=== PATIENT | female | born 1960 | race Two or more races ===

== ENCOUNTER 2018-03-12 10:23 | Inpatient (IN) | payer MEDICAID ==
[~2018-03-12] VITALS: Ht 154.9 cm; Wt 57.6 kg
[2018-03-12] VITALS (23 sets, daily range): BP systolic 80–172; BP diastolic 51–115
--- NOTE | 2018-03-12 10:34 | Emergency Room Report ---
History of Present Illness General Chief Complaint: CPR Source: EMS Present Illness HPI Patient is a 57-year-old male brought in by EMS after full arrest. 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 Recent decannulation. The patient was noted to have the low blood pressure the arrested about being transported by EMS. Patient prior history of seizure disorder. The patient been taking Vimpat as well as Keppra. The patient recently treated for urinary tract infection. The patient was noted to have arrest approximately 7 minutes prior to arrival and had ongoing CPR by EMS. Allergies: Coded Allergies: No Known Allergies (Unverified , 03/12/18) Patient History Past Medical History: see triage record Last Menstrual Period: na Reviewed Nursing Documentation: PMH: Agreed; PSxH: Agreed Review of Systems All Other Systems: limited - by acut Physical Exam Vital Signs Date Time Temp Pulse Resp B/P (MAP) Pulse Ox O2 Delivery O2 Flow Rate FiO2 03/12/18 10:10 0 0 0/0 0 Ambu-Bag Sp02 EP Interpretation: reviewed, normal General Appearance: severe distress, Chronically Ill Head: atraumatic Eyes: bilateral eye PERRL ENT: dry mucus membranes, other - stoma open Neck: limited range of motion, tracheotomy Respiratory: no retraction, respiratory distress, rales Cardiovascular #1: tachycardia, other - asystole Gastrointestinal: no guarding, no hernia, other - gtube present Genitourinary: no CVA tenderness Musculoskeletal: decreased range of motion Neurologic: motor weakness - unresponsive, other Skin: other - decubitus ulcer Procedures Critical Care Time Critical Care Time Patient had a critical medical condition which untreated could potentially result in life or limb threatening injury. Total critical care time excluding procedures approximately 45 minutes. Central Line Central Line : Consent: Emergent Central Line Lumen: triple Maximal Sterile Barrier Tech: yes cap, yes mask, yes sterile gown, yes sterile gloves, yes large sterile sheet, yes hand hygiene, yes chlorhexidine prep Central Line Postion: internal jugular (R) Anesthesia: Lidocaine Complications: none Central Line Post Position: sutured, good blood return, position confirmed w / CXR Attempts: One Patient Tolerated: Well Complications: None Intubation Intubation : Consent: Emergent Time of Intubation: 10:23 Tube Size (cm): 6.0 Breath Sounds after Intubation: equal Intubation Complications: no complications Post Intubation Xray: Yes Attempts: One Patient Tolerated: Well Complications: None Medical Decision Making Diagnostic Impression: Primary Impression: Cardiac arrest Additional Impressions: Respiratory failure Urinary tract infection Pneumonia ER Course patient presented after full arrest.Differential diagnoses included was not limited to cardiac arrhythmia, hypoxemia, pulmonary embolism among others. Because of complexity of patient's case laboratory testing and imaging studies were ordered.The patient was initially noted to have a full cardiac arrest. The patient was the intubated with a 6-0 ET tube. The patient was given epinephrine 1 as well as IV bicarbonate. The patient had subsequent return spontaneous circulation. The patient brief episode of V. tach this resolved spontaneously prior to cardioversion and was given amiodarone IV. Patient was discussed with Dr. Cortez for inpatient management. Labs Test 03/12/18 10:55 03/12/18 11:06 03/12/18 11:35 03/12/18 12:05 White Blood Count 25.6 K/UL (4.8-10.8) Red Blood Count 3.78 M/UL (4.20-5.40) Hemoglobin 11.1 G/DL (12.0-16.0) Hematocrit 36.0 % (37.0-47.0) Mean Corpuscular Volume 95 FL (80-99) Mean Corpuscular Hemoglobin 29.3 PG (27.0-31.0) Mean Corpuscular Hemoglobin Concent 30.7 G/DL (32.0-36.0) Red Cell Distribution Width 11.8 % (11.6-14.8) Platelet Count 254 K/UL (150-450) Mean Platelet Volume 7.2 FL (6.5-10.1) Neutrophils (%) (Auto) % (45.0-75.0) Lymphocytes (%) (Auto) % (20.0-45.0) Monocytes (%) (Auto) % (1.0-10.0) Eosinophils (%) (Auto) % (0.0-3.0) Basophils (%) (Auto) % (0.0-2.0) Differential Total Cells Counted 100 Neutrophils % (Manual) 76 % (45-75) Lymphocytes % (Manual) 12 % (20-45) Monocytes % (Manual) 10 % (1-10) Eosinophils % (Manual) 0 % (0-3) Basophils % (Manual) 0 % (0-2) Band Neutrophils 2 % (0-8) Platelet Estimate Adequate Platelet Morphology Normal Hypochromasia 1+ Prothrombin Time 12.3 SEC (9.30-11.50) Prothromb Time International Ratio 1.2 (0.9-1.1) Activated Partial Thromboplast Time 32 SEC (23-33) Sodium Level 145 MMOL/L (136-145) Potassium Level 3.4 MMOL/L (3.5-5.1) Chloride Level 107 MMOL/L (98-107) Carbon Dioxide Level 26 MMOL/L (21-32) Anion Gap 12 mmol/L (5-15) Blood Urea Nitrogen 18 mg/dL (7-18) Creatinine 0.8 MG/DL (0.55-1.30) Estimat Glomerular Filtration Rate > 60 mL/min (>60) Glucose Level 452 MG/DL (74-106) Calcium Level 8.6 MG/DL (8.5-10.1) Phosphorus Level 7.4 MG/DL (2.5-4.9) Total Bilirubin 0.2 MG/DL (0.2-1.0) Aspartate Amino Transf (AST/SGOT) 63 U/L (15-37) Alanine Aminotransferase (ALT/SGPT) 110 U/L (12-78) Alkaline Phosphatase 205 U/L (46-116) Total Creatine Kinase 62 U/L (26-308) Creatine Kinase MB < 0.5 NG/ML (0.0-3.6) Creatine Kinase MB Relative Index 0.8 Troponin I 0.006 ng/mL (0.000-0.056) Pro-B-Type Natriuretic Peptide 4798 pg/mL (0-125) Total Protein 5.9 G/DL (6.4-8.2) Albumin 2.0 G/DL (3.4-5.0) Globulin 3.9 g/dL Albumin/Globulin Ratio 0.5 (1.0-2.7) Arterial Blood pH 7.067 (7.350-7.450) Arterial Blood Partial Pressure CO2 90.3 mmHg (35.0-45.0) Arterial Blood Partial Pressure O2 50.9 mmHg (75.0-100.0) Arterial Blood HCO3 25.4 mmol/L (22.0-26.0) Arterial Blood Oxygen Saturation 79.7 % (92.0-98.0) Arterial Blood Base Excess -6.4 Akira Test Positive Urine Color Yellow Urine Appearance Slightly cloudy Urine pH 5 (4.5-8.0) Urine Specific [place] 1.025 (1.005-1.035) Urine Protein 4+ (NEGATIVE) Urine Glucose (UA) 4+ (NEGATIVE) Urine Ketones Negative (NEGATIVE) Urine Blood 4+ (NEGATIVE) Urine Nitrite Negative (NEGATIVE) Urine Bilirubin Negative (NEGATIVE) Urine Urobilinogen Normal MG/DL (0.0-1.0) Urine Leukocyte Esterase 3+ (NEGATIVE) Urine RBC 5-10 /HPF (0 - 2) Urine WBC 40-60 /HPF (0 - 2) Urine Squamous Epithelial Cells Few /LPF (NONE/OCC) Urine Bacteria Moderate /HPF (NONE) EKG Diagnostic Results Rate: normal Rhythm: NSR ST Segments: no acute changes Chest X-Ray Diagnostic Results Chest X-Ray Diagnostic Results : Chest X-Ray Ordered: Yes # of Views/Limited/Complete: 1 View Indication: Chest Pain EP Interpretation: No Interpretation: other - no pneumothorax, right lung infiltrate rib fracture Electronically Signed by: Electronically signed by Dr. Pablito Lamb M.D. Last Vital Signs Date Time Temp Pulse Resp B/P (MAP) Pulse Ox O2 Delivery O2 Flow Rate FiO2 03/12/18 10:10 0 0 0/0 0 Ambu-Bag Status: unchanged Disposition: ADMITTED INPATIENT Condition: Critical Pablito Lamb MD Mar 12, 2018 10:34
[2018-03-12] MEDS ORDERED: FAMOTIDINE10 MG ORAL (10:42)
[2018-03-12] MEDS ORDERED: FERROUS SU220 MG/53 PO (10:42)
[2018-03-12] MEDS ORDERED: PROCRIT2000 UNIT/ SUBQ (10:42)
[2018-03-12] MEDS ORDERED: MILK OF MA400 MG/51 GT (10:42)
[2018-03-12] MEDS ORDERED: LEVETIRACETAM500 MG GT (10:42)
[2018-03-12] MEDS ORDERED: FLEET ENEMA133 ML RECTAL (10:42)
[2018-03-12] MEDS ORDERED: BISACODYL5 MG GT (10:42)
[2018-03-12] MEDS ORDERED: VIMPAT200 MG GT (10:42)
[2018-03-12] MEDS ORDERED: DOCUSATE SODIU100 MG GT (10:42)
[2018-03-12] MEDS ORDERED: ATENOLOL25 MG GT (10:42)
[2018-03-12] MEDS ORDERED: ASPIR 8181 MG GT (10:42)
[2018-03-12] MEDS ORDERED: VITAMIN D1000 UNI1 GT (10:52)
[2018-03-12] MEDS ORDERED: SUPPORT118 ML GT (10:52)
[2018-03-12] MEDS ORDERED: ZOFRAN4 M3 GT (10:52)
[2018-03-12] MEDS ORDERED: TOPIRAMATE100 MG GT (10:52)
[2018-03-12] MEDS ORDERED: ACETAMINOPHEN LIQUID GT (10:52)
[2018-03-12] MEDS ORDERED: VITAMIN C LIQUID GT (10:52)
[2018-03-12] MEDS ORDERED: UTI-STAT L3875 MG/31 GT (10:52)
[2018-03-12] MEDS ORDERED: Cefepime HCl 1 GM in NS 55 ML IV SCH (11:15)
[2018-03-12] MEDS ORDERED: Vancomycin 1 GM in NS 275 ML IV ONE (11:15)
[2018-03-12 11:25] LABS: HEMOGLOBIN 11.1 G/DL (12.0-16.0); MEAN CORPUSCULAR VOLUME 95 FL (80-99); PLATELET COUNT 254 K/UL (150-450); RED BLOOD COUNT 3.78 M/UL (4.20-5.40); RED CELL DISTRIBUTION WIDTH 11.8 % (11.6-14.8); WHITE BLOOD COUNT 25.6 K/UL (4.8-10.8)
[2018-03-12 11:28] LABS: ANION GAP 12 mmol/L (5-15); BLOOD UREA NITROGEN 18 mg/dL (7-18); CALCIUM 8.6 MG/DL (8.5-10.1); CARBON DIOXIDE 26 MMOL/L (21-32); CHLORIDE 107 MMOL/L (98-107); CREATININE 0.8 MG/DL (0.55-1.30); POTASSIUM 3.4 MMOL/L (3.5-5.1); SODIUM 145 MMOL/L (136-145)
[2018-03-12 11:29] LABS: INR 1.2 (0.9-1.1)
[2018-03-12 11:43] LABS: ALANINE AMINOTRANSFERASE 110 U/L (12-78); ALBUMIN/GLOBULIN RATIO 0.5 (1.0-2.7); ALKALINE PHOSPHATASE 205 U/L (46-116); ASPARTATE AMINO TRANSFERASE 63 U/L (15-37); BILIRUBIN,TOTAL 0.2 MG/DL (0.2-1.0); CKMB < 0.5 NG/ML (0.0-3.6); CREATINE KINASE 62 U/L (26-308); PHOSPHORUS 7.4 MG/DL (2.5-4.9)
--- NOTE | 2018-03-12 11:46 | Diagnostic Imaging Report ---
INDICATION: Shortness of breath COMPARISON: None FINDINGS: Single frontal view demonstrates enlarged heart size. Endotracheal tube 6.4 cm above the charley. Right internal jugular catheter with tip in the distal superior vena cava. Patchy bilateral lung opacities, right greater than left. No pleural effusions. The visualized osseous structures are within normal limits. IMPRESSION: Enlarged heart size. Endotracheal tube 6.4 cm above the charley. Right internal jugular catheter with tip in the distal superior vena cava. Patchy bilateral lung opacities, right greater than left.
[2018-03-12 12:15] LABS: APPEARANCE,URINE SLIGHTLY CLOUDY; BILIRUBIN, URINE NEGATIVE (NEGATIVE); GLUCOSE, URINE (UA) 4+ (NEGATIVE); KETONES,URINE NEGATIVE (NEGATIVE); LEUKOCYTE ESTERASE ,URINE 3+ (NEGATIVE); NITRITE,URINE NEGATIVE (NEGATIVE); PH,URINE 5 (4.5-8.0); PROTEIN,URINE 4+ (NEGATIVE); UROBILINOGEN,URINE NORMAL MG/DL (0.0-1.0)
[2018-03-12 12:24] LABS: COLOR,URINE YELLOW
--- NOTE | 2018-03-12 17:42 | History and Physical ---
History of Present Illness General Reason for Hospitalization: CPR Present Illness Allergies: Coded Allergies: No Known Allergies (Unverified , 03/12/18) Medication History Scheduled Aspirin* (Aspir 81*), 81 MG GT DAILY, (Reported) Atenolol* (Tenormin*), 12.5 MG GT DAILY, (Reported) Cholecalciferol (Vitamin D3)* (Vitamin D*), 1,000 UNIT GT BID, (Reported) Cran/Vitc/Mannose/Inulin/Brom (Uti-Stat Liquid), 3,875 MG GT BID, (Reported) Docusate Sodium* (Docusate Sodium*), 100 MG GT DAILY, (Reported) Epoetin Liam (Procrit), 1,000 UNIT SUBQ 3XW, (Reported) Famotidine (Famotidine), 20 MG ORAL EVERY 12 HOURS, (Reported) Ferrous Sulfate (Ferrous Sulfate), 330 MG PO THREE TIMES A DAY, (Reported) Lacosamide (Vimpat), 200 MG GT THREE TIMES A DAY, (Reported) Levetiracetam* (Levetiracetam*), 1,500 MG GT TWICE A DAY, (Reported) Multivitamin with Minerals (Support), 15 ML GT DAILY, (Reported) Topiramate* (Topamax*), 100 MG GT THREE TIMES A DAY, (Reported) [Vitamin C Liquid], 5 ML GT BID, (Reported) Scheduled PRN Bisacodyl* (Dulcolax*), 10 MG GT ONCE PRN for Constipation, (Reported) Magnesium Hydroxide* (Milk Of Magnesia*), 30 ML GT DAILY PRN for Constipation, ( Reported) Na Phos,M-B/Na Phos,Di-Ba* (Fleet Enema*), 133 ML RECTAL DAILY PRN for Constipation, (Reported) Ondansetron* (Zofran*), 4 MG GT Q6H PRN for Nausea & Vomiting, (Reported) [Acetaminophen Liquid], 640 MG GT Q4HR PRN for Fever/Headache/Mild Pain, ( Reported) Patient History Healthcare decision maker N Resuscitation status Advanced Directive on File Physical Exam General Appearance: thin Lines, tubes and drains: central line HEENT: normocephalic, atraumatic, no JVD Neck: trach Respiratory/Chest: lungs clear Cardiovascular/Chest: normal peripheral pulses, tachycardia Abdomen: no organomegaly, feeding tube Extremities: no edema Neurologic: unresponsiveness Musculoskeletal: atrophy Last 24 Hour Vital Signs Date Time Temp Pulse Resp B/P (MAP) Pulse Ox O2 Delivery O2 Flow Rate FiO2 03/12/18 17:00 140 19 101/64 (76) 100 03/12/18 16:30 138 18 92/54 (67) 100 03/12/18 16:00 136 19 103/79 (87) 100 03/12/18 16:00 127 03/12/18 15:45 83/55 03/12/18 15:30 97.3 129 19 99/82 (88) 100 97.3 03/12/18 15:29 119 22 100 03/12/18 15:09 97.5 92 20 154/115 91 Mechanical Ventilator 15.0 100 97.5 03/12/18 14:14 97.5 92 20 154/115 91 Mechanical Ventilator 15.0 100 97.5 03/12/18 13:04 80 18 100 03/12/18 12:55 86 15 110/74 94 Mechanical Ventilator 15.0 100 03/12/18 12:15 97.5 76 18 103/51 95 Mechanical Ventilator 15.0 100 97.5 03/12/18 12:15 103/51 03/12/18 12:10 78/62 03/12/18 12:05 76/50 03/12/18 12:00 15.0 100 03/12/18 12:00 80/54 03/12/18 11:55 95/53 03/12/18 11:50 60/50 03/12/18 11:45 75 18 80/70 100 Mechanical Ventilator 15.0 100 03/12/18 11:45 80/70 03/12/18 11:30 97.0 88 20 117/68 100 Mechanical Ventilator 15.0 100 97.0 03/12/18 11:10 15.0 100 03/12/18 10:45 97.0 85 18 105/80 100 Mechanical Ventilator 15.0 100 97.0 03/12/18 10:43 87 15 100 03/12/18 10:30 125 18 Mechanical Ventilator 15.0 100 03/12/18 10:30 125 18 172/67 100 Mechanical Ventilator 15.0 100 03/12/18 10:10 0 0 0/0 0 Ambu-Bag Laboratory Tests Test 03/12/18 10:55 03/12/18 11:06 03/12/18 11:35 03/12/18 12:05 White Blood Count 25.6 K/UL (4.8-10.8) *H Red Blood Count 3.78 M/UL (4.20-5.40) L Hemoglobin 11.1 G/DL (12.0-16.0) L Hematocrit 36.0 % (37.0-47.0) L Mean Corpuscular Volume 95 FL (80-99) Mean Corpuscular Hemoglobin 29.3 PG (27.0-31.0) Mean Corpuscular Hemoglobin Concent 30.7 G/DL (32.0-36.0) L Red Cell Distribution Width 11.8 % (11.6-14.8) Platelet Count 254 K/UL (150-450) Mean Platelet Volume 7.2 FL (6.5-10.1) Neutrophils (%) (Auto) % (45.0-75.0) Lymphocytes (%) (Auto) % (20.0-45.0) Monocytes (%) (Auto) % (1.0-10.0) Eosinophils (%) (Auto) % (0.0-3.0) Basophils (%) (Auto) % (0.0-2.0) Differential Total Cells Counted 100 Neutrophils % (Manual) 76 % (45-75) H Lymphocytes % (Manual) 12 % (20-45) L Monocytes % (Manual) 10 % (1-10) Eosinophils % (Manual) 0 % (0-3) Basophils % (Manual) 0 % (0-2) Band Neutrophils 2 % (0-8) Platelet Estimate Adequate Platelet Morphology Normal Hypochromasia 1+ Prothrombin Time 12.3 SEC (9.30-11.50) H Prothromb Time International Ratio 1.2 (0.9-1.1) H Activated Partial Thromboplast Time 32 SEC (23-33) Sodium Level 145 MMOL/L (136-145) Potassium Level 3.4 MMOL/L (3.5-5.1) L Chloride Level 107 MMOL/L (98-107) Carbon Dioxide Level 26 MMOL/L (21-32) Anion Gap 12 mmol/L (5-15) Blood Urea Nitrogen 18 mg/dL (7-18) Creatinine 0.8 MG/DL (0.55-1.30) Estimat Glomerular Filtration Rate > 60 mL/min (>60) Glucose Level 452 MG/DL (74-106) H Lactic Acid Level 9.60 mmol/L (0.4-2.0) H 5.50 mmol/L (0.66-2.22) H Calcium Level 8.6 MG/DL (8.5-10.1) Phosphorus Level 7.4 MG/DL (2.5-4.9) H Magnesium Level 2.3 MG/DL (1.8-2.4) Total Bilirubin 0.2 MG/DL (0.2-1.0) Aspartate Amino Transf (AST/SGOT) 63 U/L (15-37) H Alanine Aminotransferase (ALT/SGPT) 110 U/L (12-78) H Alkaline Phosphatase 205 U/L (46-116) H Total Creatine Kinase 62 U/L (26-308) Creatine Kinase MB < 0.5 NG/ML (0.0-3.6) Creatine Kinase MB Relative Index 0.8 Troponin I 0.006 ng/mL (0.000-0.056) Pro-B-Type Natriuretic Peptide 4798 pg/mL (0-125) H Total Protein 5.9 G/DL (6.4-8.2) L Albumin 2.0 G/DL (3.4-5.0) L Globulin 3.9 g/dL Albumin/Globulin Ratio 0.5 (1.0-2.7) L Arterial Blood pH 7.067 (7.350-7.450) Arterial Blood Partial Pressure CO2 90.3 mmHg (35.0-45.0) *H Arterial Blood Partial Pressure O2 50.9 mmHg (75.0-100.0) L Arterial Blood HCO3 25.4 mmol/L (22.0-26.0) Arterial Blood Oxygen Saturation 79.7 % (92.0-98.0) L Arterial Blood Base Excess -6.4 Akira Test Positive Urine Color Yellow Urine Appearance Slightly cloudy Urine pH 5 (4.5-8.0) Urine Specific [place] 1.025 (1.005-1.035) Urine Protein 4+ (NEGATIVE) H Urine Glucose (UA) 4+ (NEGATIVE) H Urine Ketones Negative (NEGATIVE) Urine Blood 4+ (NEGATIVE) H Urine Nitrite Negative (NEGATIVE) Urine Bilirubin Negative (NEGATIVE) Urine Urobilinogen Normal MG/DL (0.0-1.0) Urine Leukocyte Esterase 3+ (NEGATIVE) H Urine RBC 5-10 /HPF (0 - 2) H Urine WBC 40-60 /HPF (0 - 2) H Urine Squamous Epithelial Cells Few /LPF (NONE/OCC) Urine Bacteria Moderate /HPF (NONE) H Height (Feet): 5 Height (Inches): 2.00 Weight (Pounds): 120 Medications Current Medications Medications (Trade) Dose Ordered Sig/Emily Route PRN Reason Start Time Stop Time Status Last Admin Dose Admin Cefepime HCl 1 gm/ Sodium Chloride 55 ml @ 110 mls/hr Q12H IV 03/12/18 11:15 03/13/18 11:14 03/12/18 12:26 Metronidazole 100 ml @ 100 mls/hr Q6H IV 03/12/18 11:15 03/13/18 11:14 03/12/18 11:48 Norepinephrine Bitartrate 4 mg/ Dextrose 250 ml @ 0 mls/hr Q24H IV 03/12/18 11:30 04/11/18 11:29 03/12/18 15:45 Objective Narrative General Appearance: Intubated, Chronically Ill Head: atraumatic Eyes: bilateral eye PERRL ENT: dry mucus membranes, other - stoma open Neck: limited range of motion, tracheotomy Respiratory: no retraction, respiratory distress, rales Cardiovascular #1: tachycardia, other - asystole Gastrointestinal: no guarding, no hernia, other - gtube present Genitourinary: no CVA tenderness Musculoskeletal: decreased range of motion Neurologic: motor weakness - unresponsive, other Skin: other - decubitus ulcer Assessment/Plan Status Narrative Review of Systems All Other Systems: not available Physical Exam Vital Signs Date Time Temp Pulse Resp B/P (MAP) Pulse Ox O2 Delivery O2 Flow Rate FiO2 03/12/18 10:10 0 0 0/0 0 Ambu-Bag Procedures Critical Care Time Critical Care Time Patient had a critical medical condition which untreated could potentially result in life or limb threatening injury. Total critical care time excluding procedures approximately 45 minutes. Diagnostic Impression: Primary Impression: Cardiac arrest Additional Impressions: Respiratory failure Urinary tract infection Pneumonia The patient was the intubated with a 6-0 ET tube in the ED The patient was given epinephrine 1 as well as IV bicarbonate. The patient had subsequent return spontaneous circulation. The patient brief episode of V. tach this resolved spontaneously prior to cardioversion and was given amiodarone IV. Patient was discussed with Dr. Cortez for inpatient management. Labs Test 03/12/18 10:55 03/12/18 11:06 03/12/18 11:35 03/12/18 12:05 White Blood Count 25.6 K/UL (4.8-10.8) Red Blood Count 3.78 M/UL (4.20-5.40) Hemoglobin 11.1 G/DL (12.0-16.0) Hematocrit 36.0 % (37.0-47.0) Mean Corpuscular Volume 95 FL (80-99) Mean Corpuscular Hemoglobin 29.3 PG (27.0-31.0) Mean Corpuscular Hemoglobin Concent 30.7 G/DL (32.0-36.0) Red Cell Distribution Width 11.8 % (11.6-14.8) Platelet Count 254 K/UL (150-450) Mean Platelet Volume 7.2 FL (6.5-10.1) Neutrophils (%) (Auto) % (45.0-75.0) Lymphocytes (%) (Auto) % (20.0-45.0) Monocytes (%) (Auto) % (1.0-10.0) Eosinophils (%) (Auto) % (0.0-3.0) Basophils (%) (Auto) % (0.0-2.0) Differential Total Cells Counted 100 Neutrophils % (Manual) 76 % (45-75) Lymphocytes % (Manual) 12 % (20-45) Monocytes % (Manual) 10 % (1-10) Eosinophils % (Manual) 0 % (0-3) Basophils % (Manual) 0 % (0-2) Band Neutrophils 2 % (0-8) Platelet Estimate Adequate Platelet Morphology Normal Hypochromasia 1+ Prothrombin Time 12.3 SEC (9.30-11.50) Prothromb Time International Ratio 1.2 (0.9-1.1) Activated Partial Thromboplast Time 32 SEC (23-33) Sodium Level 145 MMOL/L (136-145) Potassium Level 3.4 MMOL/L (3.5-5.1) Chloride Level 107 MMOL/L (98-107) Carbon Dioxide Level 26 MMOL/L (21-32) Anion Gap 12 mmol/L (5-15) Blood Urea Nitrogen 18 mg/dL (7-18) Creatinine 0.8 MG/DL (0.55-1.30) Estimat Glomerular Filtration Rate > 60 mL/min (>60) Glucose Level 452 MG/DL (74-106) Calcium Level 8.6 MG/DL (8.5-10.1) Phosphorus Level 7.4 MG/DL (2.5-4.9) Total Bilirubin 0.2 MG/DL (0.2-1.0) Aspartate Amino Transf (AST/SGOT) 63 U/L (15-37) Alanine Aminotransferase (ALT/SGPT) 110 U/L (12-78) Alkaline Phosphatase 205 U/L (46-116) Total Creatine Kinase 62 U/L (26-308) Creatine Kinase MB < 0.5 NG/ML (0.0-3.6) Creatine Kinase MB Relative Index 0.8 Troponin I 0.006 ng/mL (0.000-0.056) Pro-B-Type Natriuretic Peptide 4798 pg/mL (0-125) Total Protein 5.9 G/DL (6.4-8.2) Albumin 2.0 G/DL (3.4-5.0) Globulin 3.9 g/dL Albumin/Globulin Ratio 0.5 (1.0-2.7) Arterial Blood pH 7.067 (7.350-7.450) Arterial Blood Partial Pressure CO2 90.3 mmHg (35.0-45.0) Arterial Blood Partial Pressure O2 50.9 mmHg (75.0-100.0) Arterial Blood HCO3 25.4 mmol/L (22.0-26.0) Arterial Blood Oxygen Saturation 79.7 % (92.0-98.0) Arterial Blood Base Excess -6.4 Akira Test Positive Urine Color Yellow Urine Appearance Slightly cloudy Urine pH 5 (4.5-8.0) Urine Specific [place] 1.025 (1.005-1.035) Urine Protein 4+ (NEGATIVE) Urine Glucose (UA) 4+ (NEGATIVE) Urine Ketones Negative (NEGATIVE) Urine Blood 4+ (NEGATIVE) Urine Nitrite Negative (NEGATIVE) Urine Bilirubin Negative (NEGATIVE) Urine Urobilinogen Normal MG/DL (0.0-1.0) Urine Leukocyte Esterase 3+ (NEGATIVE) Urine RBC 5-10 /HPF (0 - 2) Urine WBC 40-60 /HPF (0 - 2) Urine Squamous Epithelial Cells Few /LPF (NONE/OCC) Urine Bacteria Moderate /HPF (NONE) EKG Diagnostic Results Rate: normal Rhythm: NSR ST Segments: no acute changes Chest X-Ray Diagnostic Results Chest X-Ray Diagnostic Results : Chest X-Ray Ordered: Yes # of Views/Limited/Complete: 1 View Indication: Chest Pain EP Interpretation: No Interpretation: other - no pneumothorax, right lung infiltrate rib fracture Electronically Signed by: Electronically signed by Dr. Pablito Lamb M.D. Assessment/Plan Patient is a 57-year-old female brought in by EMS after full arrest. 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 Recent decannulation. The patient was noted to have the low blood pressure the arrested about being transported by EMS. Patient prior history of seizure disorder. The patient been taking Vimpat as well as Keppra. The patient recently treated for urinary tract infection. The patient was noted to have arrest approximately 7 minutes prior to arrival and had ongoing CPR by EMS. Patient currently intubated CXR possible infiltrates RLL Assessment: Chronic respiratory failure, recently weaned of ventilator and decanulated S/p Cardiorespiratory arrest, ROSC in ED Elevated WCC and infiltrates on CXR Chronic muscular weakness H/o seizures Hyperphosphatemia Plan: Zosyn and Vancomycin per Pharmacy IV fluids: NS @75/hr ISS Wean Levophed - Map >65 Continue Ventilator settings AC Vt 18 500 P10 100%, recheck ABG PPX Trend labs Cultures Cardiology Consult - Dr Art - Echo pending Neurology Dr Andre, CT head pending, continue anriseizure medications ID Dr Rojas Renal Consult Dr Dior: Increased phosphate William Pimentel MD Mar 12, 2018 17:42
[2018-03-12] MEDS ORDERED: LORazepam Inj 2mg/ml 1ml IV PRN (18:00)
[2018-03-12] MEDS: Norepinephrine Bitartrate 8 MG in D5W 500ml 550 ML IV SCH (20:45)
[2018-03-12] MEDS: Heparin 5000 units/ml inj SUBQ SCH (21:00)
[2018-03-12 21:10] LABS: APPEARANCE,URINE CLOUDY; BILIRUBIN, URINE NEGATIVE (NEGATIVE); GLUCOSE, URINE (UA) 1+ (NEGATIVE); KETONES,URINE NEGATIVE (NEGATIVE); LEUKOCYTE ESTERASE ,URINE 2+ (NEGATIVE); NITRITE,URINE NEGATIVE (NEGATIVE); PH,URINE 5 (4.5-8.0); PROTEIN,URINE 3+ (NEGATIVE); UROBILINOGEN,URINE NORMAL MG/DL (0.0-1.0)
[2018-03-12 21:11] LABS: COLOR,URINE YELLOW
[2018-03-12] MEDS: NovoLOG Insulin Flexpen SUBQ SCH (21:33)
[2018-03-12] MEDS: Lacosamide 100 MG TABLET ORAL SCH (22:43)
[2018-03-12] MEDS: Piperacillin/Tazobactam 3.375 GM in NS 110 ML IVPB SCH (22:43)
[2018-03-13] VITALS (52 sets, daily range): BP systolic 64–148; BP diastolic 44–86
[2018-03-13] MEDS: Norepinephrine Bitartrate 8 MG in D5W 500ml 550 ML IV SCH ×4 (03:20→23:01)
[2018-03-13 05:09] LABS: HEMATOCRIT 32.7 % (37.0-47.0); HEMOGLOBIN 10.8 G/DL (12.0-16.0); MEAN CORPUSCULAR VOLUME 90 FL (80-99); PLATELET COUNT 182 K/UL (150-450); RED BLOOD COUNT 3.62 M/UL (4.20-5.40); RED CELL DISTRIBUTION WIDTH 11.8 % (11.6-14.8); WHITE BLOOD COUNT 21.5 K/UL (4.8-10.8)
[2018-03-13 05:35] LABS: ALANINE AMINOTRANSFERASE 84 U/L (12-78); ALBUMIN/GLOBULIN RATIO 0.5 (1.0-2.7); ALKALINE PHOSPHATASE 160 U/L (46-116); ANION GAP 7 mmol/L (5-15); ASPARTATE AMINO TRANSFERASE 36 U/L (15-37); BILIRUBIN,TOTAL 0.7 MG/DL (0.2-1.0); BLOOD UREA NITROGEN 19 mg/dL (7-18); CALCIUM 9.3 MG/DL (8.5-10.1); CARBON DIOXIDE 28 MMOL/L (21-32); CHLORIDE 107 MMOL/L (98-107); CREATININE 0.5 MG/DL (0.55-1.30); PHOSPHORUS 1.6 MG/DL (2.5-4.9); POTASSIUM 3.5 MMOL/L (3.5-5.1); SODIUM 141 MMOL/L (136-145)
[2018-03-13] MEDS: Piperacillin/Tazobactam 3.375 GM in NS 110 ML IVPB SCH ×3 (05:44→21:57)
[2018-03-13] MEDS: Lacosamide 100 MG TABLET ORAL SCH ×3 (05:44→21:57)
[2018-03-13] MEDS: NovoLOG Insulin Flexpen SUBQ SCH ×4 (06:35→20:45)
[2018-03-13] MEDS: Heparin 5000 units/ml inj SUBQ SCH ×2 (09:40→20:44)
--- NOTE | 2018-03-13 10:28 | Diagnostic Imaging Report ---
Indication: Shortness of breath Technique: One view of the chest Comparison: 03/12/2018 Findings: Since right upper lobe and perihilar consolidation has improved but persists and is still considerable. Interstitial opacities in the left lung appear improved but persist. There is suggestion of increasing retrocardiac opacity. Endotracheal tube remains positioned thoracic inlet. There is probably some atelectasis at the right lateral lung base. The heart size. Impression: Overall improved but persistent and still extensive bilateral pulmonary parenchymal disease as described above Suggestion of increasing retrocardiac consolidation, over one day Other findings as noted
[2018-03-13] MEDS ORDERED: Potassium Phosphate 20 MM in NS 275 ML IV SCH (13:30)
[2018-03-13] MEDS: Vancomycin 1gm/D5W 275ml IVPB SCH ×2 (15:00)
[2018-03-13] MEDS ORDERED: NS 275ml ONE ×2 (16:33)
[2018-03-13] MEDS ORDERED: Tubing IV Secondary IV ONE (16:33)
--- NOTE | 2018-03-13 17:00 | Consultation ---
DATE OF CONSULTATION: 03/13/2018 INFECTIOUS DISEASE CONSULTATION This consult is for coverage of Dr. Rojas. CONSULTING PHYSICIAN: Del Wakefield M.D. PRIMARY ATTENDING PHYSICIAN: Esvin Cortez M.D. REASON FOR CONSULT: Sepsis, pneumonia, and UTI. HISTORY OF PRESENT ILLNESS: This 57-year-old patient was admitted yesterday from nursing facility after a cardiac arrest. The patient had asystole and had CPR on the way to the hospital. She has history of respiratory failure, recently was decannulated on March 10, and had low blood pressure. After arrest, she had seizure. Arrest happened 7 minutes prior to arrival. The patient is currently in ICU, on vasopressor, a central line was put, unconscious. PAST MEDICAL HISTORY: Significant for diabetes mellitus, history of chronic respiratory failure, history of tracheostomy, history of G-tube placement, and atrial fibrillation. SOCIAL HISTORY: snf resident. No other history obtainable by the patient. ALLERGIES: No known drug allergy. MEDICATIONS: Zosyn, lacosamide, heparin, famotidine, insulin, norepinephrine, Keppra, lorazepam, sodium chloride, a dosr Vancomycin and cefepime in the ER. PHYSICAL EXAMINATION: VITAL SIGNS: Temperature 98.7, was afebrile since admission, pulse 125, and blood pressure 112/74 on Levophed. GENERAL APPEARANCE: Unconscious. HEAD AND NECK: Ferney conjunctivae. Orally intubated. HEART: Tachycardic. She has right IJ line. LUNGS: On mechanical ventilator, she has bilateral rhonchi. ABDOMEN: Soft. G-tube in place. EXTREMITIES: She has no significant edema. She has bilateral footdrop. LABORATORY AND DIAGNOSTIC DATA: WBC 21.5, hemoglobin 10.8, hematocrit 32.7, and platelet is 182,000. Sodium 141, potassium 3.5, chloride 107, bicarbonate 28, BUN 19, creatinine 0.5, glucose is 160. Lactic acid is 3. Troponin was within normal limit. Urine culture is growing gram-negative bacilli. UA showed wbc of 40-60, leukocyte esterase 2+, and 4+ blood. Chest x-ray showed bilateral patchy infiltrates, right more than left. The second chest x-ray shows improvement. IMPRESSION: 1. Cardiac arrest, likely secondary to noncardiac event. 2. Aspiration pneumonia. 3. UTI. 4. Respiratory failure. 5. Septic shock. 6. Diabetes mellitus. 7. Seizure disorder. 8. Septic shock RECOMMENDATION: We will continue with vancomycin and Zosyn. We will follow up blood culture, sputum culture, and urine culture. We will follow up the clinical course. At the end of my exam, I thank primary attending, Dr. Esvin Cortez, for involving me in the care of this patient. Del Wakefield M.D. DR: MAY JOB#: [id number] CC: [email or web address]
--- NOTE | 2018-03-13 17:58 | Consultation ---
Consult Note Consult Note NEUROLOGY CONSULTATION: Full note dictated #[id number] 57 y/o, CF of ?H with a PH of respiratory failure, seizure disorder, and anoxic/ischemic brain injury who lives in a NH and is fed with a PEG. She was found unresponsive in her NH. When the paramedics got to her she was in full arrest. By the time she could be resuscitated ~20 minutes had passed. She had been comatose. ON EXAM: EM on OCM Pupils R2.5/L3.5 RL No other signs of cortical or brainstem function. Areflexic. IMPRESSION: Patient with prior H/O respiratory failure and seizures who came in following full arrest. Prognosis for recovery of brain function poor. REC: Continue present Rx. EEG Observe. Hayde Andre M.D., M.S.P.HAYDE OLIVERA Mar 13, 2018 17:58
[2018-03-13] MEDS: Dyna-Hex 2% Top Sol 2oz TOPIC SCH (20:07)
--- NOTE | 2018-03-13 21:32 | Pulmonolgy Critical Care Note ---
Critical Care - Asmt/Plan Assessment/Plan: Pulmonary and Critical Care Follow Up Note Reason for Hospitalization: CPR Assessment: Chronic respiratory failure, recently weaned of ventilator and decanulated S/p Cardiorespiratory arrest, ROSC in ED Elevated WCC and infiltrates on CXR Chronic muscular weakness H/o seizures Hyperphosphatemia now resolved Plan: Zosyn and Vancomycin per Pharmacy IV fluids: NS @75/hr ISS Wean Levophed - Map >65 Continue Ventilator settings AC Vt 16 470 P10 100%, recheck ABG PPX Trend labs Cultures Cardiology Consult - Dr Art - Echo pending Neurology Dr Andre, CT head pending, continue antiseizure medications ID Dr Rojas Renal Consult Dr Dior: Increased phosphate Present Illness Allergies: Coded Allergies: No Known Allergies (Unverified , 03/12/18) Medication History Scheduled Aspirin* (Aspir 81*), 81 MG GT DAILY, (Reported) Atenolol* (Tenormin*), 12.5 MG GT DAILY, (Reported) Cholecalciferol (Vitamin D3)* (Vitamin D*), 1,000 UNIT GT BID, (Reported) Cran/Vitc/Mannose/Inulin/Brom (Uti-Stat Liquid), 3,875 MG GT BID, (Reported) Docusate Sodium* (Docusate Sodium*), 100 MG GT DAILY, (Reported) Epoetin Liam (Procrit), 1,000 UNIT SUBQ 3XW, (Reported) Famotidine (Famotidine), 20 MG ORAL EVERY 12 HOURS, (Reported) Ferrous Sulfate (Ferrous Sulfate), 330 MG PO THREE TIMES A DAY, (Reported) Lacosamide (Vimpat), 200 MG GT THREE TIMES A DAY, (Reported) Levetiracetam* (Levetiracetam*), 1,500 MG GT TWICE A DAY, (Reported) Multivitamin with Minerals (Support), 15 ML GT DAILY, (Reported) Topiramate* (Topamax*), 100 MG GT THREE TIMES A DAY, (Reported) [Vitamin C Liquid], 5 ML GT BID, (Reported) Scheduled PRN Bisacodyl* (Dulcolax*), 10 MG GT ONCE PRN for Constipation, (Reported) Magnesium Hydroxide* (Milk Of Magnesia*), 30 ML GT DAILY PRN for Constipation, ( Reported) Na Phos,M-B/Na Phos,Di-Ba* (Fleet Enema*), 133 ML RECTAL DAILY PRN for Constipation, (Reported) Ondansetron* (Zofran*), 4 MG GT Q6H PRN for Nausea & Vomiting, (Reported) [Acetaminophen Liquid], 640 MG GT Q4HR PRN for Fever/Headache/Mild Pain, ( Reported) Patient History Healthcare decision maker N Resuscitation status Advanced Directive on File Physical Exam General Appearance: thin Lines, tubes and drains: central line HEENT: normocephalic, atraumatic, no JVD Neck: trach Respiratory/Chest: lungs clear Cardiovascular/Chest: normal peripheral pulses, tachycardia Abdomen: no organomegaly, feeding tube Extremities: no edema Neurologic: unresponsiveness Musculoskeletal: atrophy Objective Narrative General Appearance: Intubated, Chronically Ill Head: atraumatic Eyes: bilateral eye PERRL ENT: dry mucus membranes, other - stoma open Neck: limited range of motion, tracheotomy Respiratory: no retraction, respiratory distress, rales Cardiovascular #1: tachycardia, other - asystole Gastrointestinal: no guarding, no hernia, other - gtube present Genitourinary: no CVA tenderness Musculoskeletal: decreased range of motion Neurologic: motor weakness - unresponsive, other Skin: other - decubitus ulcer Assessment/Plan Status Narrative Review of Systems All Other Systems: not available Total critical care time excluding procedures approximately 45 minutes. Diagnostic Impression: Primary Impression: Cardiac arrest Additional Impressions: Respiratory failure Urinary tract infection Pneumonia The patient was the intubated with a 6-0 ET tube in the ED The patient was given epinephrine 1 as well as IV bicarbonate. The patient had subsequent return spontaneous circulation. The patient brief episode of V. tach this resolved spontaneously prior to cardioversion and was given amiodarone IV. Patient was discussed with Dr. Cortez for inpatient management. Labs Test 03/12/18 10:55 03/12/18 11:06 03/12/18 11:35 03/12/18 12:05 White Blood Count 25.6 K/UL (4.8-10.8) Red Blood Count 3.78 M/UL (4.20-5.40) Hemoglobin 11.1 G/DL (12.0-16.0) Hematocrit 36.0 % (37.0-47.0) Mean Corpuscular Volume 95 FL (80-99) Mean Corpuscular Hemoglobin 29.3 PG (27.0-31.0) Mean Corpuscular Hemoglobin Concent 30.7 G/DL (32.0-36.0) Red Cell Distribution Width 11.8 % (11.6-14.8) Platelet Count 254 K/UL (150-450) Mean Platelet Volume 7.2 FL (6.5-10.1) Neutrophils (%) (Auto) % (45.0-75.0) Lymphocytes (%) (Auto) % (20.0-45.0) Monocytes (%) (Auto) % (1.0-10.0) Eosinophils (%) (Auto) % (0.0-3.0) Basophils (%) (Auto) % (0.0-2.0) Differential Total Cells Counted 100 Neutrophils % (Manual) 76 % (45-75) Lymphocytes % (Manual) 12 % (20-45) Monocytes % (Manual) 10 % (1-10) Eosinophils % (Manual) 0 % (0-3) Basophils % (Manual) 0 % (0-2) Band Neutrophils 2 % (0-8) Platelet Estimate Adequate Platelet Morphology Normal Hypochromasia 1+ Prothrombin Time 12.3 SEC (9.30-11.50) Prothromb Time International Ratio 1.2 (0.9-1.1) Activated Partial Thromboplast Time 32 SEC (23-33) Sodium Level 145 MMOL/L (136-145) Potassium Level 3.4 MMOL/L (3.5-5.1) Chloride Level 107 MMOL/L (98-107) Carbon Dioxide Level 26 MMOL/L (21-32) Anion Gap 12 mmol/L (5-15) Blood Urea Nitrogen 18 mg/dL (7-18) Creatinine 0.8 MG/DL (0.55-1.30) Estimat Glomerular Filtration Rate > 60 mL/min (>60) Glucose Level 452 MG/DL (74-106) Calcium Level 8.6 MG/DL (8.5-10.1) Phosphorus Level 7.4 MG/DL (2.5-4.9) Total Bilirubin 0.2 MG/DL (0.2-1.0) Aspartate Amino Transf (AST/SGOT) 63 U/L (15-37) Alanine Aminotransferase (ALT/SGPT) 110 U/L (12-78) Alkaline Phosphatase 205 U/L (46-116) Total Creatine Kinase 62 U/L (26-308) Creatine Kinase MB < 0.5 NG/ML (0.0-3.6) Creatine Kinase MB Relative Index 0.8 Troponin I 0.006 ng/mL (0.000-0.056) Pro-B-Type Natriuretic Peptide 4798 pg/mL (0-125) Total Protein 5.9 G/DL (6.4-8.2) Albumin 2.0 G/DL (3.4-5.0) Globulin 3.9 g/dL Albumin/Globulin Ratio 0.5 (1.0-2.7) Arterial Blood pH 7.067 (7.350-7.450) Arterial Blood Partial Pressure CO2 90.3 mmHg (35.0-45.0) Arterial Blood Partial Pressure O2 50.9 mmHg (75.0-100.0) Arterial Blood HCO3 25.4 mmol/L (22.0-26.0) Arterial Blood Oxygen Saturation 79.7 % (92.0-98.0) Arterial Blood Base Excess -6.4 Akira Test Positive Urine Color Yellow Urine Appearance Slightly cloudy Urine pH 5 (4.5-8.0) Urine Specific [place] 1.025 (1.005-1.035) Urine Protein 4+ (NEGATIVE) Urine Glucose (UA) 4+ (NEGATIVE) Urine Ketones Negative (NEGATIVE) Urine Blood 4+ (NEGATIVE) Urine Nitrite Negative (NEGATIVE) Urine Bilirubin Negative (NEGATIVE) Urine Urobilinogen Normal MG/DL (0.0-1.0) Urine Leukocyte Esterase 3+ (NEGATIVE) Urine RBC 5-10 /HPF (0 - 2) Urine WBC 40-60 /HPF (0 - 2) Urine Squamous Epithelial Cells Few /LPF (NONE/OCC) Urine Bacteria Moderate /HPF (NONE) EKG Diagnostic Results Rate: normal Rhythm: NSR ST Segments: no acute changes Chest X-Ray Diagnostic Results Chest X-Ray Diagnostic Results : Chest X-Ray Ordered: Yes # of Views/Limited/Complete: 1 View Indication: Chest Pain EP Interpretation: No Interpretation: other - no pneumothorax, right lung infiltrate rib fracture Electronically Signed by: Electronically signed by Dr. Pablito Lamb M.D. Assessment/Plan Patient is a 57-year-old female brought in by EMS after full arrest. 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 Recent decannulation. The patient was noted to have the low blood pressure the arrested about being transported by EMS. Patient prior history of seizure disorder. The patient been taking Vimpat as well as Keppra. The patient recently treated for urinary tract infection. The patient was noted to have arrest approximately 7 minutes prior to arrival and had ongoing CPR by EMS. Patient currently intubated CXR possible infiltrates RLL, ETT appropriate Critical Care - Objective Last 24 Hour Vital Signs Date Time Temp Pulse Resp B/P (MAP) Pulse Ox O2 Delivery O2 Flow Rate FiO2 03/13/18 21:05 123 16 80 03/13/18 20:00 Mechanical Ventilator 03/13/18 19:00 139 16 119/66 (83) 97 03/13/18 19:00 127 17 80 03/13/18 18:30 110 16 97/51 (66) 97 03/13/18 18:00 102/52 03/13/18 18:00 116 16 100/52 (68) 97 03/13/18 17:30 112 16 108/59 (75) 98 03/13/18 17:11 117 17 80 03/13/18 17:00 15.0 80 03/13/18 17:00 99.3 108 16 107/52 (70) 100 99.3 03/13/18 17:00 116/63 03/13/18 16:30 127 16 90/60 (70) 100 03/13/18 16:26 15.0 100 03/13/18 16:00 107 03/13/18 16:00 92/55 03/13/18 16:00 Mechanical Ventilator 03/13/18 16:00 104 16 98/48 (65) 100 03/13/18 15:30 113 17 94/58 (70) 100 03/13/18 15:30 83/63 03/13/18 15:00 80/68 03/13/18 15:00 113 28 94/54 (67) 100 03/13/18 14:35 125 24 80 03/13/18 14:30 135 33 127/59 (81) 100 03/13/18 14:00 132 33 99/65 (76) 100 03/13/18 14:00 99/65 03/13/18 13:30 130 21 138/64 (88) 100 03/13/18 13:22 77/54 03/13/18 13:00 126 23 148/55 (86) 100 03/13/18 13:00 146/55 03/13/18 12:30 103 20 80 03/13/18 12:30 104 16 83/49 (60) 100 03/13/18 12:30 15.0 80 03/13/18 12:00 102 03/13/18 12:00 Mechanical Ventilator 03/13/18 12:00 15.0 80 03/13/18 12:00 99.1 103 20 77/44 (55) 100 99.1 03/13/18 12:00 67/32 03/13/18 11:31 108 20 64/45 (51) 100 03/13/18 11:00 75/48 03/13/18 11:00 114 20 75/48 (57) 100 03/13/18 10:42 117 20 80 03/13/18 10:30 124 20 133/67 (89) 100 03/13/18 10:00 111 20 132/86 (101) 100 03/13/18 10:00 132/86 03/13/18 09:30 107 20 112/78 (89) 100 03/13/18 09:00 106 20 109/67 (81) 100 03/13/18 09:00 109/67 03/13/18 08:55 125 20 80 03/13/18 08:30 110 20 97/75 (82) 100 03/13/18 08:30 102/69 03/13/18 08:00 Mechanical Ventilator 03/13/18 08:00 115 03/13/18 08:00 98.5 115 20 102/69 (80) 100 98.5 03/13/18 08:00 15.0 80 03/13/18 07:30 125 20 110/68 (82) 100 03/13/18 07:00 130 20 80 03/13/18 07:00 89/71 03/13/18 07:00 122 20 112/74 (87) 100 03/13/18 06:30 98.7 129 20 105/63 (77) 100 98.7 03/13/18 06:00 112/74 03/13/18 06:00 122 20 112/74 (87) 100 03/13/18 05:30 125 20 86/61 (69) 100 03/13/18 05:00 86/56 03/13/18 05:00 118 20 86/56 (66) 100 03/13/18 04:54 119 20 80 03/13/18 04:30 99/77 03/13/18 04:30 110 20 99/77 (84) 100 03/13/18 04:00 102 03/13/18 04:00 98.0 110 15 102/69 (80) 100 98.0 03/13/18 04:00 102/69 03/13/18 04:00 Mechanical Ventilator 03/13/18 04:00 15.0 100 03/13/18 03:30 124 20 100/63 (75) 100 03/13/18 03:26 77/49 03/13/18 03:20 75/57 03/13/18 03:04 115 20 100 03/13/18 03:00 87/60 03/13/18 03:00 113 20 75/57 (63) 100 03/13/18 02:30 114 15 96/69 (78) 100 03/13/18 02:00 116 19 90/56 (67) 100 03/13/18 02:00 88/61 03/13/18 01:30 110 15 90/56 (67) 100 03/13/18 01:30 122 20 100 03/13/18 01:00 112 18 80/56 (64) 100 03/13/18 01:00 91/49 03/13/18 00:30 125 16 95/68 (77) 100 03/13/18 00:00 121 03/13/18 00:00 15.0 100 03/13/18 00:00 95/67 03/13/18 00:00 98.0 124 16 95/68 (77) 100 98.0 03/13/18 00:00 Mechanical Ventilator 03/12/18 23:20 119 20 100 03/12/18 23:00 116 16 100/83 (89) 100 03/12/18 23:00 77/61 03/12/18 22:30 116 20 122/80 (94) 100 03/12/18 22:00 102/75 03/12/18 22:00 115 16 124/82 (96) 100 03/12/18 21:30 115 20 119/76 (90) 100 Micro: Microbiology Date/Time Source Procedure Growth Status 03/12/18 11:35 Urine,Clean Catch Urine Culture - Preliminary Gram Negative Bacillus 1 Resulted 03/12/18 11:00 Rectum VRE Culture Pending Resulted 03/12/18 11:00 Rectum - Preliminary Resulted Accucheck: 121 Critical Care - Subjective ROS Limited/Unobtainable: Yes Condition: critical IV Access: central EKG Rhythm: Sinus Rhythm FI02: 80 Vent Support Breath Rate: 16 Vent Support Mode: AC Vent Tidal Volume: 470 Sputum Amount: Small PEEP: 10.0 PIP: 29 I&O: Intake and Output 03/12/18 03/13/18 19:00 07:00 Intake Total 1470 ml 2064.305 ml Output Total 375 ml 630 ml Balance 1095 ml 1434.305 ml Intake IV Total 1470 ml 2064.305 ml Output Urine Total 375 ml 630 ml # Voids 1 # Bowel Movements 1 ET-Tube: 6.0 ET Position: 22 William Pimentel MD Mar 13, 2018 21:32
--- NOTE | 2018-03-13 22:00 | Consultation ---
DATE OF CONSULTATION: 03/13/2018 NEUROLOGY CONSULTATION CONSULTING PHYSICIAN: Sereg Andre M.D. REQUESTING PHYSICIAN: Esvin Cortez M.D. HISTORY: Ms. Christy Reeves is a 57-year-old, lady, of unknown handedness, who does have past history of respiratory failure, a seizure disorder, and anoxic ischemic brain injury, who lives in a custodial and is fed with a PEG. She was found unresponsive in her custodial and when the paramedics got to her, she was in full arrest. By the time, she could be resuscitated, approximately 20 minutes has passed. The patient has been comatose ever since. This consultation was requested to evaluate the patient from a neurological point of view and to help with prognostication. At this point in time, the patient cannot be aroused and thus, no further history could be obtained. PAST MEDICAL HISTORY: Significant for respiratory failure, seizure disorder, anoxic ischemic brain injury. FAMILY HISTORY: Unavailable. PERSONAL HISTORY: Home: She lives in a custodial. Work: She is unemployed. Habits: Unknown. MEDICATIONS: Potassium phosphate, vancomycin, Zosyn, Vimpat 200 mg q.8 hours, heparin for DVT prophylaxis, famotidine, insulin, norepinephrine, Keppra 1.5 G bid, lorazepam p.r.n., norepinephrine, metronidazole. PHYSICAL EXAMINATION: GENERAL: She is a well-developed, but chronically ill-looking lady, lying in an ICU bed exhibiting bilateral ankle cord contractures. VITAL SIGNS: Pulse 117/minute, blood pressure 107/52 mmHg, respirations 16/minute, temperature 99.3 degrees Fahrenheit. HEAD: Normocephalic and atraumatic. EENT: Examination benign. NECK: No neck rigidity was observed. NEUROLOGICAL EXAMINATION: MENTAL STATUS EXAMINATION: She was comatose and did not respond even to deep pain. Further mental status testing was impossible. SPEECH: Could not be tested. LANGUAGE: Could not be tested. CRANIAL NERVE EXAMINATION: II: She did not blink to threat. III, IV, : External ocular movements were present, but restricted on oculocephalic maneuvers. The right pupil was 2.5 mm and left pupil 3.5 mm, and reactive to light in a sluggish manner. V & VII: The corneal reflexes were absent. VIII: She did not respond to sounds and had no nystagmus. IX & X: The gag reflex was absent on manipulating the endotracheal tube. XI: The sternocleidomastoids and trapezii did not function. XII: Could not be tested adequately. MOTOR SYSTEM: The tone was diminished in all four extremities. Examination of muscle mass revealed generalized muscle wasting and she had bilateral ankle cord contractures. Examination of power was impossible to perform because even on applying deep painful stimuli, no movements were seen. SENSORY EXAMINATION: She did not respond even to deep painful stimuli. REFLEXES: 0 at the biceps, triceps, brachioradialis, knees, and ankles. The plantar responses were mute bilaterally. COORDINATION, STANCE & GAIT: Could not be tested. DIAGNOSTIC IMPRESSION: 1. Ms. Christy Reeves is a 57-year-old, lady, of unknown handedness, who does have past history of respiratory failure and a seizure disorder associated with significant anoxic ischemic brain injury, who lives in a custodial and is fed through a percutaneous gastrostomy. She was found unresponsive in her custodial. When the paramedics got to her, she was in full arrest. By the time she could be resuscitated by the paramedics and then in the hospital, it took approximately 20 minutes to obtain pulse and blood pressure. She has been comatose ever since. 2. On neurological examination, at this time, she is comatose and does not respond even to deep painful stimuli. She does have eye movements on oculocephalic maneuvers and her pupils react sluggishly to light. She does have an anisocoria with the right pupil being 2.5 mm and the left pupil 3.5 mm. She does not demonstrate any other signs of cortical or brainstem function. She is areflexic. 3. Laboratory data obtained thus far revealed that her WBC count was elevated to 25,600. She was anemic with hemoglobin of 11.1 G. Her arterial blood gas when she came to the hospital revealed pH of 7.06, pCO2 of 90, pO2 of 51. Her chemistry panel on admission revealed glucose of 452, AST elevated at 63, ALT elevated at 110, alkaline phosphatase elevated at 205, and a low albumin of 2.0. Her BNP was elevated to 4798. Her urinalysis revealed 3+ leukocyte esterase, 5-10 red blood cells, and 40-60 white blood cells per high-power field. 4. The patient's history, neurological examination, and laboratory data are most compatible with a prior cerebral injury related to respiratory failure and seizures, and then a cardiopulmonary arrest on the day of admission associated with an ongoing infectious process. 5. The prognosis for recovery of brain function is poor because of the underlying pre-existing structural brain disease and superimposed recent anoxic ischemic cerebral insult. RECOMMENDATIONS: 1. Agree with management thus far. 2. Would continue present treatment of the patient's seizures with the present therapeutic regimen. 3. An EEG will be ordered to evaluate the patient for the degree and type of cerebral dysfunction. 4. The patient will be observed closely and depending on how she fares over the next day or so, further recommendations will be given. Thank you for entrusting me with the care of Ms. Reeves. I shall follow her with you. Serge Andre M.D., M.S.P.H. DR: Sulma JOB#: [id number] ALEJANDRA
[2018-03-14] VITALS (69 sets, daily range): BP systolic 85–136; BP diastolic 49–91
[2018-03-14] MEDS: Vancomycin 1gm/D5W 275ml IVPB SCH ×4 (00:19→11:48)
[2018-03-14] MEDS: Lacosamide 100 MG TABLET ORAL SCH ×3 (06:02→22:12)
[2018-03-14] MEDS: Piperacillin/Tazobactam 3.375 GM in NS 110 ML IVPB SCH ×3 (06:02→22:11)
[2018-03-14] MEDS: NovoLOG Insulin Flexpen SUBQ SCH ×4 (06:19→21:04)
[2018-03-14 08:36] LABS: HEMATOCRIT 26.9 % (37.0-47.0); HEMOGLOBIN 8.8 G/DL (12.0-16.0); MEAN CORPUSCULAR VOLUME 90 FL (80-99); PLATELET COUNT 162 K/UL (150-450); RED CELL DISTRIBUTION WIDTH 11.7 % (11.6-14.8); WHITE BLOOD COUNT 17.6 K/UL (4.8-10.8)
[2018-03-14] MEDS: Heparin 5000 units/ml inj SUBQ SCH ×2 (08:49→20:58)
[2018-03-14 09:11] LABS: ALANINE AMINOTRANSFERASE 57 U/L (12-78); ALBUMIN 1.7 G/DL (3.4-5.0); ALBUMIN/GLOBULIN RATIO 0.4 (1.0-2.7); ALKALINE PHOSPHATASE 114 U/L (46-116); ANION GAP 8 mmol/L (5-15); ASPARTATE AMINO TRANSFERASE 42 U/L (15-37); BILIRUBIN,TOTAL 0.3 MG/DL (0.2-1.0); BLOOD UREA NITROGEN 10 mg/dL (7-18); CALCIUM 8.6 MG/DL (8.5-10.1); CARBON DIOXIDE 28 MMOL/L (21-32); CHLORIDE 107 MMOL/L (98-107); CREATININE 0.5 MG/DL (0.55-1.30); POTASSIUM 2.9 MMOL/L (3.5-5.1); SODIUM 142 MMOL/L (136-145)
--- NOTE | 2018-03-14 09:42 | Diagnostic Imaging Report ---
APPROVED REPORT CPT Code: 12034 Present Symptoms Shortness of breath BILATERAL: Imaging reveals a patent deep venous system bilaterally. There is no evidence of thrombus within the femoral, popliteal or tibial segments. The greater saphenous veins are also within normal limits. Doppler indicates normal spontaneous flow within these segments.
--- NOTE | 2018-03-14 11:03 | Infectious Diseases Prog Note ---
Assessment/Plan Assessment/Plan antibiotics : vancomycin iv, zosyn A 1. e.coli UTI 2. pneumonia 3. respiratory failure 4. diabetes mellitus 5. seizures P 1. continue vancomycin iv, zosyn 2. sputum cultures 3. will follow up cultures Subjective ROS Limited/Unobtainable: Yes Allergies: Coded Allergies: No Known Allergies (Unverified , 03/12/18) Objective Vital Signs Last 24 Hour Vital Signs Date Time Temp Pulse Resp B/P (MAP) Pulse Ox O2 Delivery O2 Flow Rate FiO2 03/14/18 10:00 117/64 03/14/18 09:15 106/62 03/14/18 09:00 124/66 03/14/18 09:00 119 18 124/66 (85) 97 03/14/18 08:45 99.1 120 18 127/66 (86) 96 99.1 03/14/18 08:30 118 17 75 03/14/18 08:30 123 19 120/71 (87) 93 03/14/18 08:00 121 29 93/65 (74) 95 03/14/18 08:00 120 03/14/18 08:00 15.0 75 03/14/18 08:00 110/61 03/14/18 08:00 Mechanical Ventilator 03/14/18 07:45 121 22 110/61 (77) 97 03/14/18 07:30 99.9 126 24 110/62 (78) 97 99.9 03/14/18 07:00 111/61 03/14/18 07:00 98.9 113 20 111/61 (78) 97 98.9 03/14/18 06:58 129 19 75 03/14/18 06:30 115 16 104/60 (75) 100 03/14/18 06:00 110 16 110/61 (77) 100 03/14/18 06:00 110/61 03/14/18 05:30 114 16 118/61 (80) 100 03/14/18 05:00 98.8 114 16 111/63 (79) 100 98.8 03/14/18 05:00 111/63 03/14/18 05:00 118 16 75 03/14/18 04:30 107 16 105/60 (75) 100 03/14/18 04:00 Mechanical Ventilator 03/14/18 04:00 101 03/14/18 04:00 136/69 03/14/18 04:00 15.0 75 03/14/18 04:00 116 16 136/69 (91) 100 03/14/18 03:30 115 16 113/64 (80) 100 03/14/18 03:00 105/69 03/14/18 03:00 111 16 105/69 (81) 100 03/14/18 02:50 124 16 75 03/14/18 02:30 104 16 122/67 (85) 100 03/14/18 02:30 122/67 03/14/18 02:00 100 16 116/65 (82) 100 03/14/18 02:00 116/65 03/14/18 01:30 107 16 117/59 (78) 100 03/14/18 01:00 112 16 114/62 (79) 99 03/14/18 01:00 114/62 03/14/18 00:47 125 16 80 03/14/18 00:30 119 17 121/69 (86) 99 03/14/18 00:22 98.9 03/14/18 00:00 Mechanical Ventilator 03/14/18 00:00 126 17 110/57 (74) 98 03/14/18 00:00 15.0 80 03/14/18 00:00 110/57 03/13/18 23:30 117 17 105/55 (72) 98 03/13/18 23:01 108/53 03/13/18 23:00 100.5 03/13/18 23:00 108/60 03/13/18 23:00 118 17 108/60 (76) 98 03/13/18 22:56 136 17 80 03/13/18 22:30 98.8 129 17 108/53 (71) 98 98.8 03/13/18 22:00 115/68 03/13/18 22:00 100.5 118 16 108/59 (75) 98 100.5 03/13/18 21:30 124 16 119/66 (83) 97 03/13/18 21:05 123 16 80 03/13/18 21:00 124 16 121/62 (81) 97 03/13/18 21:00 122/59 03/13/18 20:45 125 16 121/70 (87) 97 03/13/18 20:30 124 16 127/74 (91) 97 03/13/18 20:15 115 16 111/56 (74) 97 03/13/18 20:00 117 9/04/20 20:00 117 16 113/56 (75) 97 18 20:00 Mechanical Ventilator 03/13/18 20:00 113/56 03/13/18 19:45 124 16 118/60 (79) 97 03/13/18 19:30 98.9 129 16 137/56 (83) 97 98.9 03/13/18 19:30 137/56 03/13/18 19:15 100/57 03/13/18 19:15 113 16 100/57 (71) 97 03/13/18 19:00 139 16 119/66 (83) 97 03/13/18 19:00 105/55 03/13/18 19:00 127 17 80 03/13/18 18:30 110 16 97/51 (66) 97 18 18:00 102/52 03/13/18 18:00 116 16 100/52 (68) 97 03/13/18 17:30 112 16 108/59 (75) 98 03/13/18 17:11 117 17 80 03/13/18 17:00 15.0 80 03/13/18 17:00 99.3 108 16 107/52 (70) 100 99.3 03/13/18 17:00 116/63 03/13/18 16:30 127 16 90/60 (70) 100 03/13/18 16:26 15.0 100 03/13/18 16:00 107 03/13/18 16:00 92/55 03/13/18 16:00 Mechanical Ventilator 03/13/18 16:00 104 16 98/48 (65) 100 03/13/18 15:30 113 17 94/58 (70) 100 03/13/18 15:30 83/63 03/13/18 15:00 80/68 03/13/18 15:00 113 28 94/54 (67) 100 03/13/18 14:35 125 24 80 03/13/18 14:30 135 33 127/59 (81) 100 03/13/18 14:00 132 33 99/65 (76) 100 03/13/18 14:00 99/65 03/13/18 13:30 130 21 138/64 (88) 100 03/13/18 13:22 77/54 03/13/18 13:00 126 23 148/55 (86) 100 03/13/18 13:00 146/55 03/13/18 12:30 103 20 80 03/13/18 12:30 104 16 83/49 (60) 100 03/13/18 12:30 15.0 80 03/13/18 12:00 102 03/13/18 12:00 Mechanical Ventilator 03/13/18 12:00 15.0 80 03/13/18 12:00 99.1 103 20 77/44 (55) 100 99.1 03/13/18 12:00 67/32 03/13/18 11:31 108 20 64/45 (51) 100 Height (Feet): 5 Height (Inches): 1.00 Weight (Pounds): 119 HEENT: other - intubated Respiratory/Chest: lungs clear Cardiovascular: normal rate, regular rhythm, no gallop/murmur Abdomen: soft, non tender, other - GT Extremities: other - + edema, right IJ catheter Microbiology Date/Time Source Procedure Growth Status 03/12/18 18:55 Blood Blood Culture - Preliminary NO GROWTH AFTER 24 HOURS Resulted 03/12/18 11:05 Blood Blood Culture - Preliminary NO GROWTH AFTER 24 HOURS Resulted 03/12/18 10:55 Blood Blood Culture - Preliminary NO GROWTH AFTER 24 HOURS Resulted 03/12/18 02:40 Blood Blood Culture - Preliminary NO GROWTH AFTER 24 HOURS Resulted 03/12/18 11:00 Nasal Nares MRSA Culture - Final Staphylococcus Aureus - Mrsa Complete 03/12/18 11:35 Urine,Clean Catch Urine Culture - Final Escherichia Coli - Esbl Complete 03/12/18 11:00 Rectum VRE Culture - Final Enterococcus Faecalis - Vre Complete 03/12/18 11:00 Rectum - Final NO CARBAPENEM-RESISTANT ENTEROBACTERI... Complete Laboratory Tests Test 03/13/18 14:30 03/13/18 16:15 03/14/18 08:00 Arterial Blood pH 7.301 (7.350-7.450) Arterial Blood Partial Pressure CO2 51.5 mmHg (35.0-45.0) H Arterial Blood Partial Pressure O2 68.8 mmHg (75.0-100.0) L Arterial Blood HCO3 24.8 mmol/L (22.0-26.0) Arterial Blood Oxygen Saturation 91.9 % (92.0-98.0) L Arterial Blood Base Excess -2.1 Akira Test Positive Lactic Acid Level 1.40 mmol/L (0.4-2.0) White Blood Count 17.6 K/UL (4.8-10.8) H Red Blood Count 3.00 M/UL (4.20-5.40) L Hemoglobin 8.8 G/DL (12.0-16.0) L Hematocrit 26.9 % (37.0-47.0) L Mean Corpuscular Volume 90 FL (80-99) Mean Corpuscular Hemoglobin 29.5 PG (27.0-31.0) Mean Corpuscular Hemoglobin Concent 32.9 G/DL (32.0-36.0) Red Cell Distribution Width 11.7 % (11.6-14.8) Platelet Count 162 K/UL (150-450) Mean Platelet Volume 7.2 FL (6.5-10.1) Neutrophils (%) (Auto) % (45.0-75.0) Lymphocytes (%) (Auto) % (20.0-45.0) Monocytes (%) (Auto) % (1.0-10.0) Eosinophils (%) (Auto) % (0.0-3.0) Basophils (%) (Auto) % (0.0-2.0) Neutrophils % (Manual) Pending Lymphocytes % (Manual) Pending Platelet Estimate Pending Platelet Morphology Pending Sodium Level 142 MMOL/L (136-145) Potassium Level 2.9 MMOL/L (3.5-5.1) L Chloride Level 107 MMOL/L (98-107) Carbon Dioxide Level 28 MMOL/L (21-32) Anion Gap 8 mmol/L (5-15) Blood Urea Nitrogen 10 mg/dL (7-18) Creatinine 0.5 MG/DL (0.55-1.30) L Estimat Glomerular Filtration Rate > 60 mL/min (>60) Glucose Level 92 MG/DL (74-106) Calcium Level 8.6 MG/DL (8.5-10.1) Total Bilirubin 0.3 MG/DL (0.2-1.0) Aspartate Amino Transf (AST/SGOT) 42 U/L (15-37) H Alanine Aminotransferase (ALT/SGPT) 57 U/L (12-78) Alkaline Phosphatase 114 U/L (46-116) Total Protein 5.8 G/DL (6.4-8.2) L Albumin 1.7 G/DL (3.4-5.0) L Globulin 4.1 g/dL Albumin/Globulin Ratio 0.4 (1.0-2.7) L Current Medications Medications (Trade) Dose Ordered Sig/Emily Route PRN Reason Start Time Stop Time Status Last Admin Dose Admin Acetaminophen (Tylenol) 650 mg Q6H PRN ORAL Mild Pain/Temp > 100.5 03/13/18 22:45 04/12/18 22:44 03/13/18 23:00 Chlorhexidine Gluconate (Radha-Hex 2%) 1 applic DAILY@1999 TOPIC 03/13/18 20:00 04/12/18 19:59 03/13/18 20:07 Dextrose (Dextrose 50%) 25 ml STAT PRN IV Hypoglycemia 03/12/18 20:00 04/11/18 19:59 Dextrose (Dextrose 50%) 50 ml STAT PRN IV Hypoglycemia 03/12/18 20:00 04/11/18 19:59 Famotidine (Pepcid I.v.) 20 mg Q12HR IVP 03/12/18 21:00 04/11/18 20:59 03/14/18 08:35 Heparin Sodium (Porcine) (Heparin 5000 units/ml) 5,000 units EVERY 12 HOURS SUBQ 03/12/18 21:00 04/11/18 20:59 03/14/18 08:49 Insulin Aspart (NovoLOG) BEFORE MEALS AND HS SUBQ 03/12/18 21:00 04/11/18 20:59 03/14/18 06:19 Lacosamide (Vimpat) 200 mg Q8HR ORAL 03/12/18 22:00 04/11/18 21:59 03/14/18 06:02 Levetiracetam (Keppra) 1,500 mg BID GT 03/12/18 20:00 04/11/18 19:59 03/14/18 08:38 Lorazepam (Ativan 2mg/ml 1ml) 2 mg Q2H PRN IV For Seizures 03/12/18 18:00 03/19/18 17:59 Norepinephrine Bitartrate 8 mg/ Dextrose 558 ml @ 0 mls/hr Q24H IV 03/12/18 20:45 04/11/18 20:44 03/13/18 23:01 Piperacillin Sod/ Tazobactam Sod 3.375 gm/Sodium Chloride 110 ml @ 27.5 mls/hr Q8HR IVPB 03/12/18 22:00 03/19/18 21:59 03/14/18 06:02 Sodium Chloride 1,000 ml @ 50 mls/hr Q20H IV 03/14/18 18:00 04/11/18 17:59 03/14/18 05:00 Vancomycin HCl (Vanco rx to dose) 1 ea DAILY PRN MISC Per rx protocol 03/13/18 11:30 04/12/18 11:29 Vancomycin HCl 1 gm/Dextrose 275 ml @ 183.708 mls/hr Q12HR@0000,1200 IVPB 03/13/18 12:30 03/18/18 12:29 03/14/18 00:19 CARLITA FRANKLIN Mar 14, 2018 11:03
--- NOTE | 2018-03-14 11:33 | Critical Care Progress Note ---
Assessment/Plan Assessment/Plan Chronic respiratory failure, now with acute respiratory failure S/p Cardiorespiratory arrest, possible sepsis UTI Chronic muscular weakness H/o seizures severe protein calorie malnutrition PLAN ID noted feeds vent antibiotics monitor cultures support ICU management as is Critical Care - Subjective Interval Events: care noted and reviewed remains in in ICU ROS Limited/Unobtainable: Yes Condition: critical EKG Rhythm: Sinus Rhythm I&O: Intake and Output 03/13/18 03/14/18 19:00 07:00 Intake Total 2661.002 ml 1958.5655 ml Output Total 850 ml 715 ml Balance 1811.002 ml 1243.5655 ml IV Total 2511.002 ml 1898.5655 ml Other 150 ml 60 ml Output Urine Total 850 ml 715 ml Critical Care - Objective ET-Tube: 6.0 ET Position: 22 Last 24 Hour Vital Signs Date Time Temp Pulse Resp B/P (MAP) Pulse Ox O2 Delivery O2 Flow Rate FiO2 03/14/18 11:00 116 16 75 03/14/18 10:00 117/64 03/14/18 09:15 106/62 03/14/18 09:00 124/66 03/14/18 09:00 119 18 124/66 (85) 97 03/14/18 08:45 99.1 120 18 127/66 (86) 96 99.1 03/14/18 08:30 118 17 75 03/14/18 08:30 123 19 120/71 (87) 93 03/14/18 08:00 121 29 93/65 (74) 95 03/14/18 08:00 120 03/14/18 08:00 15.0 75 03/14/18 08:00 110/61 03/14/18 08:00 Mechanical Ventilator 03/14/18 07:45 121 22 110/61 (77) 97 03/14/18 07:30 99.9 126 24 110/62 (78) 97 99.9 03/14/18 07:00 111/61 03/14/18 07:00 98.9 113 20 111/61 (78) 97 98.9 03/14/18 06:58 129 19 75 03/14/18 06:30 115 16 104/60 (75) 100 03/14/18 06:00 110 16 110/61 (77) 100 03/14/18 06:00 110/61 03/14/18 05:30 114 16 118/61 (80) 100 03/14/18 05:00 98.8 114 16 111/63 (79) 100 98.8 03/14/18 05:00 111/63 03/14/18 05:00 118 16 75 03/14/18 04:30 107 16 105/60 (75) 100 03/14/18 04:00 Mechanical Ventilator 03/14/18 04:00 101 03/14/18 04:00 136/69 03/14/18 04:00 15.0 75 03/14/18 04:00 116 16 136/69 (91) 100 03/14/18 03:30 115 16 113/64 (80) 100 03/14/18 03:00 105/69 03/14/18 03:00 111 16 105/69 (81) 100 03/14/18 02:50 124 16 75 03/14/18 02:30 104 16 122/67 (85) 100 03/14/18 02:30 122/67 03/14/18 02:00 100 16 116/65 (82) 100 03/14/18 02:00 116/65 03/14/18 01:30 107 16 117/59 (78) 100 03/14/18 01:00 112 16 114/62 (79) 99 03/14/18 01:00 114/62 03/14/18 00:47 125 16 80 03/14/18 00:30 119 17 121/69 (86) 99 03/14/18 00:22 98.9 03/14/18 00:00 Mechanical Ventilator 03/14/18 00:00 126 17 110/57 (74) 98 03/14/18 00:00 15.0 80 03/14/18 00:00 110/57 03/13/18 23:30 117 17 105/55 (72) 98 03/13/18 23:01 108/53 03/13/18 23:00 100.5 03/13/18 23:00 108/60 03/13/18 23:00 118 17 108/60 (76) 98 03/13/18 22:56 136 17 80 03/13/18 22:30 98.8 129 17 108/53 (71) 98 98.8 03/13/18 22:00 115/68 03/13/18 22:00 100.5 118 16 108/59 (75) 98 100.5 03/13/18 21:30 124 16 119/66 (83) 97 03/13/18 21:05 123 16 80 03/13/18 21:00 124 16 121/62 (81) 97 18 21:00 122/59 03/13/18 20:45 125 16 121/70 (87) 97 03/13/18 20:30 124 16 127/74 (91) 97 03/13/18 20:15 115 16 111/56 (74) 97 03/13/18 20:00 117 03/13/18 20:00 117 16 113/56 (75) 97 03/13/18 20:00 Mechanical Ventilator 03/13/18 20:00 113/56 03/13/18 19:45 124 16 118/60 (79) 97 03/13/18 19:30 98.9 129 16 137/56 (83) 97 98.9 03/13/18 19:30 137/56 03/13/18 19:15 100/57 03/13/18 19:15 113 16 100/57 (71) 97 03/13/18 19:00 139 16 119/66 (83) 97 03/13/18 19:00 105/55 03/13/18 19:00 127 17 80 03/13/18 18:30 110 16 97/51 (66) 97 03/13/18 18:00 102/52 03/13/18 18:00 116 16 100/52 (68) 97 03/13/18 17:30 112 16 108/59 (75) 98 03/13/18 17:11 117 17 80 03/13/18 17:00 15.0 80 03/13/18 17:00 99.3 108 16 107/52 (70) 100 99.3 03/13/18 17:00 116/63 03/13/18 16:30 127 16 90/60 (70) 100 03/13/18 16:26 15.0 100 03/13/18 16:00 107 03/13/18 16:00 92/55 03/13/18 16:00 Mechanical Ventilator 03/13/18 16:00 104 16 98/48 (65) 100 03/13/18 15:30 113 17 94/58 (70) 100 03/13/18 15:30 83/63 03/13/18 15:00 80/68 03/13/18 15:00 113 28 94/54 (67) 100 03/13/18 14:35 125 24 80 03/13/18 14:30 135 33 127/59 (81) 100 03/13/18 14:00 132 33 99/65 (76) 100 03/13/18 14:00 99/65 03/13/18 13:30 130 21 138/64 (88) 100 03/13/18 13:22 77/54 03/13/18 13:00 126 23 148/55 (86) 100 03/13/18 13:00 146/55 03/13/18 12:30 103 20 80 03/13/18 12:30 104 16 83/49 (60) 100 03/13/18 12:30 15.0 80 03/13/18 12:00 102 03/13/18 12:00 Mechanical Ventilator 03/13/18 12:00 15.0 80 03/13/18 12:00 99.1 103 20 77/44 (55) 100 99.1 03/13/18 12:00 67/32 03/13/18 11:31 108 20 64/45 (51) 100 Objective: WDWN intubated coars breath sounds bilaterally without rhonchi or wheeze [id number] without MRG NABS nontender no HSM; GT no CCE nonfocal and withdrawn Micro: Microbiology Date/Time Source Procedure Growth Status 03/12/18 18:55 Blood Blood Culture - Preliminary NO GROWTH AFTER 24 HOURS Resulted 03/12/18 11:05 Blood Blood Culture - Preliminary NO GROWTH AFTER 24 HOURS Resulted 03/12/18 10:55 Blood Blood Culture - Preliminary NO GROWTH AFTER 24 HOURS Resulted 03/12/18 02:40 Blood Blood Culture - Preliminary NO GROWTH AFTER 24 HOURS Resulted 03/12/18 11:00 Nasal Nares MRSA Culture - Final Staphylococcus Aureus - Mrsa Complete 03/12/18 11:35 Urine,Clean Catch Urine Culture - Final Escherichia Coli - Esbl Complete 03/12/18 11:00 Rectum VRE Culture - Final Enterococcus Faecalis - Vre Complete 03/12/18 11:00 Rectum - Final NO CARBAPENEM-RESISTANT ENTEROBACTERI... Complete Accucheck: 175 Esvin Cortez MD Mar 14, 2018 11:33
[2018-03-14] MEDS: Norepinephrine Bitartrate 8 MG in D5W 500ml 550 ML IV SCH (13:21)
--- NOTE | 2018-03-14 20:17 | Neurology Progress Note ---
Interim History Interim History Interim History Ms. Reeves continues to be comatose. She has exhibited no improvement in her neurologic function. She is hemodynamically stable. She has exhibited no seizures or seizure-like phenomena. She is still intubated and artificially ventilated. Review of Systems Neuro Review of Systems Unable to obtain. Objective Physical Exam Last Vital Signs Date Time Temp Pulse Resp B/P (MAP) Pulse Ox O2 Delivery O2 Flow Rate FiO2 03/14/18 18:30 102 16 118/66 (83) 100 03/14/18 17:00 99.8 99.8 03/14/18 17:00 70 03/14/18 16:00 15.0 03/14/18 16:00 Mechanical Ventilator Laboratory Tests Test 03/14/18 08:00 White Blood Count 17.6 K/UL (4.8-10.8) H Red Blood Count 3.00 M/UL (4.20-5.40) L Hemoglobin 8.8 G/DL (12.0-16.0) L Hematocrit 26.9 % (37.0-47.0) L Mean Corpuscular Volume 90 FL (80-99) Mean Corpuscular Hemoglobin 29.5 PG (27.0-31.0) Mean Corpuscular Hemoglobin Concent 32.9 G/DL (32.0-36.0) Red Cell Distribution Width 11.7 % (11.6-14.8) Platelet Count 162 K/UL (150-450) Mean Platelet Volume 7.2 FL (6.5-10.1) Neutrophils (%) (Auto) % (45.0-75.0) Lymphocytes (%) (Auto) % (20.0-45.0) Monocytes (%) (Auto) % (1.0-10.0) Eosinophils (%) (Auto) % (0.0-3.0) Basophils (%) (Auto) % (0.0-2.0) Differential Total Cells Counted 100 Neutrophils % (Manual) 91 % (45-75) H Lymphocytes % (Manual) 5 % (20-45) L Monocytes % (Manual) 1 % (1-10) Eosinophils % (Manual) 0 % (0-3) Basophils % (Manual) 0 % (0-2) Band Neutrophils 3 % (0-8) Platelet Estimate Adequate Platelet Morphology Normal Red Blood Cell Morphology Normal Sodium Level 142 MMOL/L (136-145) Potassium Level 2.9 MMOL/L (3.5-5.1) L Chloride Level 107 MMOL/L (98-107) Carbon Dioxide Level 28 MMOL/L (21-32) Anion Gap 8 mmol/L (5-15) Blood Urea Nitrogen 10 mg/dL (7-18) Creatinine 0.5 MG/DL (0.55-1.30) L Estimat Glomerular Filtration Rate > 60 mL/min (>60) Glucose Level 92 MG/DL (74-106) Calcium Level 8.6 MG/DL (8.5-10.1) Total Bilirubin 0.3 MG/DL (0.2-1.0) Aspartate Amino Transf (AST/SGOT) 42 U/L (15-37) H Alanine Aminotransferase (ALT/SGPT) 57 U/L (12-78) Alkaline Phosphatase 114 U/L (46-116) Total Protein 5.8 G/DL (6.4-8.2) L Albumin 1.7 G/DL (3.4-5.0) L Globulin 4.1 g/dL Albumin/Globulin Ratio 0.4 (1.0-2.7) L Neurologic Exam Objective PHYSICAL EXAMINATION: GENERAL: She is a well-developed, but chronically ill-looking lady, lying in an ICU bed exhibiting bilateral ankle cord contractures. HEAD: Normocephalic and atraumatic. EENT: Examination benign. NECK: No neck rigidity was observed. NEUROLOGICAL EXAMINATION: MENTAL STATUS EXAMINATION: She was comatose and did not respond even to deep pain. Further mental status testing was impossible. SPEECH: Could not be tested. LANGUAGE: Could not be tested. CRANIAL NERVE EXAMINATION: II: She did not blink to threat. III, IV, : External ocular movements were present, but restricted on oculocephalic maneuvers. The right pupil was 2.5 mm and left pupil 3.5 mm, and reactive to light in a sluggish manner. V & VII: The corneal reflexes were absent. VIII: She did not respond to sounds and had no nystagmus. IX & X: The gag reflex was absent on manipulating the endotracheal tube. XI: The sternocleidomastoids and trapezii did not function. XII: Could not be tested adequately. MOTOR SYSTEM: The tone was diminished in all four extremities. Examination of muscle mass revealed generalized muscle wasting and she had bilateral ankle cord contractures. Examination of power was impossible to perform because even on applying deep painful stimuli, no movements were seen. SENSORY EXAMINATION: She did not respond even to deep painful stimuli. REFLEXES: 0 at the biceps, triceps, brachioradialis, knees, and ankles. The plantar responses were mute bilaterally. COORDINATION, STANCE & GAIT: Could not be tested. Impression/Recommendations Diagnostic Impression 1. Ms. 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 She was found unresponsive in her care home. When the paramedics got to her, she was in full arrest. By the time she could be resuscitated by the paramedics and then in the hospital, it took approximately 20 minutes to obtain pulse and blood pressure. She has been comatose ever since. 2. She continues to be comatose. She has exhibited no improvement in her neurologic function. She is hemodynamically stable. She has exhibited no seizures or seizure-like phenomena. She is still intubated and artificially ventilated. 3. On neurological examination, at this time, she is comatose and does not respond even to deep painful stimuli. She does have eye movements on oculocephalic maneuvers and her pupils react sluggishly to light. She does have an anisocoria with the right pupil being 2.5 mm and the left pupil 3.5 mm. She does not demonstrate any other signs of cortical or brainstem function. She is areflexic. 4. Laboratory data on my initial evaluation revealed that her WBC count was elevated to 25,600. She was anemic with hemoglobin of 11.1 G. Her arterial blood gas when she came to the hospital revealed pH of 7.06, pCO2 of 90, pO2 of 51. Her chemistry panel on admission revealed glucose of 452, AST elevated at 63, ALT elevated at 110, alkaline phosphatase elevated at 205, and a low albumin of 2.0. Her BNP was elevated to 4798. Her urinalysis revealed 3+ leukocyte esterase, 5-10 red blood cells, and 40-60 white blood cells per high-power field. 5. The EEG done on 03/13/18 revealed a burst suppression pattern which is indicative of severe anoxic/ischemic brain damage. 6. The patient's history, neurological examination, EEG, and laboratory data are most compatible with a prior cerebral injury related to respiratory failure and seizures, and then a cardiopulmonary arrest on the day of admission associated with an ongoing infectious process. 7. The prognosis for recovery of brain function is poor because of the underlying pre-existing structural brain disease and superimposed recent anoxic ischemic cerebral insult. Recommendations 1. Continue present management. 2. Continue treatment of the patient's seizures with the present therapeutic regimen. 3. When possible image brain. 4. Observed closely in ICU. Hayde Andre M.D., M.S.P.H. HAYDE ANDRE Mar 14, 2018 20:17
[2018-03-14] MEDS: Dyna-Hex 2% Top Sol 2oz TOPIC SCH (20:53)
--- NOTE | 2018-03-14 21:00 | Electroencephalogram ---
DATE OF PROCEDURE: 03/13/2018 REQUESTING PHYSICIAN: Esvin Cortez M.D. READING PHYSICIAN: Serge Andre M.D. HISTORY: This EEG was performed on a 57-year-old lady with a history of prior respiratory failure and a seizure disorder who was hospitalized after she was found in full arrest and had to have cardiopulmonary resuscitation for more than 20 minutes. The patient has been comatose since then. The purpose of this EEG was to evaluate the patient for the degree and type of cerebral dysfunction to help with prognostication. TECHNICAL NOTE: This EEG was performed on [employer] [facility] with electrodes placed on the scalp according to the International 10-20 system. [id number] and [id number] montages were used. The EEG was technically satisfactory and was performed while the patient was in an unresponsive state. OBSERVATIONS: In the unresponsive state, the background activity consisted of a burst suppression pattern. Bursts of electrical activity in the theta and delta range lasting for 1 to 5 seconds followed by periods of suppression lasting 1 to 5 seconds were seen throughout the tracing. When external stimulation was applied to the patient, no significant change in the EEG background was noted. IMPRESSION: This is an abnormal EEG characterized by a burst suppression pattern, with bursts of electrical activity lasting 1 to 5 seconds, followed by periods of suppression lasting 1 to 5 seconds. In addition no reactivity to external stimulation was seen. COMMENT: The study is consistent with a severe encephalopathy, most probably of an anoxic ischemic nature in this case. Serge Andre M.D., M.S.P.H. DR: LYNDSEY JOB#: [id number] MTDD
--- NOTE | 2018-03-14 21:30 | Cardiology Report ---
APPROVED REPORT EKG Measurement Heart [id number] Normal sinus rhythm Possible Left atrial enlargement Borderline ECG
[2018-03-15] VITALS (44 sets, daily range): BP systolic 87–133; BP diastolic 48–79
[2018-03-15] MEDS: Vancomycin 1250mg/D5W 250ml 250 ML IVPB SCH ×2 (00:30→12:44)
[2018-03-15] MEDS: Piperacillin/Tazobactam 3.375 GM in NS 110 ML IVPB SCH ×3 (06:10→21:59)
[2018-03-15] MEDS: NovoLOG Insulin Flexpen SUBQ SCH ×4 (06:14→20:36)
[2018-03-15] MEDS: Lacosamide 100 MG TABLET ORAL SCH ×3 (06:20→21:59)
[2018-03-15 06:34] LABS: HEMATOCRIT 27.8 % (37.0-47.0); HEMOGLOBIN 9.1 G/DL (12.0-16.0); MEAN CORPUSCULAR VOLUME 92 FL (80-99); PLATELET COUNT 190 K/UL (150-450); RED BLOOD COUNT 3.04 M/UL (4.20-5.40); RED CELL DISTRIBUTION WIDTH 11.7 % (11.6-14.8); WHITE BLOOD COUNT 18.9 K/UL (4.8-10.8)
[2018-03-15 06:44] LABS: ANION GAP 8 mmol/L (5-15); BLOOD UREA NITROGEN 10 mg/dL (7-18); CALCIUM 8.8 MG/DL (8.5-10.1); CARBON DIOXIDE 27 MMOL/L (21-32); CHLORIDE 108 MMOL/L (98-107); CREATININE 0.5 MG/DL (0.55-1.30); POTASSIUM 2.8 MMOL/L (3.5-5.1); SODIUM 143 MMOL/L (136-145)
--- NOTE | 2018-03-15 08:51 | Critical Care Progress Note ---
Assessment/Plan Assessment/Plan Chronic respiratory failure, now with acute respiratory failure S/p Cardiorespiratory arrest, possible sepsis UTI Chronic muscular weakness H/o seizures severe protein calorie malnutrition PLAN replace K ID noted feeds vent antibiotics monitor cultures support update family ICU management as is Critical Care - Subjective ROS Limited/Unobtainable: Yes Condition: critical EKG Rhythm: Sinus Rhythm Residuals: minimal Tube Feeding Tolerated: yes I&O: Intake and Output 03/14/18 03/15/18 19:00 07:00 Intake Total 1727.746 ml 1484.36 ml Output Total 650 ml 730 ml Balance 1077.746 ml 754.36 ml Intake Free Water 90 ml 100 ml IV Total 1467.746 ml 894.36 ml Tube Feeding 170 ml 490 ml Output Urine Total 650 ml 730 ml Critical Care - Objective ET-Tube: 6.0 ET Position: 22 Last 24 Hour Vital Signs Date Time Temp Pulse Resp B/P (MAP) Pulse Ox O2 Delivery O2 Flow Rate FiO2 03/15/18 08:00 Mechanical Ventilator 03/15/18 08:00 15.0 55 03/15/18 07:11 116 17 55 03/15/18 06:30 114 16 113/58 (76) 100 03/15/18 06:00 113/57 03/15/18 06:00 112 16 112/58 (76) 100 03/15/18 05:30 111 16 123/56 (78) 100 03/15/18 05:15 105 16 55 03/15/18 05:00 119/63 03/15/18 05:00 110 16 110/56 (74) 100 03/15/18 04:30 105 16 104/52 (69) 100 03/15/18 04:00 Mechanical Ventilator 03/15/18 04:00 98.6 108 16 110/57 (74) 100 98.6 03/15/18 04:00 110/57 03/15/18 04:00 103 03/15/18 03:30 110 16 108/56 (73) 100 03/15/18 03:18 107 16 55 03/15/18 03:00 115 16 117/61 (79) 100 03/15/18 03:00 117/61 03/15/18 02:30 118 16 118/61 (80) 100 03/15/18 02:07 15.0 55 03/15/18 02:00 115 16 133/65 (87) 100 03/15/18 02:00 132/67 03/15/18 01:30 107 16 126/66 (86) 100 03/15/18 01:00 110 16 55 03/15/18 01:00 111 16 121/55 (77) 100 03/15/18 01:00 124/63 03/15/18 00:30 112 16 124/57 (79) 100 03/15/18 00:00 15.0 65 03/15/18 00:00 121 03/15/18 00:00 99.5 121 16 131/71 (91) 100 99.5 03/15/18 00:00 Mechanical Ventilator 03/15/18 00:00 131/71 03/14/18 23:30 122 16 124/71 (88) 100 03/14/18 23:05 120 16 60 03/14/18 23:00 126 16 120/91 (101) 100 03/14/18 23:00 91/33 03/14/18 23:00 15.0 60 03/14/18 22:30 104 16 108/57 (74) 100 03/14/18 22:00 109 16 118/63 (81) 100 03/14/18 22:00 118/63 03/14/18 21:30 116 17 120/57 (78) 100 03/14/18 21:00 119 16 65 03/14/18 21:00 122/61 03/14/18 21:00 122 16 120/55 (76) 100 03/14/18 20:30 118 16 128/61 (83) 100 03/14/18 20:00 120 03/14/18 20:00 112/63 03/14/18 20:00 Mechanical Ventilator 03/14/18 20:00 15.0 65 03/14/18 20:00 99.5 120 16 112/63 (79) 100 99.5 03/14/18 19:30 119 16 133/64 (87) 100 03/14/18 19:00 118 17 132/71 (91) 100 03/14/18 19:00 132/71 03/14/18 18:45 115 16 70 03/14/18 18:30 102 16 118/66 (83) 100 03/14/18 18:21 118/66 03/14/18 18:15 107 16 118/66 (83) 98 03/14/18 18:00 115 18 124/63 (83) 97 03/14/18 17:45 125 19 117/71 (86) 98 03/14/18 17:30 113 23 117/57 (77) 97 03/14/18 17:21 117/57 03/14/18 17:15 115 17 123/63 (83) 97 03/14/18 17:00 99.8 116 25 123/64 (83) 97 99.8 03/14/18 17:00 121 16 70 03/14/18 16:45 114 18 125/63 (83) 97 03/14/18 16:30 116 18 120/62 (81) 98 03/14/18 16:21 120/62 03/14/18 16:15 105 16 109/52 (71) 98 03/14/18 16:00 15.0 70 03/14/18 16:00 118 03/14/18 16:00 107 16 110/58 (75) 98 03/14/18 16:00 Mechanical Ventilator 03/14/18 15:45 117 17 119/57 (77) 96 03/14/18 15:30 110 16 100/49 (66) 97 03/14/18 15:21 109/57 03/14/18 15:20 111 16 70 03/14/18 15:15 99.8 112 16 100/51 (67) 96 99.8 03/14/18 15:00 118 17 109/56 (73) 95 03/14/18 14:45 120 17 114/59 (77) 95 03/14/18 14:30 105 16 85/49 (61) 97 03/14/18 14:21 85/49 03/14/18 14:15 109 16 100/50 (67) 97 03/14/18 14:00 115 16 116/56 (76) 96 03/14/18 13:50 100.2 03/14/18 13:45 100.2 114 16 113/57 (75) 97 100.2 03/14/18 13:30 115 16 109/57 (74) 98 03/14/18 13:21 112/59 03/14/18 13:20 115 16 70 03/14/18 13:20 100.8 03/14/18 13:15 118 17 113/59 (77) 98 03/14/18 13:00 109 16 99/50 (66) 100 03/14/18 12:45 100.8 109 16 104/50 (68) 100 100.8 03/14/18 12:30 109 16 104/52 (69) 100 03/14/18 12:15 113 16 107/52 (70) 100 03/14/18 12:00 118 16 105/51 (69) 98 03/14/18 12:00 Mechanical Ventilator 03/14/18 12:00 112 03/14/18 12:00 105/53 03/14/18 12:00 15.0 75 03/14/18 11:45 110 16 102/55 (71) 100 03/14/18 11:30 113 16 102/55 (71) 99 03/14/18 11:15 100.1 120 16 105/63 (77) 99 100.1 03/14/18 11:00 116 16 75 03/14/18 11:00 96/54 03/14/18 11:00 113 17 96/54 (68) 99 03/14/18 10:45 116 16 96/57 (70) 98 03/14/18 10:30 115 16 103/55 (71) 98 03/14/18 10:15 100.2 120 16 105/63 (77) 99 100.2 03/14/18 10:00 117/64 03/14/18 10:00 120 16 117/64 (81) 99 03/14/18 09:45 120 18 119/73 (88) 98 03/14/18 09:30 117 18 116/64 (81) 99 03/14/18 09:15 118 17 111/59 (76) 98 03/14/18 09:15 106/62 03/14/18 09:00 124/66 03/14/18 09:00 119 18 124/66 (85) 97 Labs: Laboratory Tests Test 03/14/18 23:24 03/15/18 05:30 Vancomycin Level Trough 11.6 ug/mL (5.0-12.0) White Blood Count 18.9 K/UL (4.8-10.8) H Red Blood Count 3.04 M/UL (4.20-5.40) L Hemoglobin 9.1 G/DL (12.0-16.0) L Hematocrit 27.8 % (37.0-47.0) L Mean Corpuscular Volume 92 FL (80-99) Mean Corpuscular Hemoglobin 30.1 PG (27.0-31.0) Mean Corpuscular Hemoglobin Concent 32.8 G/DL (32.0-36.0) Red Cell Distribution Width 11.7 % (11.6-14.8) Platelet Count 190 K/UL (150-450) Mean Platelet Volume 7.6 FL (6.5-10.1) Neutrophils (%) (Auto) % (45.0-75.0) Lymphocytes (%) (Auto) % (20.0-45.0) Monocytes (%) (Auto) % (1.0-10.0) Eosinophils (%) (Auto) % (0.0-3.0) Basophils (%) (Auto) % (0.0-2.0) Neutrophils % (Manual) Pending Lymphocytes % (Manual) Pending Platelet Estimate Pending Platelet Morphology Pending Sodium Level 143 MMOL/L (136-145) Potassium Level 2.8 MMOL/L (3.5-5.1) L Chloride Level 108 MMOL/L (98-107) H Carbon Dioxide Level 27 MMOL/L (21-32) Anion Gap 8 mmol/L (5-15) Blood Urea Nitrogen 10 mg/dL (7-18) Creatinine 0.5 MG/DL (0.55-1.30) L Estimat Glomerular Filtration Rate > 60 mL/min (>60) Glucose Level 93 MG/DL (74-106) Calcium Level 8.8 MG/DL (8.5-10.1) Objective: WDWN intubated coars breath sounds bilaterally without rhonchi or wheeze [id number] without MRG NABS nontender no HSM; GT no CCE nonfocal and withdrawn Micro: Microbiology Date/Time Source Procedure Growth Status 03/12/18 18:55 Blood Blood Culture - Preliminary NO GROWTH AFTER 48 HOURS Resulted 03/12/18 11:05 Blood Blood Culture - Preliminary NO GROWTH AFTER 48 HOURS Resulted 03/12/18 10:55 Blood Blood Culture - Preliminary NO GROWTH AFTER 48 HOURS Resulted 03/12/18 11:00 Nasal Nares MRSA Culture - Final Staphylococcus Aureus - Mrsa Complete 03/12/18 11:35 Urine,Clean Catch Urine Culture - Final Escherichia Coli - Esbl Complete 03/12/18 11:00 Rectum VRE Culture - Final Enterococcus Faecalis - Vre Complete 03/12/18 11:00 Rectum - Final NO CARBAPENEM-RESISTANT ENTEROBACTERI... Complete Accucheck: 180 Esvin Cortez MD Mar 15, 2018 08:51
[2018-03-15] MEDS: Heparin 5000 units/ml inj SUBQ SCH ×2 (09:07→20:35)
[2018-03-15] MEDS: Norepinephrine Bitartrate 8 MG in D5W 500ml 550 ML IV SCH (09:41)
--- NOTE | 2018-03-15 09:43 | Diagnostic Imaging Report ---
Indication: Shortness of breath Technique: One view of the chest Comparison: 03/13/2018 Findings: Stable satisfactory position of endotracheal tube. Infiltrates in the right upper lobe appears slightly less dense, but there is slightly increased hazy opacity in right mid and lower lung. Retrocardiac consolidation persists. Right jugular central venous catheter is again demonstrated Impression: Shifting right lung infiltrates, less severe in the upper lobe but increasing in the lower lobe. Other stable findings as described
--- NOTE | 2018-03-15 19:43 | Neurology Progress Note ---
Interim History Interim History Interim History Ms. Reeves continues to be comatose. She has exhibited no improvement in her neurologic function. She is hemodynamically stable. She has exhibited no seizures or seizure-like phenomena. She is still intubated and artificially ventilated. She has not regained consciousness > 72 hours post her anoxic/ischemic event. Review of Systems Neuro Review of Systems Unable to obtain. Objective Physical Exam Last Vital Signs Date Time Temp Pulse Resp B/P (MAP) Pulse Ox O2 Delivery O2 Flow Rate FiO2 03/15/18 19:27 104 17 60 03/15/18 18:00 113/65 (81) 100 03/15/18 16:00 99.3 99.3 03/15/18 16:00 Mechanical Ventilator 03/15/18 08:00 15.0 Laboratory Tests Test 03/14/18 23:24 03/15/18 05:30 03/15/18 08:55 Vancomycin Level Trough 11.6 ug/mL (5.0-12.0) White Blood Count 18.9 K/UL (4.8-10.8) H Red Blood Count 3.04 M/UL (4.20-5.40) L Hemoglobin 9.1 G/DL (12.0-16.0) L Hematocrit 27.8 % (37.0-47.0) L Mean Corpuscular Volume 92 FL (80-99) Mean Corpuscular Hemoglobin 30.1 PG (27.0-31.0) Mean Corpuscular Hemoglobin Concent 32.8 G/DL (32.0-36.0) Red Cell Distribution Width 11.7 % (11.6-14.8) Platelet Count 190 K/UL (150-450) Mean Platelet Volume 7.6 FL (6.5-10.1) Neutrophils (%) (Auto) % (45.0-75.0) Lymphocytes (%) (Auto) % (20.0-45.0) Monocytes (%) (Auto) % (1.0-10.0) Eosinophils (%) (Auto) % (0.0-3.0) Basophils (%) (Auto) % (0.0-2.0) Differential Total Cells Counted 100 Neutrophils % (Manual) 96 % (45-75) H Lymphocytes % (Manual) 3 % (20-45) L Monocytes % (Manual) 1 % (1-10) Eosinophils % (Manual) 0 % (0-3) Basophils % (Manual) 0 % (0-2) Band Neutrophils 0 % (0-8) Platelet Estimate Adequate Platelet Morphology Normal Hypochromasia 2+ Anisocytosis 1+ Spherocytes 1+ Sodium Level 143 MMOL/L (136-145) Potassium Level 2.8 MMOL/L (3.5-5.1) L Chloride Level 108 MMOL/L (98-107) H Carbon Dioxide Level 27 MMOL/L (21-32) Anion Gap 8 mmol/L (5-15) Blood Urea Nitrogen 10 mg/dL (7-18) Creatinine 0.5 MG/DL (0.55-1.30) L Estimat Glomerular Filtration Rate > 60 mL/min (>60) Glucose Level 93 MG/DL (74-106) Calcium Level 8.8 MG/DL (8.5-10.1) Arterial Blood pH 7.338 (7.350-7.450) Arterial Blood Partial Pressure CO2 46.3 mmHg (35.0-45.0) H Arterial Blood Partial Pressure O2 73.2 mmHg (75.0-100.0) L Arterial Blood HCO3 24.3 mmol/L (22.0-26.0) Arterial Blood Oxygen Saturation 93.6 % (92.0-98.0) Arterial Blood Base Excess -1.7 Akira Test Positive Neurologic Exam Objective PHYSICAL EXAMINATION: GENERAL: She is a well-developed, but chronically ill-looking lady, lying in an ICU bed exhibiting bilateral ankle cord contractures. HEAD: Normocephalic and atraumatic. EENT: Examination benign. NECK: No neck rigidity was observed. NEUROLOGICAL EXAMINATION: MENTAL STATUS EXAMINATION: She was comatose and only responded to deep pain with decerebration in the upper extremities and no response in the lower extremities. Further mental status testing was impossible. SPEECH: Could not be tested. LANGUAGE: Could not be tested. CRANIAL NERVE EXAMINATION: II: She did not blink to threat. III, IV, : External ocular movements were present, but restricted on oculocephalic maneuvers. The right pupil was 2.5 mm and left pupil 3.5 mm, and reactive to light in a sluggish manner. V & VII: The corneal reflexes were absent. VIII: She did not respond to sounds and had no nystagmus. IX & X: The gag reflex was absent on manipulating the endotracheal tube. XI: The sternocleidomastoids and trapezii did not function. XII: Could not be tested adequately. MOTOR SYSTEM: The tone was diminished in all four extremities. Examination of muscle mass revealed generalized muscle wasting and she had bilateral ankle cord contractures. Examination of power was impossible to perform because even on applying deep painful stimuli, no purposeful movements were seen. SENSORY EXAMINATION: She did not respond even to deep painful stimuli other than decerebration in the upper extremities. REFLEXES: 0 at the biceps, triceps, brachioradialis, knees, and ankles. The plantar responses were mute bilaterally. COORDINATION, STANCE & GAIT: Could not be tested. Impression/Recommendations Diagnostic Impression 1. Ms. 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 She was found unresponsive in her penitentiary. When the paramedics got to her, she was in full arrest. By the time she could be resuscitated by the paramedics and then in the hospital, it took approximately 20 minutes to obtain pulse and blood pressure. She has been comatose ever since. 2. She continues to be comatose. She has exhibited no improvement in her neurologic function. She is hemodynamically stable. She has exhibited no seizures or seizure-like phenomena. She is still intubated and artificially ventilated. 3. On neurological examination, at this time, she is comatose and does not respond even to deep painful stimuli other than decerebration in the upper extremities. She does have eye movements on oculocephalic maneuvers and her pupils react sluggishly to light. She does have an anisocoria with the right pupil being 2.5 mm and the left pupil 3.5 mm. She does not demonstrate any other signs of cortical or brainstem function. She is areflexic. 4. Laboratory data on my initial evaluation revealed that her WBC count was elevated to 25,600. She was anemic with hemoglobin of 11.1 G. Her arterial blood gas when she came to the hospital revealed pH of 7.06, pCO2 of 90, pO2 of 51. Her chemistry panel on admission revealed glucose of 452, AST elevated at 63, ALT elevated at 110, alkaline phosphatase elevated at 205, and a low albumin of 2.0. Her B[place] 4798. Her urinalysis revealed 3+ leukocyte esterase, 5-10 red blood cells, and 40-60 white blood cells per high-power field. 5. The EEG done on 03/13/18 revealed a burst suppression pattern which is indicative of severe anoxic/ischemic brain damage. 6. The patient's history, neurological examination, EEG, and laboratory data are most compatible with a prior cerebral injury related to respiratory failure and seizures, and then a cardiopulmonary arrest on the day of admission associated with an ongoing infectious process. 7. The prognosis for recovery of brain function is dismal because of the underlying pre-existing structural brain disease, the superimposed recent anoxic ischemic cerebral insult, and her not regaining consciousness > 72 hours following the anoxic/ischemic event. Recommendations 1. Continue present management. 2. Continue treatment of the patient's seizures with the present therapeutic regimen. 3. When possible image brain. 4. In light of her poor prognosis re-consider how intensive her care should be. Hayde Andre M.D., M.S.P.[place]. HAYDE ANDRE Mar 15, 2018 19:43
[2018-03-15] MEDS: Dyna-Hex 2% Top Sol 2oz TOPIC SCH (19:51)
[2018-03-16] VITALS (47 sets, daily range): BP systolic 89–131; BP diastolic 47–83
[2018-03-16] MEDS: Vancomycin 1250mg/D5W 250ml 250 ML IVPB SCH ×2 (00:15→12:57)
[2018-03-16] MEDS: Piperacillin/Tazobactam 3.375 GM in NS 110 ML IVPB SCH ×3 (06:30→21:52)
[2018-03-16] MEDS: Lacosamide 100 MG TABLET ORAL SCH ×3 (06:30→21:52)
[2018-03-16] MEDS: NovoLOG Insulin Flexpen SUBQ SCH ×4 (06:34→20:23)
[2018-03-16 06:56] LABS: ANION GAP 4 mmol/L (5-15); BLOOD UREA NITROGEN 11 mg/dL (7-18); CALCIUM 8.2 MG/DL (8.5-10.1); CARBON DIOXIDE 32 MMOL/L (21-32); CHLORIDE 107 MMOL/L (98-107); CREATININE 0.4 MG/DL (0.55-1.30); POTASSIUM 3.3 MMOL/L (3.5-5.1); SODIUM 143 MMOL/L (136-145)
[2018-03-16] MEDS: Heparin 5000 units/ml inj SUBQ SCH ×2 (08:19→20:23)
--- NOTE | 2018-03-16 08:53 | Critical Care Progress Note ---
Assessment/Plan Assessment/Plan Chronic respiratory failure, now with acute respiratory failure S/p Cardiorespiratory arrest, possible sepsis UTI Chronic muscular weakness H/o seizures severe protein calorie malnutrition PLAN replace K ID noted feeds vent antibiotics monitor cultures support update family - agree with trach; surgery called ICU management as is Critical Care - Subjective ROS Limited/Unobtainable: Yes Condition: critical EKG Rhythm: Sinus Rhythm Residuals: minimal Tube Feeding Tolerated: yes I&O: Intake and Output 03/15/18 03/16/18 19:00 07:00 Intake Total 1734.14 ml 1710.88 ml Output Total 790 ml 690 ml Balance 944.14 ml 1020.88 ml Intake Free Water 180 ml IV Total 1004.14 ml 1160.88 ml Tube Feeding 550 ml 550 ml Output Urine Total 790 ml 690 ml # Voids 60 # Bowel Movements 6 Critical Care - Objective ET-Tube: 6.0 ET Position: 22 Last 24 Hour Vital Signs Date Time Temp Pulse Resp B/P (MAP) Pulse Ox O2 Delivery O2 Flow Rate FiO2 03/16/18 08:23 100.4 03/16/18 08:00 50 03/16/18 08:00 109 03/16/18 08:00 Mechanical Ventilator 03/16/18 08:00 100.4 110 20 119/60 (79) 88 100.4 03/16/18 07:18 92 16 50 03/16/18 07:00 129/53 03/16/18 07:00 107 18 99/68 (78) 91 03/16/18 06:30 103 16 131/58 (82) 96 03/16/18 06:00 103 16 108/54 (72) 96 03/16/18 06:00 108/54 03/16/18 05:30 103 16 115/53 (73) 96 03/16/18 05:10 92 16 50 03/16/18 05:00 103 16 114/58 (76) 96 03/16/18 05:00 109/55 03/16/18 04:30 103 16 128/55 (79) 96 03/16/18 04:00 60 03/16/18 04:00 Mechanical Ventilator 03/16/18 04:00 111/61 03/16/18 04:00 99.4 103 16 114/61 (78) 96 99.4 03/16/18 04:00 90 03/16/18 03:30 104 16 122/61 (81) 96 03/16/18 03:00 99/54 03/16/18 03:00 103 16 114/58 (76) 96 03/16/18 02:51 114 16 55 03/16/18 02:30 100 16 99/54 (69) 96 03/16/18 02:00 100 18 96/52 (67) 96 03/16/18 02:00 96/51 03/16/18 01:30 95 16 108/55 (72) 96 03/16/18 01:00 100 18 113/60 (77) 96 03/16/18 01:00 113/60 03/16/18 00:41 96 16 55 03/16/18 00:30 100 16 114/59 (77) 96 03/16/18 00:00 94 03/16/18 00:00 98.8 95 17 95/50 (65) 96 98.8 03/16/18 00:00 60 03/16/18 00:00 95/52 03/16/18 00:00 Mechanical Ventilator 03/15/18 23:30 95 17 87/48 (61) 96 03/15/18 23:20 93 16 55 03/15/18 23:00 102 17 92/54 (67) 96 03/15/18 23:00 92/58 03/15/18 22:30 104 17 90/56 (67) 96 03/15/18 22:00 90/50 03/15/18 22:00 105 17 110/58 (75) 96 03/15/18 21:30 103 16 106/56 (73) 96 03/15/18 21:01 100 16 55 03/15/18 21:00 103 16 106/59 (75) 96 03/15/18 21:00 106/59 03/15/18 20:30 103 17 104/58 (73) 98 03/15/18 20:00 100 17 95/52 (66) 98 03/15/18 20:00 99 03/15/18 20:00 95/52 03/15/18 20:00 Mechanical Ventilator 03/15/18 20:00 60 03/15/18 19:30 99.0 103 16 105/57 (73) 100 99.0 03/15/18 19:27 104 17 60 03/15/18 19:00 107 17 105/62 (76) 100 03/15/18 18:00 100 17 113/65 (81) 100 03/15/18 18:00 121/66 03/15/18 17:16 96 16 55 03/15/18 17:00 104 18 111/65 (80) 98 03/15/18 17:00 107/57 03/15/18 16:00 60 03/15/18 16:00 99.3 102 19 104/79 (87) 98 99.3 03/15/18 16:00 Mechanical Ventilator 03/15/18 16:00 118/72 03/15/18 16:00 98 03/15/18 15:00 100 20 111/64 (80) 99 03/15/18 15:00 100 16 55 03/15/18 15:00 117/63 03/15/18 14:00 99 18 110/62 (78) 99 03/15/18 14:00 115/62 03/15/18 13:04 94 16 55 03/15/18 13:00 108/61 03/15/18 13:00 100 16 108/61 (77) 99 03/15/18 12:30 94 16 99/56 (70) 100 03/15/18 12:00 Mechanical Ventilator 03/15/18 12:00 94 03/15/18 12:00 97/53 03/15/18 12:00 96 20 107/58 (74) 100 03/15/18 11:47 100 17 55 03/15/18 11:40 98.9 98.9 03/15/18 11:34 98 03/15/18 11:30 99 16 104/57 (73) 100 03/15/18 11:00 116/65 03/15/18 11:00 106 20 116/65 (82) 91 03/15/18 10:30 95 16 95/53 (67) 100 03/15/18 10:00 108 16 90/52 (65) 99 03/15/18 10:00 90/52 03/15/18 09:45 98 16 91/52 (65) 99 03/15/18 09:41 93/54 03/15/18 09:38 99.4 03/15/18 09:30 101 16 93/54 (67) 99 03/15/18 09:15 104 16 90/51 (64) 99 03/15/18 09:10 60 03/15/18 09:08 99.8 03/15/18 09:00 106/54 03/15/18 09:00 99.8 108 17 106/54 (71) 99 99.8 Objective: WDWN intubated coars breath sounds bilaterally without rhonchi or wheeze [id number] without MRG NABS nontender no HSM; GT no CCE nonfocal and withdrawn Micro: Microbiology Date/Time Source Procedure Growth Status 03/14/18 13:30 Sputum Gram Stain - Final Resulted 03/14/18 13:30 Sputum Culture - Preliminary Gram Negative Bacillus 1 Resulted Accucheck: 154 Esvin Cortez MD Mar 16, 2018 08:53
--- NOTE | 2018-03-16 12:03 | Infectious Diseases Prog Note ---
Assessment/Plan Assessment/Plan A 1 E. .coli ESBL UTI 2. pneumonia 3. respiratory failure 4. diabetes mellitus 5. seizures 6. Anoxic encephalopathy 7. MRSA & VRE colonization P 1. continue vancomycin iv, Zosyn 2. sputum culture is pending 3. will follow up cultures Subjective ROS Limited/Unobtainable: Yes Constitutional: Reports: fever, other - Brrr=876.4 Allergies: Coded Allergies: No Known Allergies (Unverified , 03/12/18) Objective Vital Signs Last 24 Hour Vital Signs Date Time Temp Pulse Resp B/P (MAP) Pulse Ox O2 Delivery O2 Flow Rate FiO2 03/16/18 11:16 101 16 50 03/16/18 10:00 103 18 115/61 (79) 100 03/16/18 09:00 108 18 110/59 (76) 100 03/16/18 08:53 99.1 03/16/18 08:52 109 17 50 03/16/18 08:23 100.4 03/16/18 08:00 50 03/16/18 08:00 109 03/16/18 08:00 Mechanical Ventilator 03/16/18 08:00 100.4 110 20 119/60 (79) 88 100.4 03/16/18 07:18 92 16 50 03/16/18 07:00 129/53 03/16/18 07:00 107 18 99/68 (78) 91 03/16/18 06:30 103 16 131/58 (82) 96 03/16/18 06:00 103 16 108/54 (72) 96 03/16/18 06:00 108/54 03/16/18 05:30 103 16 115/53 (73) 96 03/16/18 05:10 92 16 50 03/16/18 05:00 103 16 114/58 (76) 96 03/16/18 05:00 109/55 03/16/18 04:30 103 16 128/55 (79) 96 03/16/18 04:00 60 03/16/18 04:00 Mechanical Ventilator 03/16/18 04:00 111/61 03/16/18 04:00 99.4 103 16 114/61 (78) 96 99.4 03/16/18 04:00 90 03/16/18 03:30 104 16 122/61 (81) 96 03/16/18 03:00 99/54 9/13/18 03:00 103 16 114/58 (76) 96 03/16/18 02:51 114 16 55 03/16/18 02:30 100 16 99/54 (69) 96 03/16/18 02:00 100 18 96/52 (67) 96 03/16/18 02:00 96/51 03/16/18 01:30 95 16 108/55 (72) 96 03/16/18 01:00 100 18 113/60 (77) 96 03/16/18 01:00 113/60 03/16/18 00:41 96 16 55 03/16/18 00:30 100 16 114/59 (77) 96 03/16/18 00:00 94 03/16/18 00:00 98.8 95 17 95/50 (65) 96 98.8 03/16/18 00:00 60 03/16/18 00:00 95/52 03/16/18 00:00 Mechanical Ventilator 03/15/18 23:30 95 17 87/48 (61) 96 03/15/18 23:20 93 16 55 03/15/18 23:00 102 17 92/54 (67) 96 03/15/18 23:00 92/58 03/15/18 22:30 104 17 90/56 (67) 96 03/15/18 22:00 90/50 03/15/18 22:00 105 17 110/58 (75) 96 03/15/18 21:30 103 16 106/56 (73) 96 03/15/18 21:01 100 16 55 03/15/18 21:00 103 16 106/59 (75) 96 03/15/18 21:00 106/59 03/15/18 20:30 103 17 104/58 (73) 98 03/15/18 20:00 100 17 95/52 (66) 98 03/15/18 20:00 99 03/15/18 20:00 95/52 03/15/18 20:00 Mechanical Ventilator 03/15/18 20:00 60 03/15/18 19:30 99.0 103 16 105/57 (73) 100 99.0 03/15/18 19:27 104 17 60 03/15/18 19:00 107 17 105/62 (76) 100 03/15/18 18:00 100 17 113/65 (81) 100 03/15/18 18:00 121/66 03/15/18 17:16 96 16 55 03/15/18 17:00 104 18 111/65 (80) 98 03/15/18 17:00 107/57 03/15/18 16:00 60 03/15/18 16:00 99.3 102 19 104/79 (87) 98 99.3 03/15/18 16:00 Mechanical Ventilator 03/15/18 16:00 118/72 03/15/18 16:00 98 03/15/18 15:00 100 20 111/64 (80) 99 03/15/18 15:00 100 16 55 03/15/18 15:00 117/63 03/15/18 14:00 99 18 110/62 (78) 99 03/15/18 14:00 115/62 03/15/18 13:04 94 16 55 03/15/18 13:00 108/61 03/15/18 13:00 100 16 108/61 (77) 99 03/15/18 12:30 94 16 99/56 (70) 100 03/15/18 12:00 Mechanical Ventilator 03/15/18 12:00 94 03/15/18 12:00 97/53 03/15/18 12:00 96 20 107/58 (74) 100 Height (Feet): 5 Height (Inches): 1.00 Weight (Pounds): 126 HEENT: other - dry red eyes Respiratory/Chest: lungs clear, other - on ventilator orally intubated Cardiovascular: tachycardia, other - RIJ central line Abdomen: soft, non tender Extremities: no edema, other - bilateral feet drop Neurologic/Psychiatric: other - comatose Microbiology Date/Time Source Procedure Growth Status 03/14/18 13:30 Sputum Gram Stain - Final Resulted 03/14/18 13:30 Sputum Culture - Preliminary Gram Negative Bacillus 1 Resulted Laboratory Tests Test 03/16/18 05:57 Sodium Level 143 MMOL/L (136-145) Potassium Level 3.3 MMOL/L (3.5-5.1) L Chloride Level 107 MMOL/L (98-107) Carbon Dioxide Level 32 MMOL/L (21-32) Anion Gap 4 mmol/L (5-15) L Blood Urea Nitrogen 11 mg/dL (7-18) Creatinine 0.4 MG/DL (0.55-1.30) L Estimat Glomerular Filtration Rate > 60 mL/min (>60) Glucose Level 154 MG/DL (74-106) H Calcium Level 8.2 MG/DL (8.5-10.1) L Current Medications Medications (Trade) Dose Ordered Sig/Emily Route PRN Reason Start Time Stop Time Status Last Admin Dose Admin Acetaminophen (Tylenol) 650 mg Q6H PRN ORAL Mild Pain/Temp > 100.5 03/13/18 22:45 04/12/18 22:44 03/16/18 08:23 Chlorhexidine Gluconate (Radha-Hex 2%) 1 applic DAILY@2000 TOPIC 03/13/18 20:00 04/12/18 19:59 03/15/18 19:51 Dextrose (Dextrose 50%) 25 ml STAT PRN IV Hypoglycemia 03/12/18 20:00 04/11/18 19:59 Dextrose (Dextrose 50%) 50 ml STAT PRN IV Hypoglycemia 03/12/18 20:00 04/11/18 19:59 Famotidine (Pepcid I.v.) 20 mg Q12HR IVP 03/12/18 21:00 04/11/18 20:59 03/16/18 08:18 Heparin Sodium (Porcine) (Heparin 5000 units/ml) 5,000 units EVERY 12 HOURS SUBQ 03/12/18 21:00 04/11/18 20:59 03/16/18 08:19 Insulin Aspart (NovoLOG) BEFORE MEALS AND HS SUBQ 03/12/18 21:00 04/11/18 20:59 03/16/18 11:29 Lacosamide (Vimpat) 200 mg Q8HR ORAL 03/12/18 22:00 04/11/18 21:59 03/16/18 06:30 Levetiracetam (Keppra) 1,500 mg BID GT 03/12/18 20:00 04/11/18 19:59 03/16/18 08:19 Lorazepam (Ativan 2mg/ml 1ml) 2 mg Q2H PRN IV For Seizures 03/12/18 18:00 03/19/18 17:59 Norepinephrine Bitartrate 8 mg/ Dextrose 558 ml @ 0 mls/hr Q24H IV 03/12/18 20:45 04/11/18 20:44 03/15/18 09:41 Piperacillin Sod/ Tazobactam Sod 3.375 gm/Sodium Chloride 110 ml @ 27.5 mls/hr Q8HR IVPB 03/12/18 22:00 03/19/18 21:59 03/16/18 06:30 Sodium Chloride 1,000 ml @ 50 mls/hr Q20H IV 03/14/18 18:00 04/11/18 17:59 03/16/18 11:02 Vancomycin HCl (Vanco rx to dose) 1 ea DAILY PRN MISC Per rx protocol 03/13/18 11:30 04/12/18 11:29 Vancomycin HCl/ Dextrose 250 ml @ 167 mls/hr Q12H IVPB 03/15/18 00:30 03/20/18 00:29 03/16/18 00:15 Del Wakefield MD Mar 16, 2018 12:03
--- NOTE | 2018-03-16 12:45 | Consultation ---
History of Present Illness General Date patient seen: Mar 16, 2018 Chief Complaint: CPR Reason for Consultation: Trach Eval Present Illness HPI 57 year old female with multiple medical comorbidities and history of respiratory failure with prior trach which has since been removed, seizure disorder, and anoxic/ischemic brain injury who lives in a NH and is fed with a PEG. Recent respirator compromise requiring intubation and ICU care. Given history and current medical condition surgery called to evaluate for trach. Allergies: Coded Allergies: No Known Allergies (Unverified , 03/12/18) Medication History Scheduled Aspirin* (Aspir 81*), 81 MG GT DAILY, (Reported) Atenolol* (Tenormin*), 12.5 MG GT DAILY, (Reported) Cholecalciferol (Vitamin D3)* (Vitamin D*), 1,000 UNIT GT BID, (Reported) Cran/Vitc/Mannose/Inulin/Brom (Uti-Stat Liquid), 3,875 MG GT BID, (Reported) Docusate Sodium* (Docusate Sodium*), 100 MG GT DAILY, (Reported) Epoetin Liam (Procrit), 1,000 UNIT SUBQ 3XW, (Reported) Famotidine (Famotidine), 20 MG ORAL EVERY 12 HOURS, (Reported) Ferrous Sulfate (Ferrous Sulfate), 330 MG PO THREE TIMES A DAY, (Reported) Lacosamide (Vimpat), 200 MG GT THREE TIMES A DAY, (Reported) Levetiracetam* (Levetiracetam*), 1,500 MG GT TWICE A DAY, (Reported) Multivitamin with Minerals (Support), 15 ML GT DAILY, (Reported) Topiramate* (Topamax*), 100 MG GT THREE TIMES A DAY, (Reported) [Vitamin C Liquid], 5 ML GT BID, (Reported) Scheduled PRN Bisacodyl* (Dulcolax*), 10 MG GT ONCE PRN for Constipation, (Reported) Magnesium Hydroxide* (Milk Of Magnesia*), 30 ML GT DAILY PRN for Constipation, ( Reported) Na Phos,M-B/Na Phos,Di-Ba* (Fleet Enema*), 133 ML RECTAL DAILY PRN for Constipation, (Reported) Ondansetron* (Zofran*), 4 MG GT Q6H PRN for Nausea & Vomiting, (Reported) [Acetaminophen Liquid], 640 MG GT Q4HR PRN for Fever/Headache/Mild Pain, ( Reported) Patient History History Provided By: Family Member, Medical Record, PMD Healthcare decision maker N Resuscitation status Full Code Advanced Directive on File No Past Medical/Surgical History Past Medical/Surgical History: (1) Respiratory distress (2) Sepsis (3) V tach (4) Urinary tract infection (5) Pneumonia (6) Cardiac arrest (7) Afib (8) Seizures (9) Respiratory failure Review of Systems ROS Narrative cannot obtain given medical condition Physical Exam General Appearance: no apparent distress Lines, tubes and drains: central line HEENT: atraumatic Neck: trach Respiratory/Chest: on vent Cardiovascular/Chest: tachycardia Abdomen: soft, no organomegaly, no mass, feeding tube Extremities: other Skin Exam: other Neurologic: unresponsiveness Last 24 Hour Vital Signs Date Time Temp Pulse Resp B/P (MAP) Pulse Ox O2 Delivery O2 Flow Rate FiO2 03/16/18 12:00 100 03/16/18 11:16 101 16 50 03/16/18 10:00 103 18 115/61 (79) 100 03/16/18 09:00 108 18 110/59 (76) 100 03/16/18 08:53 99.1 03/16/18 08:52 109 17 50 03/16/18 08:23 100.4 03/16/18 08:00 50 03/16/18 08:00 109 03/16/18 08:00 Mechanical Ventilator 03/16/18 08:00 100.4 110 20 119/60 (79) 88 100.4 03/16/18 07:18 92 16 50 03/16/18 07:00 129/53 03/16/18 07:00 107 18 99/68 (78) 91 03/16/18 06:30 103 16 131/58 (82) 96 03/16/18 06:00 103 16 108/54 (72) 96 03/16/18 06:00 108/54 03/16/18 05:30 103 16 115/53 (73) 96 03/16/18 05:10 92 16 50 03/16/18 05:00 103 16 114/58 (76) 96 03/16/18 05:00 109/55 03/16/18 04:30 103 16 128/55 (79) 96 03/16/18 04:00 60 03/16/18 04:00 Mechanical Ventilator 03/16/18 04:00 111/61 03/16/18 04:00 99.4 103 16 114/61 (78) 96 99.4 03/16/18 04:00 90 03/16/18 03:30 104 16 122/61 (81) 96 03/16/18 03:00 99/54 03/16/18 03:00 103 16 114/58 (76) 96 03/16/18 02:51 114 16 55 03/16/18 02:30 100 16 99/54 (69) 96 03/16/18 02:00 100 18 96/52 (67) 96 03/16/18 02:00 96/51 03/16/18 01:30 95 16 108/55 (72) 96 03/16/18 01:00 100 18 113/60 (77) 96 03/16/18 01:00 113/60 03/16/18 00:41 96 16 55 03/16/18 00:30 100 16 114/59 (77) 96 03/16/18 00:00 94 03/16/18 00:00 98.8 95 17 95/50 (65) 96 98.8 03/16/18 00:00 60 03/16/18 00:00 95/52 03/16/18 00:00 Mechanical Ventilator 03/15/18 23:30 95 17 87/48 (61) 96 03/15/18 23:20 93 16 55 03/15/18 23:00 102 17 92/54 (67) 96 03/15/18 23:00 92/58 03/15/18 22:30 104 17 90/56 (67) 96 03/15/18 22:00 90/50 03/15/18 22:00 105 17 110/58 (75) 96 03/15/18 21:30 103 16 106/56 (73) 96 03/15/18 21:01 100 16 55 03/15/18 21:00 103 16 106/59 (75) 96 03/15/18 21:00 106/59 03/15/18 20:30 103 17 104/58 (73) 98 03/15/18 20:00 100 17 95/52 (66) 98 03/15/18 20:00 99 03/15/18 20:00 95/52 03/15/18 20:00 Mechanical Ventilator 03/15/18 20:00 60 03/15/18 19:30 99.0 103 16 105/57 (73) 100 99.0 03/15/18 19:27 104 17 60 03/15/18 19:00 107 17 105/62 (76) 100 03/15/18 18:00 100 17 113/65 (81) 100 03/15/18 18:00 121/66 03/15/18 17:16 96 16 55 03/15/18 17:00 104 18 111/65 (80) 98 03/15/18 17:00 107/57 03/15/18 16:00 60 03/15/18 16:00 99.3 102 19 104/79 (87) 98 99.3 03/15/18 16:00 Mechanical Ventilator 03/15/18 16:00 118/72 03/15/18 16:00 98 03/15/18 15:00 100 20 111/64 (80) 99 03/15/18 15:00 100 16 55 03/15/18 15:00 117/63 03/15/18 14:00 99 18 110/62 (78) 99 03/15/18 14:00 115/62 03/15/18 13:04 94 16 55 03/15/18 13:00 108/61 03/15/18 13:00 100 16 108/61 (77) 99 Intake and Output 03/15/18 03/16/18 19:00 07:00 Intake Total 1734.14 ml 1760.88 ml Output Total 790 ml 740 ml Balance 944.14 ml 1020.88 ml Intake Free Water 180 ml IV Total 1004.14 ml 1160.88 ml Tube Feeding 550 ml 600 ml Output Urine Total 790 ml 740 ml # Voids 60 # Bowel Movements 6 Laboratory Tests Test 03/16/18 05:57 Sodium Level 143 MMOL/L (136-145) Potassium Level 3.3 MMOL/L (3.5-5.1) L Chloride Level 107 MMOL/L (98-107) Carbon Dioxide Level 32 MMOL/L (21-32) Anion Gap 4 mmol/L (5-15) L Blood Urea Nitrogen 11 mg/dL (7-18) Creatinine 0.4 MG/DL (0.55-1.30) L Estimat Glomerular Filtration Rate > 60 mL/min (>60) Glucose Level 154 MG/DL (74-106) H Calcium Level 8.2 MG/DL (8.5-10.1) L Height (Feet): 5 Height (Inches): 1.00 Weight (Pounds): 126 Medications Current Medications Medications (Trade) Dose Ordered Sig/Emily Route PRN Reason Start Time Stop Time Status Last Admin Dose Admin Acetaminophen (Tylenol) 650 mg Q6H PRN ORAL Mild Pain/Temp > 100.5 03/13/18 22:45 04/12/18 22:44 03/16/18 08:23 Chlorhexidine Gluconate (Radha-Hex 2%) 1 applic DAILY@2000 TOPIC 03/13/18 20:00 04/12/18 19:59 03/15/18 19:51 Dextrose (Dextrose 50%) 25 ml STAT PRN IV Hypoglycemia 03/12/18 20:00 04/11/18 19:59 Dextrose (Dextrose 50%) 50 ml STAT PRN IV Hypoglycemia 03/12/18 20:00 04/11/18 19:59 Famotidine (Pepcid I.v.) 20 mg Q12HR IVP 03/12/18 21:00 04/11/18 20:59 03/16/18 08:18 Heparin Sodium (Porcine) (Heparin 5000 units/ml) 5,000 units EVERY 12 HOURS SUBQ 03/12/18 21:00 04/11/18 20:59 03/16/18 08:19 Insulin Aspart (NovoLOG) BEFORE MEALS AND HS SUBQ 03/12/18 21:00 04/11/18 20:59 03/16/18 11:29 Lacosamide (Vimpat) 200 mg Q8HR ORAL 03/12/18 22:00 04/11/18 21:59 03/16/18 06:30 Levetiracetam (Keppra) 1,500 mg BID GT 03/12/18 20:00 04/11/18 19:59 03/16/18 08:19 Lorazepam (Ativan 2mg/ml 1ml) 2 mg Q2H PRN IV For Seizures 03/12/18 18:00 03/19/18 17:59 Norepinephrine Bitartrate 8 mg/ Dextrose 558 ml @ 0 mls/hr Q24H IV 03/12/18 20:45 04/11/18 20:44 03/15/18 09:41 Piperacillin Sod/ Tazobactam Sod 3.375 gm/Sodium Chloride 110 ml @ 27.5 mls/hr Q8HR IVPB 03/12/18 22:00 03/19/18 21:59 03/16/18 06:30 Sodium Chloride 1,000 ml @ 50 mls/hr Q20H IV 03/14/18 18:00 04/11/18 17:59 03/16/18 11:02 Vancomycin HCl (Vanco rx to dose) 1 ea DAILY PRN MISC Per rx protocol 03/13/18 11:30 04/12/18 11:29 Vancomycin HCl/ Dextrose 250 ml @ 167 mls/hr Q12H IVPB 03/15/18 00:30 03/20/18 00:29 03/16/18 00:15 Assessment/Plan Problem List: (1) Respiratory failure Assessment & Plan: respiratory failure requiring intubation and ventilatory support will likely require vent support for some time hx of similar event with prior trach spoke with family and they would prefer trach give her history and care goals. trach indicated and recommended will schedule for trach tomorrow npo p mn consent. thank you ICD Codes: J96.90 - Respiratory failure, unspecified, unspecified whether with hypoxia or hypercapnia SNOMED: [id number] Seun Yen Mar 16, 2018 12:45
--- NOTE | 2018-03-16 12:46 | Pre-Procedure Note/Attestation ---
Pre-Procedure Note/Attestation Complete Prior to Procedure Planned Procedure: not applicable Procedure Narrative: tracheostomy Indications for Procedure Pre-Operative Diagnosis: respiratory insufficiency requiring prolonged ventilatory support Attestation I attest that I discussed the nature of the procedure; its benefits; risks and complications; and alternatives (and the risks and benefits of such alternatives ), prior to the procedure, with the patient (or the patient's legal patient account representative). I attest that, if there was a reasonable possibility of needing a blood transfusion, the patient (or the patient's legal patient account representative) was given the [facility] standardized written summary, pursuant to the Hiro Brian Blood Safety Act ([place] Health and Safety Code # 1645, as amended). I attest that I re-evaluated the patient just prior to the surgery and that there has been no change in the patient's H&P, except as documented below: Seun Yen Mar 16, 2018 12:46
--- NOTE | 2018-03-16 13:39 | Anethesia Preoperative Eval ---
Anesthesia Pre-op PMH/ROS General Date of Evaluation: Mar 16, 2018 Time of Evaluation: 11:01 Anesthesiologist: Bhargavi ASA Score: ASA 4 Mallampati Score Class I : Soft palate, uvula, fauces, pillars visible Class II: Soft palate, uvula, fauces visible Class III: Soft palate, base of uvula visible Class IV: Only hard plate visible Mallampati Classification: Class III Surgeon: Farshad Diagnosis: Cardiopulmonary Arrest Surgical Procedure: Tracheostomy Family History: no anesthesia problems Allergies: Coded Allergies: No Known Allergies (Unverified , 03/12/18) Medications: see eMAR Past Medical History Cardiovascular: Reports: arrhythmia - Afib Pulmonary: Reports: asthma, COPD - Ventilatory Arrest, other - Infiltrates Neurologic/Psychiatric: Reports: CVA, other - Seizures Endocrine: Reports: DM Hematology/Immune: Reports: anemia, DVT, other - SLE PMH Narrative: Chronic respiratory failure, recently weaned of ventilator and decanulated S/p Cardiorespiratory arrest, ROSC in ED Elevated WCC and infiltrates on CXR Chronic muscular weakness H/o seizures Hyperphosphatemia PSxH Narrative: G Tube Anesthesia Pre-op Phys. Exam Physician Exam Last Vital Signs Date Time Temp Pulse Resp B/P (MAP) Pulse Ox O2 Delivery O2 Flow Rate FiO2 03/16/18 13:09 104 17 50 03/16/18 12:00 98.3 107/54 (71) 100 98.3 03/16/18 12:00 Mechanical Ventilator 03/15/18 08:00 15.0 Constitutional: NAD Neurologic: CN 2-12 intact Cardiovascular: RRR Respiratory: CTA Gastrointestinal: S/NT/ND Airway Exam Mallampati Score: Class III - Mechanical Ventilator MO: limited ROM: limited Teeth: missing, intact Anesthesia Pre-op A/P Labs Chemistry Test 03/16/18 05:57 Sodium Level 143 MMOL/L (136-145) Potassium Level 3.3 MMOL/L (3.5-5.1) L Chloride Level 107 MMOL/L (98-107) Carbon Dioxide Level 32 MMOL/L (21-32) Anion Gap 4 mmol/L (5-15) L Blood Urea Nitrogen 11 mg/dL (7-18) Creatinine 0.4 MG/DL (0.55-1.30) L Estimat Glomerular Filtration Rate > 60 mL/min (>60) Glucose Level 154 MG/DL (74-106) H Calcium Level 8.2 MG/DL (8.5-10.1) L Risk Assessment & Plan Assessment: ASA 4 Plan: GA Status Change Before Surgery: No Pre-Antibiotics Drug: Jeronimo London MD Mar 16, 2018 13:39
[2018-03-16] MEDS: Norepinephrine Bitartrate 8 MG in D5W 500ml 550 ML IV SCH (14:14)
--- NOTE | 2018-03-16 17:09 | Diagnostic Imaging Report ---
Indication: Altered level of consciousness Technique: Spiral acquisitions obtained through the abdomen and pelvis. No oral or IV contrast utilized, per urinary stone protocol. Multiplanar reconstructions were generated. Total dose length product 1326.44 mGycm. CTDIvol(s) 70.38 mGy. Dose reduction achieved using automated exposure control Comparison: none Findings: There is diffuse low-attenuation throughout the cerebrum and basal ganglia, with loss of black-white differentiation, attenuation of the sulci and perhaps some attenuation of the lateral ventricles. There is somewhat less striking low-attenuation in the cerebellum and somewhat less striking decrease cerebellar black-white differentiation. No acute intercranial hemorrhage. There is approximately [id number] midline shift, but no discrete mass lesion is demonstrated; this may just reflect some developmental asymmetry. The basilar cisterns remain open There is mucosal disease within the sphenoid and ethmoid sinuses as well as the right-sided frontal sinuses. The calvarium is intact Impression: Decreased attenuation of the cerebrum, and decreased black-white differentiation suggestive of diffuse cerebral edema. There may also be less severe cerebellar edema Negative for acute intracranial bleed Slight right to left midline shift; suspect developmental in nature but could indicate asymmetric degree of cerebral edema Findings discussed by phone with Dr. Andre at the time of interpretation The CT scanner at [facility] is accredited by the [place] and the scans are performed using protocols designed to limit radiation exposure to as low as reasonably achievable to attain images of sufficient resolution adequate for diagnostic evaluation. Brain trunk on
--- NOTE | 2018-03-16 18:22 | Neurology Progress Note ---
Interim History Interim History Interim History Ms. Reeves continues to be comatose. She has exhibited no improvement in her neurologic function. She is hemodynamically stable. She has exhibited no seizures or seizure-like phenomena. She is still intubated and artificially ventilated. She has not regained consciousness > 4 days post her anoxic/ischemic event. Review of Systems Neuro Review of Systems Unable to obtain. Objective Physical Exam Last Vital Signs Date Time Temp Pulse Resp B/P (MAP) Pulse Ox O2 Delivery O2 Flow Rate FiO2 03/16/18 18:00 107 17 119/56 (77) 96 03/16/18 16:57 50 03/16/18 16:00 Mechanical Ventilator 03/16/18 12:00 98.3 98.3 03/15/18 08:00 15.0 Laboratory Tests Test 03/16/18 05:57 Sodium Level 143 MMOL/L (136-145) Potassium Level 3.3 MMOL/L (3.5-5.1) L Chloride Level 107 MMOL/L (98-107) Carbon Dioxide Level 32 MMOL/L (21-32) Anion Gap 4 mmol/L (5-15) L Blood Urea Nitrogen 11 mg/dL (7-18) Creatinine 0.4 MG/DL (0.55-1.30) L Estimat Glomerular Filtration Rate > 60 mL/min (>60) Glucose Level 154 MG/DL (74-106) H Calcium Level 8.2 MG/DL (8.5-10.1) L Neurologic Exam Objective PHYSICAL EXAMINATION: GENERAL: She is a well-developed, but chronically ill-looking lady, lying in an ICU bed exhibiting bilateral ankle cord contractures. HEAD: Normocephalic and atraumatic. EENT: Examination benign. NECK: No neck rigidity was observed. NEUROLOGICAL EXAMINATION: MENTAL STATUS EXAMINATION: She was comatose and only responded to deep pain with decerebration in the upper extremities and no response in the lower extremities. Further mental status testing was impossible. SPEECH: Could not be tested. LANGUAGE: Could not be tested. CRANIAL NERVE EXAMINATION: II: She did not blink to threat. III, IV, : External ocular movements were present, but restricted on oculocephalic maneuvers. The right pupil was 2.5 mm and left pupil 3.5 mm, and reactive to light in a sluggish manner. V & VII: The corneal reflexes were absent. VIII: She did not respond to sounds and had no nystagmus. IX & X: The gag reflex was absent on manipulating the endotracheal tube. XI: The sternocleidomastoids and trapezii did not function. XII: Could not be tested adequately. MOTOR SYSTEM: The tone was diminished in all four extremities. Examination of muscle mass revealed generalized muscle wasting and she had bilateral ankle cord contractures. Examination of power was impossible to perform because even on applying deep painful stimuli, no purposeful movements were seen. SENSORY EXAMINATION: She did not respond even to deep painful stimuli other than decerebration in the upper extremities. REFLEXES: 0 at the biceps, triceps, brachioradialis, knees, and ankles. The plantar responses were mute bilaterally. COORDINATION, STANCE & GAIT: Could not be tested. Impression/Recommendations Diagnostic Impression 1. Ms. 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 She was found unresponsive in her penitentiary. When the paramedics got to her, she was in full arrest. By the time she could be resuscitated by the paramedics and then in the hospital, it took approximately 20 minutes to obtain pulse and blood pressure. She has been comatose ever since. 2. She continues to be comatose. She has exhibited no improvement in her neurologic function. She is hemodynamically stable. She has exhibited no seizures or seizure-like phenomena. She is still intubated and artificially ventilated. 3. On neurological examination, at this time, she is comatose and does not respond even to deep painful stimuli other than decerebration in the upper extremities. She does have eye movements on oculocephalic maneuvers and her pupils react sluggishly to light. She does have an anisocoria with the right pupil being 2.5 mm and the left pupil 3.5 mm. She does not demonstrate any other signs of cortical or brainstem function. She is areflexic. 4. Laboratory data on my initial evaluation revealed that her WBC count was elevated to 25,600. She was anemic with hemoglobin of 11.1 G. Her arterial blood gas when she came to the hospital revealed pH of 7.06, pCO2 of 90, pO2 of 51. Her chemistry panel on admission revealed glucose of 452, AST elevated at 63, ALT elevated at 110, alkaline phosphatase elevated at 205, and a low albumin of 2.0. Her B[place] 4798. Her urinalysis revealed 3+ leukocyte esterase, 5-10 red blood cells, and 40-60 white blood cells per high-power field. 5. The EEG done on 03/13/18 revealed a burst suppression pattern which is indicative of severe anoxic/ischemic brain damage. 6. The CT of the brain done on 03/16/18 revealed signs of severe anoxic ischemic brain injury. 7. The patient's history, neurological examination, EEG, CT of brain, and laboratory data are most compatible with a prior cerebral injury related to respiratory failure and seizures, and then a cardiopulmonary arrest on the day of admission associated with an ongoing infectious process with a severe brain injury of an anoxic/ischemic type. 8. The prognosis for recovery of brain function is dismal because of the underlying pre-existing structural brain disease, the superimposed recent anoxic ischemic cerebral insult with severe structural brain damage, and her not regaining consciousness > 4 days following the anoxic/ischemic event. Recommendations 1. Continue present management. 2. Continue treatment of the patient's seizures with the present therapeutic regimen. 3. In light of her poor prognosis re-consider how intensive her care should be. Hayde Andre M.D., M.S.P.HAYDE OLIVERA Mar 16, 2018 18:22
[2018-03-16] MEDS: Dyna-Hex 2% Top Sol 2oz TOPIC SCH (19:41)
[2018-03-17] VITALS (29 sets, daily range): BP systolic 74–143; BP diastolic 45–81
[2018-03-17] MEDS: Vancomycin 1250mg/D5W 250ml 250 ML IVPB SCH (01:02)
[2018-03-17] MEDS: Piperacillin/Tazobactam 3.375 GM in NS 110 ML IVPB SCH (05:32)
[2018-03-17] MEDS: Lacosamide 100 MG TABLET ORAL SCH ×3 (05:32→22:08)
[2018-03-17 05:50] LABS: HEMATOCRIT 27.1 % (37.0-47.0); HEMOGLOBIN 8.6 G/DL (12.0-16.0); MEAN CORPUSCULAR VOLUME 91 FL (80-99); PLATELET COUNT 187 K/UL (150-450); RED BLOOD COUNT 2.96 M/UL (4.20-5.40); RED CELL DISTRIBUTION WIDTH 11.9 % (11.6-14.8); WHITE BLOOD COUNT 15.9 K/UL (4.8-10.8)
[2018-03-17 06:01] LABS: ALANINE AMINOTRANSFERASE 29 U/L (12-78); ALBUMIN 1.4 G/DL (3.4-5.0); ALBUMIN/GLOBULIN RATIO 0.3 (1.0-2.7); ALKALINE PHOSPHATASE 106 U/L (46-116); ANION GAP 3 mmol/L (5-15); ASPARTATE AMINO TRANSFERASE 47 U/L (15-37); BILIRUBIN,TOTAL 0.4 MG/DL (0.2-1.0); BLOOD UREA NITROGEN 13 mg/dL (7-18); CALCIUM 8.4 MG/DL (8.5-10.1); CARBON DIOXIDE 34 MMOL/L (21-32); CHLORIDE 107 MMOL/L (98-107); CREATININE 0.4 MG/DL (0.55-1.30); POTASSIUM 3.6 MMOL/L (3.5-5.1); SODIUM 144 MMOL/L (136-145)
[2018-03-17] MEDS: NovoLOG Insulin Flexpen SUBQ SCH ×4 (06:30→21:02)
[2018-03-17] MEDS: Heparin 5000 units/ml inj SUBQ SCH ×2 (08:15→21:03)
--- NOTE | 2018-03-17 08:37 | Critical Care Progress Note ---
Assessment/Plan Assessment/Plan Chronic respiratory failure, now with acute respiratory failure S/p Cardiorespiratory arrest, possible sepsis UTI Chronic muscular weakness H/o seizures severe protein calorie malnutrition PLAN monitor lytes ID noted feeds vent antibiotics monitor cultures support trach today stabilize and dc to subacute when stable ICU management as is Critical Care - Subjective ROS Limited/Unobtainable: Yes Condition: unchanged EKG Rhythm: Sinus Rhythm Residuals: minimal Tube Feeding Tolerated: yes I&O: Intake and Output 03/16/18 03/17/18 19:00 07:00 Intake Total 2184.88 ml 1185.63 ml Output Total 690 ml 1060 ml Balance 1494.88 ml 125.63 ml Intake Free Water 280 ml IV Total 1304.88 ml 925.63 ml Tube Feeding 600 ml 150 ml Other 110 ml Output Urine Total 690 ml 1060 ml # Bowel Movements 2 Critical Care - Objective ET-Tube: 6.0 ET Position: 22 Last 24 Hour Vital Signs Date Time Temp Pulse Resp B/P (MAP) Pulse Ox O2 Delivery O2 Flow Rate FiO2 03/17/18 07:00 105 33 117/71 (86) 94 03/17/18 06:43 109 17 100 03/17/18 06:30 102 31 86/68 (74) 94 03/17/18 06:00 104 31 78/49 (59) 94 03/17/18 05:20 104 16 100 03/17/18 05:00 104 31 105/63 (77) 94 03/17/18 04:00 105 31 98/66 (77) 94 03/17/18 04:00 100 03/17/18 04:00 Mechanical Ventilator 03/17/18 04:00 101 03/17/18 03:30 106 30 107/71 (83) 92 03/17/18 03:29 109 20 80 03/17/18 03:00 99.3 96 17 74/46 (55) 94 99.3 03/17/18 02:30 96 16 81/45 (57) 98 03/17/18 02:00 112 22 127/69 (88) 86 03/17/18 01:00 107 17 109/50 (69) 93 03/17/18 00:42 96 16 80 03/17/18 00:30 99 16 103/52 (69) 99 03/17/18 00:00 99 16 108/56 (73) 100 03/17/18 00:00 105 03/17/18 00:00 Mechanical Ventilator 03/16/18 23:30 105 17 122/63 (82) 98 03/16/18 23:00 97.9 104 17 109/54 (72) 98 97.9 03/16/18 23:00 103 17 90 03/16/18 22:30 94 17 89/52 (64) 98 03/16/18 22:00 105 17 116/56 (76) 96 03/16/18 21:30 105 17 97/55 (69) 96 03/16/18 21:08 110 17 90 03/16/18 21:00 109 17 107/60 (76) 96 03/16/18 20:30 109 16 113/54 (73) 98 03/16/18 20:00 Mechanical Ventilator 03/16/18 20:00 100 03/16/18 20:00 114 17 109/57 (74) 97 03/16/18 20:00 113 03/16/18 19:30 113 17 112/64 (80) 97 03/16/18 19:20 118 17 100 03/16/18 19:00 97.3 111 17 118/66 (83) 98 97.3 03/16/18 18:30 114 18 122/58 (79) 91 03/16/18 18:00 107 17 119/56 (77) 96 03/16/18 17:30 109 17 119/56 (77) 98 03/16/18 17:00 106 17 113/63 (80) 96 03/16/18 16:57 104 18 50 03/16/18 16:30 99.5 94 17 107/55 (72) 100 99.5 03/16/18 16:00 116 03/16/18 16:00 Mechanical Ventilator 03/16/18 16:00 100 03/16/18 16:00 99 17 104/83 (90) 99 03/16/18 15:30 111 22 131/60 (83) 95 03/16/18 15:08 106 16 50 03/16/18 15:00 105 17 109/60 (76) 98 03/16/18 15:00 109/60 03/16/18 14:30 106 16 120/56 (77) 95 03/16/18 14:14 118/57 03/16/18 14:00 107 16 124/61 (82) 94 03/16/18 14:00 124/61 03/16/18 13:30 105 16 113/67 (82) 97 03/16/18 13:09 104 17 50 03/16/18 13:00 123/47 03/16/18 13:00 105 16 123/47 (72) 99 03/16/18 13:00 108 03/16/18 12:30 97 16 119/62 (81) 100 03/16/18 12:00 98.3 97 16 107/54 (71) 100 98.3 03/16/18 12:00 107/54 03/16/18 12:00 100 03/16/18 12:00 Mechanical Ventilator 03/16/18 11:30 96 16 118/55 (76) 100 03/16/18 11:16 101 16 50 03/16/18 11:00 97 16 105/57 (73) 99 03/16/18 11:00 105/57 03/16/18 10:30 100 17 112/57 (75) 100 03/16/18 10:00 103 18 115/61 (79) 100 03/16/18 10:00 115/61 03/16/18 09:30 106 20 118/60 (79) 100 03/16/18 09:00 110/59 03/16/18 09:00 108 18 110/59 (76) 100 03/16/18 08:53 99.1 03/16/18 08:52 109 17 50 Labs: Labs Test 03/14/18 23:24 03/15/18 05:30 03/15/18 08:55 03/16/18 05:57 Vancomycin Level Trough 11.6 ug/mL (5.0-12.0) White Blood Count 18.9 K/UL (4.8-10.8) Red Blood Count 3.04 M/UL (4.20-5.40) Hemoglobin 9.1 G/DL (12.0-16.0) Hematocrit 27.8 % (37.0-47.0) Mean Corpuscular Volume 92 FL (80-99) Mean Corpuscular Hemoglobin 30.1 PG (27.0-31.0) Mean Corpuscular Hemoglobin Concent 32.8 G/DL (32.0-36.0) Red Cell Distribution Width 11.7 % (11.6-14.8) Platelet Count 190 K/UL (150-450) Mean Platelet Volume 7.6 FL (6.5-10.1) Neutrophils (%) (Auto) % (45.0-75.0) Lymphocytes (%) (Auto) % (20.0-45.0) Monocytes (%) (Auto) % (1.0-10.0) Eosinophils (%) (Auto) % (0.0-3.0) Basophils (%) (Auto) % (0.0-2.0) Differential Total Cells Counted 100 Neutrophils % (Manual) 96 % (45-75) Lymphocytes % (Manual) 3 % (20-45) Monocytes % (Manual) 1 % (1-10) Eosinophils % (Manual) 0 % (0-3) Basophils % (Manual) 0 % (0-2) Band Neutrophils 0 % (0-8) Platelet Estimate Adequate Platelet Morphology Normal Hypochromasia 2+ Anisocytosis 1+ Spherocytes 1+ Sodium Level 143 MMOL/L (136-145) 143 MMOL/L (136-145) Potassium Level 2.8 MMOL/L (3.5-5.1) 3.3 MMOL/L (3.5-5.1) Chloride Level 108 MMOL/L (98-107) 107 MMOL/L (98-107) Carbon Dioxide Level 27 MMOL/L (21-32) 32 MMOL/L (21-32) Anion Gap 8 mmol/L (5-15) 4 mmol/L (5-15) Blood Urea Nitrogen 10 mg/dL (7-18) 11 mg/dL (7-18) Creatinine 0.5 MG/DL (0.55-1.30) 0.4 MG/DL (0.55-1.30) Estimat Glomerular Filtration Rate > 60 mL/min (>60) > 60 mL/min (>60) Glucose Level 93 MG/DL (74-106) 154 MG/DL (74-106) Calcium Level 8.8 MG/DL (8.5-10.1) 8.2 MG/DL (8.5-10.1) Arterial Blood pH 7.338 (7.350-7.450) Arterial Blood Partial Pressure CO2 46.3 mmHg (35.0-45.0) Arterial Blood Partial Pressure O2 73.2 mmHg (75.0-100.0) Arterial Blood HCO3 24.3 mmol/L (22.0-26.0) Arterial Blood Oxygen Saturation 93.6 % (92.0-98.0) Arterial Blood Base Excess -1.7 Akira Test Positive Test 03/17/18 04:00 White Blood Count 15.9 K/UL (4.8-10.8) Red Blood Count 2.96 M/UL (4.20-5.40) Hemoglobin 8.6 G/DL (12.0-16.0) Hematocrit 27.1 % (37.0-47.0) Mean Corpuscular Volume 91 FL (80-99) Mean Corpuscular Hemoglobin 28.9 PG (27.0-31.0) Mean Corpuscular Hemoglobin Concent 31.6 G/DL (32.0-36.0) Red Cell Distribution Width 11.9 % (11.6-14.8) Platelet Count 187 K/UL (150-450) Mean Platelet Volume 8.4 FL (6.5-10.1) Neutrophils (%) (Auto) % (45.0-75.0) Lymphocytes (%) (Auto) % (20.0-45.0) Monocytes (%) (Auto) % (1.0-10.0) Eosinophils (%) (Auto) % (0.0-3.0) Basophils (%) (Auto) % (0.0-2.0) Prothrombin Time 10.8 SEC (9.30-11.50) Prothromb Time International Ratio 1.0 (0.9-1.1) Activated Partial Thromboplast Time 27 SEC (23-33) Sodium Level 144 MMOL/L (136-145) Potassium Level 3.6 MMOL/L (3.5-5.1) Chloride Level 107 MMOL/L (98-107) Carbon Dioxide Level 34 MMOL/L (21-32) Anion Gap 3 mmol/L (5-15) Blood Urea Nitrogen 13 mg/dL (7-18) Creatinine 0.4 MG/DL (0.55-1.30) Estimat Glomerular Filtration Rate > 60 mL/min (>60) Glucose Level 137 MG/DL (74-106) Calcium Level 8.4 MG/DL (8.5-10.1) Total Bilirubin 0.4 MG/DL (0.2-1.0) Aspartate Amino Transf (AST/SGOT) 47 U/L (15-37) Alanine Aminotransferase (ALT/SGPT) 29 U/L (12-78) Alkaline Phosphatase 106 U/L (46-116) Total Protein 5.5 G/DL (6.4-8.2) Albumin 1.4 G/DL (3.4-5.0) Globulin 4.1 g/dL Albumin/Globulin Ratio 0.3 (1.0-2.7) Objective: WDWN intubated coars breath sounds bilaterally without rhonchi or wheeze [id number] without MRG NABS nontender no HSM; GT no CCE nonfocal and withdrawn Micro: Microbiology Date/Time Source Procedure Growth Status 03/14/18 13:30 Sputum Gram Stain - Final Resulted 03/14/18 13:30 Sputum Culture - Preliminary Providencia Stuartii Gram Negative Bacillus 2 Resulted Accucheck: 127 Esvin Cortez MD Mar 17, 2018 08:37
--- NOTE | 2018-03-17 10:59 | Infectious Diseases Prog Note ---
"Assessment/Plan Assessment/Plan antibiotics : vancomycin iv, zosyn A 1. e.coli UTI 2. providencia | gram negative pneumonia 3. respiratory failure 4. diabetes mellitus 5. seizures P 1. d/c vancomycin iv, zosyn 2. start meropenem 3. will follow up cultures Subjective ROS Limited/Unobtainable: Yes Allergies: Coded Allergies: No Known Allergies (Unverified , 03/12/18) Objective Vital Signs Last 24 Hour Vital Signs Date Time Temp Pulse Resp B/P (MAP) Pulse Ox O2 Delivery O2 Flow Rate FiO2 03/17/18 08:47 111 17 100 03/17/18 08:00 105 03/17/18 08:00 Mechanical Ventilator 03/17/18 08:00 100 03/17/18 08:00 98.8 101 16 132/65 (87) 94 98.8 03/17/18 07:00 105 33 117/71 (86) 94 03/17/18 06:43 109 17 100 03/17/18 06:30 102 31 86/68 (74) 94 03/17/18 06:00 104 31 78/49 (59) 94 03/17/18 05:20 104 16 100 03/17/18 05:00 104 31 105/63 (77) 94 03/17/18 04:00 105 31 98/66 (77) 94 03/17/18 04:00 100 03/17/18 04:00 Mechanical Ventilator 03/17/18 04:00 101 03/17/18 03:30 106 30 107/71 (83) 92 03/17/18 03:29 109 20 80 03/17/18 03:00 99.3 96 17 74/46 (55) 94 99.3 03/17/18 02:30 96 16 81/45 (57) 98 03/17/18 02:00 112 22 127/69 (88) 86 03/17/18 01:00 107 17 109/50 (69) 93 03/17/18 00:42 96 16 80 03/17/18 00:30 99 16 103/52 (69) 99 03/17/18 00:00 99 16 108/56 (73) 100 03/17/18 00:00 105 03/17/18 00:00 Mechanical Ventilator 03/16/18 23:30 105 17 122/63 (82) 98 03/16/18 23:00 97.9 104 17 109/54 (72) 98 97.9 03/16/18 23:00 103 17 90 03/16/18 22:30 94 17 89/52 (64) 98 03/16/18 22:00 105 17 116/56 (76) 96 03/16/18 21:30 105 17 97/55 (69) 96 03/16/18 21:08 110 17 90 03/16/18 21:00 109 17 107/60 (76) 96 03/16/18 20:30 109 16 113/54 (73) 98 03/16/18 20:00 Mechanical Ventilator 03/16/18 20:00 100 03/16/18 20:00 114 17 109/57 (74) 97 03/16/18 20:00 113 03/16/18 19:30 113 17 112/64 (80) 97 03/16/18 19:20 118 17 100 03/16/18 19:00 97.3 111 17 118/66 (83) 98 97.3 03/16/18 18:30 114 18 122/58 (79) 91 03/16/18 18:00 107 17 119/56 (77) 96 03/16/18 17:30 109 17 119/56 (77) 98 03/16/18 17:00 106 17 113/63 (80) 96 03/16/18 16:57 104 18 50 03/16/18 16:30 99.5 94 17 107/55 (72) 100 99.5 03/16/18 16:00 116 03/16/18 16:00 Mechanical Ventilator 03/16/18 16:00 100 03/16/18 16:00 99 17 104/83 (90) 99 03/16/18 15:30 111 22 131/60 (83) 95 03/16/18 15:08 106 16 50 03/16/18 15:00 105 17 109/60 (76) 98 03/16/18 15:00 109/60 03/16/18 14:30 106 16 120/56 (77) 95 03/16/18 14:14 118/57 03/16/18 14:00 107 16 124/61 (82) 94 03/16/18 14:00 124/61 03/16/18 13:30 105 16 113/67 (82) 97 03/16/18 13:09 104 17 50 03/16/18 13:00 123/47 03/16/18 13:00 105 16 123/47 (72) 99 03/16/18 13:00 108 03/16/18 12:30 97 16 119/62 (81) 100 03/16/18 12:00 98.3 97 16 107/54 (71) 100 98.3 03/16/18 12:00 107/54 03/16/18 12:00 100 03/16/18 12:00 Mechanical Ventilator 03/16/18 11:30 96 16 118/55 (76) 100 03/16/18 11:16 101 16 50 03/16/18 11:00 97 16 105/57 (73) 99 03/16/18 11:00 105/57 Height (Feet): 5 Height (Inches): 1.00 Weight (Pounds): 126 HEENT: other - intubated Respiratory/Chest: lungs clear Cardiovascular: normal rate, regular rhythm, no gallop/murmur Abdomen: soft, non tender Extremities: other - + edema, right IJ catheter Microbiology Date/Time Source Procedure Growth Status 03/14/18 13:30 Sputum Gram Stain - Final Resulted 03/14/18 13:30 Sputum Culture - Preliminary Providencia Stuartii Gram Negative Bacillus 2 Resulted Laboratory Tests Test 03/17/18 04:00 White Blood Count 15.9 K/UL (4.8-10.8) H Red Blood Count 2.96 M/UL (4.20-5.40) L Hemoglobin 8.6 G/DL (12.0-16.0) L Hematocrit 27.1 % (37.0-47.0) L Mean Corpuscular Volume 91 FL (80-99) Mean Corpuscular Hemoglobin 28.9 PG (27.0-31.0) Mean Corpuscular Hemoglobin Concent 31.6 G/DL (32.0-36.0) L Red Cell Distribution Width 11.9 % (11.6-14.8) Platelet Count 187 K/UL (150-450) Mean Platelet Volume 8.4 FL (6.5-10.1) Neutrophils (%) (Auto) % (45.0-75.0) Lymphocytes (%) (Auto) % (20.0-45.0) Monocytes (%) (Auto) % (1.0-10.0) Eosinophils (%) (Auto) % (0.0-3.0) Basophils (%) (Auto) % (0.0-2.0) Differential Total Cells Counted 100 Neutrophils % (Manual) 88 % (45-75) H Lymphocytes % (Manual) 6 % (20-45) L Monocytes % (Manual) 4 % (1-10) Eosinophils % (Manual) 1 % (0-3) Basophils % (Manual) 0 % (0-2) Band Neutrophils 1 % (0-8) Platelet Estimate Adequate Platelet Morphology Normal Hypochromasia 1+ Stomatocytes Occasional Prothrombin Time 10.8 SEC (9.30-11.50) Prothromb Time International Ratio 1.0 (0.9-1.1) Activated Partial Thromboplast Time 27 SEC (23-33) Sodium Level 144 MMOL/L (136-145) Potassium Level 3.6 MMOL/L (3.5-5.1) Chloride Level 107 MMOL/L (98-107) Carbon Dioxide Level 34 MMOL/L (21-32) H Anion Gap 3 mmol/L (5-15) L Blood Urea Nitrogen 13 mg/dL (7-18) Creatinine 0.4 MG/DL (0.55-1.30) L Estimat Glomerular Filtration Rate > 60 mL/min (>60) Glucose Level 137 MG/DL (74-106) H Calcium Level 8.4 MG/DL (8.5-10.1) L Total Bilirubin 0.4 MG/DL (0.2-1.0) Aspartate Amino Transf (AST/SGOT) 47 U/L (15-37) H Alanine Aminotransferase (ALT/SGPT) 29 U/L (12-78) Alkaline Phosphatase 106 U/L (46-116) Total Protein 5.5 G/DL (6.4-8.2) L Albumin 1.4 G/DL (3.4-5.0) L Globulin 4.1 g/dL Albumin/Globulin Ratio 0.3 (1.0-2.7) L Current Medications Medications (Trade) Dose Ordered Sig/Emily Route PRN Reason Start Time Stop Time Status Last Admin Dose Admin Acetaminophen (Tylenol) 650 mg Q6H PRN ORAL Mild Pain/Temp > 100.5 03/13/18 22:45 04/12/18 22:44 03/16/18 08:23 Chlorhexidine Gluconate (Radha-Hex 2%) 1 applic DAILY@2000 TOPIC 03/13/18 20:00 04/12/18 19:59 03/16/18 19:41 Dextrose (Dextrose 50%) 25 ml STAT PRN IV Hypoglycemia 03/12/18 20:00 04/11/18 19:59 Dextrose (Dextrose 50%) 50 ml STAT PRN IV Hypoglycemia 03/12/18 20:00 04/11/18 19:59 Famotidine (Pepcid I.v.) 20 mg Q12HR IVP 03/12/18 21:00 04/11/18 20:59 03/17/18 08:15 Heparin Sodium (Porcine) (Heparin 5000 units/ml) 5,000 units EVERY 12 HOURS SUBQ 03/12/18 21:00 04/11/18 20:59 03/16/18 20:23 Insulin Aspart (NovoLOG) BEFORE MEALS AND HS SUBQ 03/12/18 21:00 04/11/18 20:59 03/16/18 20:23 Lacosamide (Vimpat) 200 mg Q8HR ORAL 03/12/18 22:00 04/11/18 21:59 03/17/18 05:32 Levetiracetam (Keppra) 1,500 mg BID GT 03/12/18 20:00 04/11/18 19:59 03/16/18 17:45 Lorazepam (Ativan 2mg/ml 1ml) 2 mg Q2H PRN IV For Seizures 03/12/18 18:00 03/19/18 17:59 Norepinephrine Bitartrate 8 mg/ Dextrose 558 ml @ 0 mls/hr Q24H IV 03/12/18 20:45 04/11/18 20:44 03/16/18 14:14 Piperacillin Sod/ Tazobactam Sod 3.375 gm/Sodium Chloride 110 ml @ 27.5 mls/hr Q8HR IVPB 03/12/18 22:00 03/19/18 21:59 03/17/18 05:32 Sodium Chloride 1,000 ml @ 50 mls/hr Q20H IV 03/14/18 18:00 04/11/18 17:59 03/16/18 11:02 Vancomycin HCl (Vanco rx to dose) 1 ea DAILY PRN MISC Per rx protocol 03/13/18 11:30 04/12/18 11:29 Vancomycin HCl/ Dextrose 250 ml @ 167 mls/hr Q12H IVPB 03/15/18 00:30 03/20/18 00:29 03/17/18 01:02 CARLITA FRANKLIN Mar 17, 2018 10:59"
[2018-03-17] MEDS: Meropenem 1 GM in NS 55 ML IVPB SCH ×2 (13:35→22:08)
--- NOTE | 2018-03-17 14:37 | Neurology Progress Note ---
Interim History Interim History Interim History Ms. Reeves continues to be comatose. She has exhibited no improvement in her neurologic function. She is hemodynamically stable. She has exhibited no seizures or seizure-like phenomena. She is still intubated and artificially ventilated. She has not regained consciousness > 5 days post her anoxic/ischemic event. Plans are to place a tracheostomy. Review of Systems Neuro Review of Systems Unable to obtain. Objective Physical Exam Last Vital Signs Date Time Temp Pulse Resp B/P (MAP) Pulse Ox O2 Delivery O2 Flow Rate FiO2 03/17/18 12:46 102 16 100 03/17/18 12:00 Mechanical Ventilator 03/17/18 12:00 92/56 (68) 94 03/17/18 08:00 98.8 98.8 03/15/18 08:00 15.0 Laboratory Tests Test 03/17/18 04:00 White Blood Count 15.9 K/UL (4.8-10.8) H Red Blood Count 2.96 M/UL (4.20-5.40) L Hemoglobin 8.6 G/DL (12.0-16.0) L Hematocrit 27.1 % (37.0-47.0) L Mean Corpuscular Volume 91 FL (80-99) Mean Corpuscular Hemoglobin 28.9 PG (27.0-31.0) Mean Corpuscular Hemoglobin Concent 31.6 G/DL (32.0-36.0) L Red Cell Distribution Width 11.9 % (11.6-14.8) Platelet Count 187 K/UL (150-450) Mean Platelet Volume 8.4 FL (6.5-10.1) Neutrophils (%) (Auto) % (45.0-75.0) Lymphocytes (%) (Auto) % (20.0-45.0) Monocytes (%) (Auto) % (1.0-10.0) Eosinophils (%) (Auto) % (0.0-3.0) Basophils (%) (Auto) % (0.0-2.0) Differential Total Cells Counted 100 Neutrophils % (Manual) 88 % (45-75) H Lymphocytes % (Manual) 6 % (20-45) L Monocytes % (Manual) 4 % (1-10) Eosinophils % (Manual) 1 % (0-3) Basophils % (Manual) 0 % (0-2) Band Neutrophils 1 % (0-8) Platelet Estimate Adequate Platelet Morphology Normal Hypochromasia 1+ Stomatocytes Occasional Prothrombin Time 10.8 SEC (9.30-11.50) Prothromb Time International Ratio 1.0 (0.9-1.1) Activated Partial Thromboplast Time 27 SEC (23-33) Sodium Level 144 MMOL/L (136-145) Potassium Level 3.6 MMOL/L (3.5-5.1) Chloride Level 107 MMOL/L (98-107) Carbon Dioxide Level 34 MMOL/L (21-32) H Anion Gap 3 mmol/L (5-15) L Blood Urea Nitrogen 13 mg/dL (7-18) Creatinine 0.4 MG/DL (0.55-1.30) L Estimat Glomerular Filtration Rate > 60 mL/min (>60) Glucose Level 137 MG/DL (74-106) H Calcium Level 8.4 MG/DL (8.5-10.1) L Total Bilirubin 0.4 MG/DL (0.2-1.0) Aspartate Amino Transf (AST/SGOT) 47 U/L (15-37) H Alanine Aminotransferase (ALT/SGPT) 29 U/L (12-78) Alkaline Phosphatase 106 U/L (46-116) Total Protein 5.5 G/DL (6.4-8.2) L Albumin 1.4 G/DL (3.4-5.0) L Globulin 4.1 g/dL Albumin/Globulin Ratio 0.3 (1.0-2.7) L Neurologic Exam Objective PHYSICAL EXAMINATION: GENERAL: She is a well-developed, but chronically ill-looking lady, lying in an ICU bed exhibiting bilateral ankle cord contractures. HEAD: Normocephalic and atraumatic. EENT: Examination benign. NECK: No neck rigidity was observed. NEUROLOGICAL EXAMINATION: MENTAL STATUS EXAMINATION: She was comatose and only responded to deep pain with decerebration in the upper extremities and no response in the lower extremities. Further mental status testing was impossible. SPEECH: Could not be tested. LANGUAGE: Could not be tested. CRANIAL NERVE EXAMINATION: II: She did not blink to threat. III, IV, : External ocular movements were present, but restricted on oculocephalic maneuvers. The right pupil was 2.5 mm and left pupil 3.5 mm, and reactive to light in a sluggish manner. V & VII: The corneal reflexes were absent. VIII: She did not respond to sounds and had no nystagmus. IX & X: The gag reflex was absent on manipulating the endotracheal tube. XI: The sternocleidomastoids and trapezii did not function. XII: Could not be tested adequately. MOTOR SYSTEM: The tone was diminished in all four extremities. Examination of muscle mass revealed generalized muscle wasting and she had bilateral ankle cord contractures. Examination of power was impossible to perform because even on applying deep painful stimuli, no purposeful movements were seen. SENSORY EXAMINATION: She did not respond even to deep painful stimuli other than decerebration in the upper extremities. REFLEXES: 0 at the biceps, triceps, brachioradialis, knees, and ankles. The plantar responses were mute bilaterally. COORDINATION, STANCE & GAIT: Could not be tested. Impression/Recommendations Diagnostic Impression 1. Ms. Christy Reeves is a 57-year-old, lady, of unknown handedness, who does have past history of respiratory failure and a seizure disorder associated with significant anoxic ischemic brain injury, who lives in a long term and is fed through a percutaneous gastrostomy. She was found unresponsive in her long term. When the paramedics got to her, she was in full arrest. By the time she could be resuscitated by the paramedics and then in the hospital, it took approximately 20 minutes to obtain pulse and blood pressure. She has been comatose ever since. 2. She continues to be comatose. She has exhibited no improvement in her neurologic function. She is hemodynamically stable. She has exhibited no seizures or seizure-like phenomena. She is still intubated and artificially ventilated. She has not regained consciousness > 5 days post her anoxic/ ischemic event. Plans are to place a tracheostomy. 3. On neurological examination, at this time, she is comatose and does not respond even to deep painful stimuli other than decerebration in the upper extremities. She does have eye movements on oculocephalic maneuvers and her pupils react sluggishly to light. She does have an anisocoria with the right pupil being 2.5 mm and the left pupil 3.5 mm. She does not demonstrate any other signs of cortical or brainstem function. She is areflexic. 4. Laboratory data on my initial evaluation revealed that her WBC count was elevated to 25,600. She was anemic with hemoglobin of 11.1 G. Her arterial blood gas when she came to the hospital revealed pH of 7.06, pCO2 of 90, pO2 of 51. Her chemistry panel on admission revealed glucose of 452, AST elevated at 63, ALT elevated at 110, alkaline phosphatase elevated at 205, and a low albumin of 2.0. [place] 4798. Her urinalysis revealed 3+ leukocyte esterase, 5-10 red blood cells, and 40-60 white blood cells per high-power field. 5. The EEG done on 03/13/18 revealed a burst suppression pattern which is indicative of severe anoxic/ischemic brain damage. 6. The CT of the brain done on 03/16/18 revealed signs of severe anoxic ischemic brain injury. 7. The patient's history, neurological examination, EEG, CT of brain, and laboratory data are most compatible with a prior cerebral injury related to respiratory failure and seizures, and then a cardiopulmonary arrest on the day of admission associated with an ongoing infectious process with a severe brain injury of an anoxic/ischemic type. 8. The prognosis for recovery of brain function is dismal because of the underlying pre-existing structural brain disease, the superimposed recent anoxic ischemic cerebral insult with severe structural brain damage, and her not regaining consciousness > 5 days following the anoxic/ischemic event. Recommendations 1. Continue present management. 2. Continue treatment of the patient's seizures with the present therapeutic regimen. 3. In light of her poor prognosis re-consider how intensive her care should be. Hayde Andre M.D., M.S.P.HAYDE OLIVERA Mar 17, 2018 14:37
[2018-03-17] MEDS: Dyna-Hex 2% Top Sol 2oz TOPIC SCH (19:41)
[2018-03-17] MEDS: Norepinephrine Bitartrate 8 MG in D5W 500ml 550 ML IV SCH (20:59)
[2018-03-18] VITALS (36 sets, daily range): BP systolic 82–157; BP diastolic 50–100
[2018-03-18] MEDS: Lacosamide 100 MG TABLET ORAL SCH ×3 (06:04→21:39)
[2018-03-18] MEDS: Meropenem 1 GM in NS 55 ML IVPB SCH ×3 (06:04→21:39)
[2018-03-18] MEDS: NovoLOG Insulin Flexpen SUBQ SCH ×4 (06:06→20:50)
[2018-03-18] MEDS: Heparin 5000 units/ml inj SUBQ SCH ×2 (08:37→20:50)
--- NOTE | 2018-03-18 09:38 | General Progress Note ---
Progress Note Progress Note Surgery: had to reschedule trach for tuesday given operating room schedule and emergencies. plan for trach tuesday as scheduled. Seun Yen Mar 18, 2018 09:38
--- NOTE | 2018-03-18 10:29 | Critical Care Progress Note ---
Assessment/Plan Assessment/Plan Chronic respiratory failure, now with acute respiratory failure S/p Cardiorespiratory arrest, possible sepsis UTI Chronic muscular weakness H/o seizures severe protein calorie malnutrition PLAN monitor as is ID noted feeds vent antibiotics monitor cultures support trach delayed monitor wbc monitor pressors stabilize and dc to subacute when stable ICU management as is Critical Care - Subjective ROS Limited/Unobtainable: Yes Condition: critical EKG Rhythm: Sinus Rhythm Residuals: minimal Tube Feeding Tolerated: yes I&O: Intake and Output 03/17/18 03/18/18 19:00 07:00 Intake Total 515.44 ml 1169.18 ml Output Total 1045 ml 880 ml Balance -529.56 ml 289.18 ml IV Total 455.44 ml 609.18 ml Tube Feeding 60 ml 500 ml Other 60 ml Output Urine Total 1045 ml 880 ml Critical Care - Objective ET-Tube: 6.0 ET Position: 22 Last 24 Hour Vital Signs Date Time Temp Pulse Resp B/P (MAP) Pulse Ox O2 Delivery O2 Flow Rate FiO2 03/18/18 10:00 124 18 127/67 (87) 95 03/18/18 09:28 124 18 100 03/18/18 09:00 124 17 135/70 (91) 95 03/18/18 08:00 99.2 122 17 130/70 (90) 94 99.2 03/18/18 07:19 113 16 100 03/18/18 07:00 118 15 116/64 (81) 95 03/18/18 06:00 107 15 103/60 (74) 94 03/18/18 05:15 121 16 100 03/18/18 05:00 115 16 141/100 (114) 94 03/18/18 04:00 100 03/18/18 04:00 Mechanical Ventilator 03/18/18 04:00 110 03/18/18 04:00 99.1 117 16 140/75 (96) 94 99.1 03/18/18 03:05 116 17 100 03/18/18 03:00 111 16 84/52 (63) 94 03/18/18 02:00 109 16 120/63 (82) 95 03/18/18 01:11 103 16 100 03/18/18 01:00 103 16 90/51 (64) 96 03/18/18 00:00 111 16 108/84 (92) 96 03/18/18 00:00 Mechanical Ventilator 03/18/18 00:00 106 03/18/18 00:00 100 03/17/18 23:03 106 17 100 03/17/18 23:00 99.3 109 21 103/65 (78) 93 99.3 03/17/18 22:00 111 22 119/71 (87) 93 03/17/18 21:11 117 18 100 03/17/18 21:00 116 27 117/65 (82) 92 03/17/18 20:59 118/75 03/17/18 20:00 114 03/17/18 20:00 Mechanical Ventilator 03/17/18 20:00 100 03/17/18 20:00 114 17 135/67 (89) 96 03/17/18 19:30 99.4 114 17 120/67 (84) 96 99.4 03/17/18 19:01 107 17 100 03/17/18 19:00 111 18 123/68 (86) 95 03/17/18 18:00 128 17 126/61 (82) 99 03/17/18 17:00 105 17 128/79 (95) 99 03/17/18 16:44 101 16 100 03/17/18 16:00 Mechanical Ventilator 03/17/18 16:00 100 03/17/18 16:00 111 03/17/18 16:00 98.4 111 16 120/67 (84) 97 98.4 03/17/18 15:07 111 17 100 03/17/18 15:00 112 17 143/81 (101) 97 03/17/18 14:00 111 18 101/58 (72) 98 03/17/18 14:00 111 17 126/78 (94) 96 03/17/18 13:00 101 18 128/69 (88) 96 03/17/18 12:46 102 16 100 03/17/18 12:00 102 03/17/18 12:00 Mechanical Ventilator 03/17/18 12:00 100 03/17/18 12:00 102 18 92/56 (68) 94 03/17/18 11:00 108 17 114/64 (81) 94 03/17/18 10:57 125 20 100 Labs: Labs Test 03/16/18 05:57 03/17/18 04:00 Sodium Level 143 MMOL/L (136-145) 144 MMOL/L (136-145) Potassium Level 3.3 MMOL/L (3.5-5.1) 3.6 MMOL/L (3.5-5.1) Chloride Level 107 MMOL/L (98-107) 107 MMOL/L (98-107) Carbon Dioxide Level 32 MMOL/L (21-32) 34 MMOL/L (21-32) Anion Gap 4 mmol/L (5-15) 3 mmol/L (5-15) Blood Urea Nitrogen 11 mg/dL (7-18) 13 mg/dL (7-18) Creatinine 0.4 MG/DL (0.55-1.30) 0.4 MG/DL (0.55-1.30) Estimat Glomerular Filtration Rate > 60 mL/min (>60) > 60 mL/min (>60) Glucose Level 154 MG/DL (74-106) 137 MG/DL (74-106) Calcium Level 8.2 MG/DL (8.5-10.1) 8.4 MG/DL (8.5-10.1) White Blood Count 15.9 K/UL (4.8-10.8) Red Blood Count 2.96 M/UL (4.20-5.40) Hemoglobin 8.6 G/DL (12.0-16.0) Hematocrit 27.1 % (37.0-47.0) Mean Corpuscular Volume 91 FL (80-99) Mean Corpuscular Hemoglobin 28.9 PG (27.0-31.0) Mean Corpuscular Hemoglobin Concent 31.6 G/DL (32.0-36.0) Red Cell Distribution Width 11.9 % (11.6-14.8) Platelet Count 187 K/UL (150-450) Mean Platelet Volume 8.4 FL (6.5-10.1) Neutrophils (%) (Auto) % (45.0-75.0) Lymphocytes (%) (Auto) % (20.0-45.0) Monocytes (%) (Auto) % (1.0-10.0) Eosinophils (%) (Auto) % (0.0-3.0) Basophils (%) (Auto) % (0.0-2.0) Differential Total Cells Counted 100 Neutrophils % (Manual) 88 % (45-75) Lymphocytes % (Manual) 6 % (20-45) Monocytes % (Manual) 4 % (1-10) Eosinophils % (Manual) 1 % (0-3) Basophils % (Manual) 0 % (0-2) Band Neutrophils 1 % (0-8) Platelet Estimate Adequate Platelet Morphology Normal Hypochromasia 1+ Stomatocytes Occasional Prothrombin Time 10.8 SEC (9.30-11.50) Prothromb Time International Ratio 1.0 (0.9-1.1) Activated Partial Thromboplast Time 27 SEC (23-33) Total Bilirubin 0.4 MG/DL (0.2-1.0) Aspartate Amino Transf (AST/SGOT) 47 U/L (15-37) Alanine Aminotransferase (ALT/SGPT) 29 U/L (12-78) Alkaline Phosphatase 106 U/L (46-116) Total Protein 5.5 G/DL (6.4-8.2) Albumin 1.4 G/DL (3.4-5.0) Globulin 4.1 g/dL Albumin/Globulin Ratio 0.3 (1.0-2.7) Objective: WDWN intubated coars breath sounds bilaterally without rhonchi or wheeze [id number] without MRG NABS nontender no HSM; GT no CCE nonfocal and withdrawn Accucheck: 138 Esvin Cortez MD Mar 18, 2018 10:29
--- NOTE | 2018-03-18 14:08 | Neurology Progress Note ---
Interim History Interim History Interim History Ms. Reeves continues to be comatose. She has exhibited no improvement in her neurologic function. She is hemodynamically stable. She has exhibited no seizures or seizure-like phenomena. She is still intubated and artificially ventilated. She has not regained consciousness > 6 days post her anoxic/ischemic event. Plans are to place a tracheostomy. Review of Systems Neuro Review of Systems Unable to obtain. Objective Physical Exam Last Vital Signs Date Time Temp Pulse Resp B/P (MAP) Pulse Ox O2 Delivery O2 Flow Rate FiO2 03/18/18 13:00 122 18 119/63 (81) 90 03/18/18 12:44 100 03/18/18 12:00 99.8 99.8 03/18/18 12:00 Mechanical Ventilator 03/15/18 08:00 15.0 Neurologic Exam Objective PHYSICAL EXAMINATION: GENERAL: She is a well-developed, but chronically ill-looking lady, lying in an ICU bed exhibiting bilateral ankle cord contractures. HEAD: Normocephalic and atraumatic. EENT: Examination benign. NECK: No neck rigidity was observed. NEUROLOGICAL EXAMINATION: MENTAL STATUS EXAMINATION: She was comatose and did not respond even to deep pain. Further mental status testing was impossible. SPEECH: Could not be tested. LANGUAGE: Could not be tested. CRANIAL NERVE EXAMINATION: II: She did not blink to threat. III, IV, : External ocular movements were present, but restricted on oculocephalic maneuvers. The right pupil was 2.5 mm and left pupil 3.5 mm, and reactive to light in a sluggish manner. V & VII: The corneal reflexes were absent. VIII: She did not respond to sounds and had no nystagmus. IX & X: The gag reflex was absent on manipulating the endotracheal tube. XI: The sternocleidomastoids and trapezii did not function. XII: Could not be tested adequately. MOTOR SYSTEM: The tone was diminished in all four extremities. Examination of muscle mass revealed generalized muscle wasting and she had bilateral ankle cord contractures. Examination of power was impossible to perform because even on applying deep painful stimuli no movements were seen. SENSORY EXAMINATION: She did not respond even to deep painful stimuli. REFLEXES: 0 at the biceps, triceps, brachioradialis, knees, and ankles. The plantar responses were mute bilaterally. COORDINATION, STANCE & GAIT: Could not be tested. Impression/Recommendations Diagnostic Impression 1. Ms. Christy Reeves is a 57-year-old, lady, of unknown handedness, who does have past history of respiratory failure and a seizure disorder associated with significant anoxic ischemic brain injury, who lives in a long-term and is fed through a percutaneous gastrostomy. She was found unresponsive in her long-term. When the paramedics got to her, she was in full arrest. By the time she could be resuscitated by the paramedics and then in the hospital, it took approximately 20 minutes to obtain pulse and blood pressure. She has been comatose ever since. 2. She continues to be comatose. She has exhibited no improvement in her neurologic function. She is hemodynamically stable. She has exhibited no seizures or seizure-like phenomena. She is still intubated and artificially ventilated. She has not regained consciousness > 6 days post her anoxic/ ischemic event. Plans are to place a tracheostomy. 3. On neurological examination, at this time, she is comatose and does not respond even to deep painful stimuli. She does have eye movements on oculocephalic maneuvers and her pupils react sluggishly to light. She does have an anisocoria with the right pupil being 2.5 mm and the left pupil 3.5 mm. She does not demonstrate any other signs of cortical or brainstem function. She is areflexic. 4. Laboratory data on my initial evaluation revealed that her WBC count was elevated to 25,600. She was anemic with hemoglobin of 11.1 G. Her arterial blood gas when she came to the hospital revealed pH of 7.06, pCO2 of 90, pO2 of 51. Her chemistry panel on admission revealed glucose of 452, AST elevated at 63, ALT elevated at 110, alkaline phosphatase elevated at 205, and a low albumin of 2.0. Her B[place] 4798. Her urinalysis revealed 3+ leukocyte esterase, 5-10 red blood cells, and 40-60 white blood cells per high-power field. 5. The EEG done on 03/13/18 revealed a burst suppression pattern which is indicative of severe anoxic/ischemic brain damage. 6. The CT of the brain done on 03/16/18 revealed signs of severe anoxic ischemic brain injury. 7. The patient's history, neurological examination, EEG, CT of brain, and laboratory data are most compatible with a prior cerebral injury related to respiratory failure and seizures, and then a cardiopulmonary arrest on the day of admission associated with an ongoing infectious process with a severe brain injury of an anoxic/ischemic type. 8. The prognosis for recovery of brain function is dismal because of the underlying pre-existing structural brain disease, the superimposed recent anoxic ischemic cerebral insult with severe structural brain damage, and her not regaining consciousness > 6 days following the anoxic/ischemic event. Recommendations 1. Continue present management. 2. Continue treatment of the patient's seizures with the present therapeutic regimen. 3. In light of her poor prognosis re-consider how intensive her care should be. Hayde Andre M.D., M.S.P.H. HAYDE ANDRE Mar 18, 2018 14:08
[2018-03-18] MEDS ORDERED: Tubing IV Secondary IV ONE (16:23)
[2018-03-18] MEDS ORDERED: NS 275ml ONE (16:23)
[2018-03-18] MEDS: Dyna-Hex 2% Top Sol 2oz TOPIC SCH (20:09)
--- NOTE | 2018-03-18 20:46 | Diagnostic Imaging Report ---
EXAM: XR Chest, 1 View CLINICAL HISTORY: SOB TECHNIQUE: Frontal view of the chest. COMPARISON: 03/15/2018. FINDINGS/IMPRESSION: Mildly worsened [id number]-left pulmonary edema/infiltrates. Possible right pleural effusion. No other significant change.
[2018-03-18] MEDS: Norepinephrine Bitartrate 8 MG in D5W 500ml 550 ML IV SCH (22:08)
[2018-03-19] VITALS (30 sets, daily range): BP systolic 84–153; BP diastolic 44–102
[2018-03-19] MEDS: NovoLOG Insulin Flexpen SUBQ SCH ×2 (05:33→11:43)
[2018-03-19] MEDS: Meropenem 1 GM in NS 55 ML IVPB SCH (05:39)
[2018-03-19] MEDS: Lacosamide 100 MG TABLET ORAL SCH (05:39)
[2018-03-19 05:46] LABS: HEMATOCRIT 24.2 % (37.0-47.0); HEMOGLOBIN 7.6 G/DL (12.0-16.0); MEAN CORPUSCULAR VOLUME 93 FL (80-99); PLATELET COUNT 270 K/UL (150-450); RED CELL DISTRIBUTION WIDTH 12.4 % (11.6-14.8)
[2018-03-19 07:35] LABS: ALANINE AMINOTRANSFERASE 32 U/L (12-78); ALBUMIN 1.4 G/DL (3.4-5.0); ALBUMIN/GLOBULIN RATIO 0.3 (1.0-2.7); ALKALINE PHOSPHATASE 94 U/L (46-116); ANION GAP 3 mmol/L (5-15); ASPARTATE AMINO TRANSFERASE 40 U/L (15-37); BILIRUBIN,TOTAL 0.2 MG/DL (0.2-1.0); BLOOD UREA NITROGEN 16 mg/dL (7-18); CALCIUM 8.2 MG/DL (8.5-10.1); CARBON DIOXIDE 35 MMOL/L (21-32); CHLORIDE 110 MMOL/L (98-107); CREATININE 0.5 MG/DL (0.55-1.30); POTASSIUM 3.6 MMOL/L (3.5-5.1); SODIUM 148 MMOL/L (136-145)
[2018-03-19] MEDS: Heparin 5000 units/ml inj SUBQ SCH (08:23)
[2018-03-19] MEDS ORDERED: Minocycline HCl 50mg cap ORAL SCH (09:15)
--- NOTE | 2018-03-19 09:15 | Infectious Diseases Prog Note ---
Assessment/Plan Assessment/Plan A 1 E. .coli ESBL UTI 2. pneumonia with Acinetobacter & Providencia 3. respiratory failure 4. diabetes mellitus 5. seizures 6. Anoxic encephalopathy 7. MRSA & VRE colonization P 1. continue Meropenem & add Minocycline 2. Poor prognosis Subjective ROS Limited/Unobtainable: Yes Constitutional: Reports: fever, other - Dsbm=119.3 Respiratory: Reports: other - desaturatres in flat position Allergies: Coded Allergies: No Known Allergies (Unverified , 03/12/18) Objective Vital Signs Last 24 Hour Vital Signs Date Time Temp Pulse Resp B/P (MAP) Pulse Ox O2 Delivery O2 Flow Rate FiO2 03/19/18 08:19 100.3 03/19/18 07:29 115 16 100 03/19/18 07:00 109 19 122/61 (81) 100 03/19/18 06:30 100 16 93/53 (66) 100 03/19/18 06:00 102 16 108/59 (75) 100 03/19/18 05:20 101 16 100 03/19/18 05:00 102 16 100/56 (71) 99 03/19/18 04:30 104 16 105/58 (74) 99 03/19/18 04:00 Mechanical Ventilator 03/19/18 04:00 98.1 106 16 98/53 (68) 99 98.1 03/19/18 04:00 106 03/19/18 04:00 100 03/19/18 03:30 117 16 132/67 (88) 96 03/19/18 03:11 117 16 100 03/19/18 03:00 116 16 122/62 (82) 98 03/19/18 02:30 114 16 90/49 (63) 97 03/19/18 02:00 114 16 94/49 (64) 97 03/19/18 01:30 113 16 109/55 (73) 97 03/19/18 01:00 115 16 122/64 (83) 97 03/19/18 00:55 109 16 100 03/19/18 00:30 109 16 84/49 (61) 97 03/19/18 00:00 100 03/19/18 00:00 124 03/19/18 00:00 Mechanical Ventilator 03/19/18 00:00 109 17 89/49 (62) 97 9/15/18 23:30 113 17 115/78 (90) 97 18 23:15 111 17 90/58 (69) 97 03/18/18 23:15 112 16 100 03/18/18 23:00 99.1 109 17 94/60 (71) 97 99.1 18 22:45 109 17 98/55 (69) 97 03/18/18 22:30 105 17 90/57 (68) 97 03/18/18 22:15 111 17 82/50 (61) 97 03/18/18 22:08 116/73 03/18/18 22:00 115 17 99/59 (72) 97 03/18/18 21:45 119 17 116/73 (87) 97 03/18/18 21:30 120 17 118/63 (81) 97 03/18/18 21:15 123 17 115/65 (82) 96 03/18/18 21:05 123 18 100 03/18/18 21:00 123 17 111/64 (80) 93 03/18/18 20:45 121 18 120/64 (82) 95 03/18/18 20:30 122 23 131/77 (95) 94 03/18/18 20:15 127 30 126/75 (92) 98 03/18/18 20:00 125 30 157/66 (96) 98 03/18/18 20:00 Mechanical Ventilator 03/18/18 20:00 100 03/18/18 20:00 120 03/18/18 19:45 123 29 153/80 (104) 98 03/18/18 19:30 119 26 130/89 (103) 99 03/18/18 19:15 99.3 117 21 143/97 (112) 99 99.3 03/18/18 19:07 97 16 100 03/18/18 19:00 143/97 03/18/18 19:00 98 16 111/58 (75) 100 18 18:45 126/62 03/18/18 18:30 113/59 18 18:15 81/47 18 18:00 111 16 85/55 (65) 98 18 18:00 85/55 03/18/18 17:10 127 16 100 18 16:00 126 9/15/18 16:00 100 03/18/18 16:00 Mechanical Ventilator 03/18/18 15:41 126 17 100 03/18/18 15:00 99.8 03/18/18 15:00 124 18 123/65 (84) 90 03/18/18 14:47 99.8 03/18/18 14:00 124 18 139/63 (88) 90 03/18/18 13:00 122 18 119/63 (81) 90 03/18/18 12:44 123 17 100 03/18/18 12:00 99.8 123 17 97/60 (72) 94 99.8 03/18/18 12:00 116 03/18/18 12:00 Mechanical Ventilator 03/18/18 12:00 100 03/18/18 11:21 125 19 100 03/18/18 11:00 122 18 119/63 (81) 90 03/18/18 10:00 124 18 127/67 (87) 95 03/18/18 09:28 124 18 100 Height (Feet): 5 Height (Inches): 1.00 Weight (Pounds): 128 HEENT: other - unequal pupils Respiratory/Chest: lungs clear, other - on ventilator Cardiovascular: tachycardia, other - RIJ line Abdomen: soft, non tender, other - GT feeding Extremities: other - edema Neurologic/Psychiatric: other - Comatose, no gag reflex Laboratory Tests Test 03/18/18 18:02 03/19/18 04:00 Arterial Blood pH 7.365 (7.350-7.450) Arterial Blood Partial Pressure CO2 57.5 mmHg (35.0-45.0) *H Arterial Blood Partial Pressure O2 91.1 mmHg (75.0-100.0) Arterial Blood HCO3 32.3 mmol/L (22.0-26.0) H Arterial Blood Oxygen Saturation 96.1 % (92.0-98.0) Arterial Blood Base Excess 6.0 Akira Test Positive White Blood Count 14.0 K/UL (4.8-10.8) H Red Blood Count 2.60 M/UL (4.20-5.40) L Hemoglobin 7.6 G/DL (12.0-16.0) L Hematocrit 24.2 % (37.0-47.0) L Mean Corpuscular Volume 93 FL (80-99) Mean Corpuscular Hemoglobin 29.3 PG (27.0-31.0) Mean Corpuscular Hemoglobin Concent 31.4 G/DL (32.0-36.0) L Red Cell Distribution Width 12.4 % (11.6-14.8) Platelet Count 270 K/UL (150-450) Mean Platelet Volume 7.5 FL (6.5-10.1) Neutrophils (%) (Auto) % (45.0-75.0) Lymphocytes (%) (Auto) % (20.0-45.0) Monocytes (%) (Auto) % (1.0-10.0) Eosinophils (%) (Auto) % (0.0-3.0) Basophils (%) (Auto) % (0.0-2.0) Differential Total Cells Counted 100 Neutrophils % (Manual) 88 % (45-75) H Lymphocytes % (Manual) 4 % (20-45) L Monocytes % (Manual) 4 % (1-10) Eosinophils % (Manual) 0 % (0-3) Basophils % (Manual) 0 % (0-2) Band Neutrophils 4 % (0-8) Platelet Estimate Adequate Platelet Morphology Normal Polychromasia 1+ Hypochromasia 1+ Sodium Level 148 MMOL/L (136-145) H Potassium Level 3.6 MMOL/L (3.5-5.1) Chloride Level 110 MMOL/L (98-107) H Carbon Dioxide Level 35 MMOL/L (21-32) H Anion Gap 3 mmol/L (5-15) L Blood Urea Nitrogen 16 mg/dL (7-18) Creatinine 0.5 MG/DL (0.55-1.30) L Estimat Glomerular Filtration Rate > 60 mL/min (>60) Glucose Level 154 MG/DL (74-106) H Calcium Level 8.2 MG/DL (8.5-10.1) L Total Bilirubin 0.2 MG/DL (0.2-1.0) Aspartate Amino Transf (AST/SGOT) 40 U/L (15-37) H Alanine Aminotransferase (ALT/SGPT) 32 U/L (12-78) Alkaline Phosphatase 94 U/L (46-116) Total Protein 5.4 G/DL (6.4-8.2) L Albumin 1.4 G/DL (3.4-5.0) L Globulin 4.0 g/dL Albumin/Globulin Ratio 0.3 (1.0-2.7) L Current Medications Medications (Trade) Dose Ordered Sig/Emily Route PRN Reason Start Time Stop Time Status Last Admin Dose Admin Acetaminophen (Tylenol) 650 mg Q6H PRN ORAL Mild Pain/Temp > 100.5 03/13/18 22:45 04/12/18 22:44 03/19/18 08:19 Chlorhexidine Gluconate (Radha-Hex 2%) 1 applic DAILY@2000 TOPIC 03/13/18 20:00 04/12/18 19:59 03/18/18 20:09 Dextrose (Dextrose 50%) 25 ml STAT PRN IV Hypoglycemia 03/12/18 20:00 04/11/18 19:59 Dextrose (Dextrose 50%) 50 ml STAT PRN IV Hypoglycemia 03/12/18 20:00 04/11/18 19:59 Famotidine (Pepcid I.v.) 20 mg Q12HR IVP 03/12/18 21:00 04/11/18 20:59 03/19/18 08:19 Heparin Sodium (Porcine) (Heparin 5000 units/ml) 5,000 units EVERY 12 HOURS SUBQ 03/12/18 21:00 04/11/18 20:59 03/19/18 08:23 Insulin Aspart (NovoLOG) BEFORE MEALS AND HS SUBQ 03/12/18 21:00 04/11/18 20:59 03/19/18 05:33 Lacosamide (Vimpat) 200 mg Q8HR ORAL 03/12/18 22:00 04/11/18 21:59 03/19/18 05:39 Levetiracetam (Keppra) 1,500 mg BID GT 03/12/18 20:00 04/11/18 19:59 03/19/18 08:19 Lorazepam (Ativan 2mg/ml 1ml) 2 mg Q2H PRN IV For Seizures 03/12/18 18:00 03/19/18 17:59 Meropenem 1 gm/ Sodium Chloride 55 ml @ 110 mls/hr Q8HR IVPB 03/17/18 14:00 03/22/18 13:59 03/19/18 05:39 Norepinephrine Bitartrate 8 mg/ Dextrose 558 ml @ 0 mls/hr Q24H IV 03/12/18 20:45 04/11/18 20:44 03/18/18 22:08 Sodium Chloride 1,000 ml @ 50 mls/hr Q20H IV 03/14/18 18:00 04/11/18 17:59 03/19/18 05:39 Del Wakefield MD Mar 19, 2018 09:15
--- NOTE | 2018-03-19 11:25 | General Progress Note ---
Progress Note Progress Note Surgery: trach rescheduled and planned for tomorrow. npo p mn consent is in chart Seun Yen Mar 19, 2018 11:25
--- NOTE | 2018-03-19 12:47 | Neurology Progress Note ---
Interim History Interim History Interim History Ms. Reeves continues to be comatose. She has exhibited no improvement in her neurologic function. She is hemodynamically stable. She however has had brief periods of desaturation. She has exhibited no seizures or seizure-like phenomena. She is still intubated and artificially ventilated. She has not regained consciousness > 7 days post her anoxic/ischemic event. Plans are to place a tracheostomy. Review of Systems Neuro Review of Systems Unable to obtain. Objective Physical Exam Last Vital Signs Date Time Temp Pulse Resp B/P (MAP) Pulse Ox O2 Delivery O2 Flow Rate FiO2 03/19/18 11:15 96 16 100 03/19/18 11:00 123/74 (90) 93 03/19/18 08:50 99.9 03/19/18 08:00 Mechanical Ventilator 03/15/18 08:00 15.0 Laboratory Tests Test 03/18/18 18:02 03/19/18 04:00 Arterial Blood pH 7.365 (7.350-7.450) Arterial Blood Partial Pressure CO2 57.5 mmHg (35.0-45.0) *H Arterial Blood Partial Pressure O2 91.1 mmHg (75.0-100.0) Arterial Blood HCO3 32.3 mmol/L (22.0-26.0) H Arterial Blood Oxygen Saturation 96.1 % (92.0-98.0) Arterial Blood Base Excess 6.0 Akira Test Positive White Blood Count 14.0 K/UL (4.8-10.8) H Red Blood Count 2.60 M/UL (4.20-5.40) L Hemoglobin 7.6 G/DL (12.0-16.0) L Hematocrit 24.2 % (37.0-47.0) L Mean Corpuscular Volume 93 FL (80-99) Mean Corpuscular Hemoglobin 29.3 PG (27.0-31.0) Mean Corpuscular Hemoglobin Concent 31.4 G/DL (32.0-36.0) L Red Cell Distribution Width 12.4 % (11.6-14.8) Platelet Count 270 K/UL (150-450) Mean Platelet Volume 7.5 FL (6.5-10.1) Neutrophils (%) (Auto) % (45.0-75.0) Lymphocytes (%) (Auto) % (20.0-45.0) Monocytes (%) (Auto) % (1.0-10.0) Eosinophils (%) (Auto) % (0.0-3.0) Basophils (%) (Auto) % (0.0-2.0) Differential Total Cells Counted 100 Neutrophils % (Manual) 88 % (45-75) H Lymphocytes % (Manual) 4 % (20-45) L Monocytes % (Manual) 4 % (1-10) Eosinophils % (Manual) 0 % (0-3) Basophils % (Manual) 0 % (0-2) Band Neutrophils 4 % (0-8) Platelet Estimate Adequate Platelet Morphology Normal Polychromasia 1+ Hypochromasia 1+ Sodium Level 148 MMOL/L (136-145) H Potassium Level 3.6 MMOL/L (3.5-5.1) Chloride Level 110 MMOL/L (98-107) H Carbon Dioxide Level 35 MMOL/L (21-32) H Anion Gap 3 mmol/L (5-15) L Blood Urea Nitrogen 16 mg/dL (7-18) Creatinine 0.5 MG/DL (0.55-1.30) L Estimat Glomerular Filtration Rate > 60 mL/min (>60) Glucose Level 154 MG/DL (74-106) H Calcium Level 8.2 MG/DL (8.5-10.1) L Total Bilirubin 0.2 MG/DL (0.2-1.0) Aspartate Amino Transf (AST/SGOT) 40 U/L (15-37) H Alanine Aminotransferase (ALT/SGPT) 32 U/L (12-78) Alkaline Phosphatase 94 U/L (46-116) Total Protein 5.4 G/DL (6.4-8.2) L Albumin 1.4 G/DL (3.4-5.0) L Globulin 4.0 g/dL Albumin/Globulin Ratio 0.3 (1.0-2.7) L Neurologic Exam Objective PHYSICAL EXAMINATION: GENERAL: She is a well-developed, but chronically ill-looking lady, lying in an ICU bed exhibiting bilateral ankle cord contractures. HEAD: Normocephalic and atraumatic. EENT: Examination benign. NECK: No neck rigidity was observed. NEUROLOGICAL EXAMINATION: MENTAL STATUS EXAMINATION: She was comatose and did not respond even to deep pain. Further mental status testing was impossible. SPEECH: Could not be tested. LANGUAGE: Could not be tested. CRANIAL NERVE EXAMINATION: II: She did not blink to threat. III, IV, : External ocular movements were present, but restricted on oculocephalic maneuvers. The right pupil was 2.5 mm and left pupil 3.5 mm, and reactive to light in a sluggish manner. V & VII: The corneal reflexes were inconsistently present. VIII: She did not respond to sounds and had no nystagmus. IX & X: The gag reflex was absent on manipulating the endotracheal tube. XI: The sternocleidomastoids and trapezii did not function. XII: Could not be tested adequately. MOTOR SYSTEM: The tone was diminished in all four extremities. Examination of muscle mass revealed generalized muscle wasting and she had bilateral ankle cord contractures. Examination of power was impossible to perform because even on applying deep painful stimuli no movements were seen. SENSORY EXAMINATION: She did not respond even to deep painful stimuli. REFLEXES: 0 at the biceps, triceps, brachioradialis, knees, and ankles. The plantar responses were mute bilaterally. COORDINATION, STANCE & GAIT: Could not be tested. Impression/Recommendations Diagnostic Impression 1. Ms. Christy Reeves is a 57-year-old, lady, of unknown handedness, who does have past history of respiratory failure and a seizure disorder associated with significant anoxic ischemic brain injury, who lives in a prison and is fed through a percutaneous gastrostomy. She was found unresponsive in her prison. When the paramedics got to her, she was in full arrest. By the time she could be resuscitated by the paramedics and then in the hospital, it took approximately 20 minutes to obtain pulse and blood pressure. She has been comatose ever since. 2. She continues to be comatose. She has exhibited no improvement in her neurologic function. She is hemodynamically stable. She however has had brief periods of desaturation. She has exhibited no seizures or seizure-like phenomena. She is still intubated and artificially ventilated. She has not regained consciousness > 7 days post her anoxic/ischemic event. Plans are to place a tracheostomy. 3. On neurological examination, at this time, she is comatose and does not respond even to deep painful stimuli. She does have eye movements on oculocephalic maneuvers and her pupils react sluggishly to light. She does have an anisocoria with the right pupil being 2.5 mm and the left pupil 3.5 mm. She also has inconsistent corneal reflexes. She does not demonstrate any other signs of cortical or brainstem function. She is areflexic. 4. Laboratory data on my initial evaluation revealed that her WBC count was elevated to 25,600. She was anemic with hemoglobin of 11.1 G. Her arterial blood gas when she came to the hospital revealed pH of 7.06, pCO2 of 90, pO2 of 51. Her chemistry panel on admission revealed glucose of 452, AST elevated at 63, ALT elevated at 110, alkaline phosphatase elevated at 205, and a low albumin of 2.0. [place] 4798. Her urinalysis revealed 3+ leukocyte esterase, 5-10 red blood cells, and 40-60 white blood cells per high-power field. 5. The EEG done on 03/13/18 revealed a burst suppression pattern which is indicative of severe anoxic/ischemic brain damage. 6. The CT of the brain done on 03/16/18 revealed signs of severe anoxic ischemic brain injury. 7. The patient's history, neurological examination, EEG, CT of brain, and laboratory data are most compatible with a prior cerebral injury related to respiratory failure and seizures, and then a cardiopulmonary arrest on the day of admission associated with an ongoing infectious process with a severe brain injury of an anoxic/ischemic type. 8. The prognosis for recovery of brain function is dismal because of the underlying pre-existing structural brain disease, the superimposed recent anoxic ischemic cerebral insult with severe structural brain damage, and her not regaining consciousness > 7 days following the anoxic/ischemic event. Recommendations 1. Continue present management. 2. Continue treatment of the patient's seizures with the present therapeutic regimen. 3. In light of her poor prognosis re-consider how intensive her care should be. Hayde Andre M.D., M.S.P.H. HAYDE ANDRE Mar 19, 2018 12:47
--- NOTE | 2018-03-19 12:50 | Critical Care Progress Note ---
Assessment/Plan Assessment/Plan Chronic respiratory failure, now with acute respiratory failure S/p Cardiorespiratory arrest, possible sepsis UTI Chronic muscular weakness H/o seizures severe protein calorie malnutrition noncardiogenic pulmonary edema PLAN monitor as is ID noted feeds vent antibiotics transfuse lasix monitor cultures support trach delayed but currently not able to undergo surgery monitor wbc monitor pressors d/w family as to code status stabilize and dc to subacute when stable ICU management as is Critical Care - Subjective Interval Events: doing poorly overnight desat now on 100% significant edema on xray hypotensive d/w family as to code status ROS Limited/Unobtainable: Yes Condition: critical I&O: Intake and Output 03/18/18 03/19/18 19:00 07:00 Intake Total 1434.71 ml 1291.46 ml Output Total 840 ml 810 ml Balance 594.71 ml 481.46 ml IV Total 834.71 ml 601.46 ml Tube Feeding 600 ml 600 ml Other 90 ml Output Urine Total 840 ml 810 ml # Bowel Movements 1 Critical Care - Objective ET-Tube: 6.0 ET Position: 22 Last 24 Hour Vital Signs Date Time Temp Pulse Resp B/P (MAP) Pulse Ox O2 Delivery O2 Flow Rate FiO2 03/19/18 12:00 97 16 124/71 (88) 92 03/19/18 11:15 96 16 100 03/19/18 11:00 99 16 123/74 (90) 93 03/19/18 11:00 123/57 03/19/18 10:00 91 17 98/57 (71) 97 03/19/18 10:00 98/57 03/19/18 09:00 105 16 108/58 (75) 99 03/19/18 09:00 108/58 03/19/18 08:57 104 16 100 03/19/18 08:50 99.9 03/19/18 08:19 100.3 03/19/18 08:00 Mechanical Ventilator 03/19/18 08:00 114 16 120/63 (82) 98 03/19/18 08:00 120/63 03/19/18 08:00 100 03/19/18 08:00 108 03/19/18 07:29 115 16 100 03/19/18 07:00 109 19 122/61 (81) 100 03/19/18 06:30 100 16 93/53 (66) 100 03/19/18 06:00 102 16 108/59 (75) 100 03/19/18 05:20 101 16 100 03/19/18 05:00 102 16 100/56 (71) 99 03/19/18 04:30 104 16 105/58 (74) 99 03/19/18 04:00 Mechanical Ventilator 03/19/18 04:00 98.1 106 16 98/53 (68) 99 98.1 03/19/18 04:00 106 03/19/18 04:00 100 03/19/18 03:30 117 16 132/67 (88) 96 03/19/18 03:11 117 16 100 03/19/18 03:00 116 16 122/62 (82) 98 03/19/18 02:30 114 16 90/49 (63) 97 03/19/18 02:00 114 16 94/49 (64) 97 03/19/18 01:30 113 16 109/55 (73) 97 03/19/18 01:00 115 16 122/64 (83) 97 03/19/18 00:55 109 16 100 03/19/18 00:30 109 16 84/49 (61) 97 03/19/18 00:00 100 03/19/18 00:00 124 03/19/18 00:00 Mechanical Ventilator 03/19/18 00:00 109 17 89/49 (62) 97 03/18/18 23:30 113 17 115/78 (90) 97 03/18/18 23:15 111 17 90/58 (69) 97 03/18/18 23:15 112 16 100 03/18/18 23:00 99.1 109 17 94/60 (71) 97 99.1 03/18/18 22:45 109 17 98/55 (69) 97 03/18/18 22:30 105 17 90/57 (68) 97 03/18/18 22:15 111 17 82/50 (61) 97 03/18/18 22:08 116/73 03/18/18 22:00 115 17 99/59 (72) 97 03/18/18 21:45 119 17 116/73 (87) 97 03/18/18 21:30 120 17 118/63 (81) 97 03/18/18 21:15 123 17 115/65 (82) 96 03/18/18 21:05 123 18 100 03/18/18 21:00 123 17 111/64 (80) 93 03/18/18 20:45 121 18 120/64 (82) 95 03/18/18 20:30 122 23 131/77 (95) 94 03/18/18 20:15 127 30 126/75 (92) 98 03/18/18 20:00 125 30 157/66 (96) 98 03/18/18 20:00 Mechanical Ventilator 03/18/18 20:00 100 03/18/18 20:00 120 03/18/18 19:45 123 29 153/80 (104) 98 03/18/18 19:30 119 26 130/89 (103) 99 03/18/18 19:15 99.3 117 21 143/97 (112) 99 99.3 03/18/18 19:07 97 16 100 03/18/18 19:00 143/97 03/18/18 19:00 98 16 111/58 (75) 100 03/18/18 18:45 126/62 03/18/18 18:30 113/59 03/18/18 18:15 81/47 03/18/18 18:00 111 16 85/55 (65) 98 03/18/18 18:00 85/55 03/18/18 17:10 127 16 100 03/18/18 16:00 126 03/18/18 16:00 100 03/18/18 16:00 Mechanical Ventilator 03/18/18 15:41 126 17 100 03/18/18 15:00 124 18 123/65 (84) 90 03/18/18 14:47 99.8 03/18/18 14:00 124 18 139/63 (88) 90 03/18/18 13:00 122 18 119/63 (81) 90 Labs: Labs Test 03/17/18 04:00 03/18/18 18:02 03/19/18 04:00 White Blood Count 15.9 K/UL (4.8-10.8) 14.0 K/UL (4.8-10.8) Red Blood Count 2.96 M/UL (4.20-5.40) 2.60 M/UL (4.20-5.40) Hemoglobin 8.6 G/DL (12.0-16.0) 7.6 G/DL (12.0-16.0) Hematocrit 27.1 % (37.0-47.0) 24.2 % (37.0-47.0) Mean Corpuscular Volume 91 FL (80-99) 93 FL (80-99) Mean Corpuscular Hemoglobin 28.9 PG (27.0-31.0) 29.3 PG (27.0-31.0) Mean Corpuscular Hemoglobin Concent 31.6 G/DL (32.0-36.0) 31.4 G/DL (32.0-36.0) Red Cell Distribution Width 11.9 % (11.6-14.8) 12.4 % (11.6-14.8) Platelet Count 187 K/UL (150-450) 270 K/UL (150-450) Mean Platelet Volume 8.4 FL (6.5-10.1) 7.5 FL (6.5-10.1) Neutrophils (%) (Auto) % (45.0-75.0) % (45.0-75.0) Lymphocytes (%) (Auto) % (20.0-45.0) % (20.0-45.0) Monocytes (%) (Auto) % (1.0-10.0) % (1.0-10.0) Eosinophils (%) (Auto) % (0.0-3.0) % (0.0-3.0) Basophils (%) (Auto) % (0.0-2.0) % (0.0-2.0) Differential Total Cells Counted 100 100 Neutrophils % (Manual) 88 % (45-75) 88 % (45-75) Lymphocytes % (Manual) 6 % (20-45) 4 % (20-45) Monocytes % (Manual) 4 % (1-10) 4 % (1-10) Eosinophils % (Manual) 1 % (0-3) 0 % (0-3) Basophils % (Manual) 0 % (0-2) 0 % (0-2) Band Neutrophils 1 % (0-8) 4 % (0-8) Platelet Estimate Adequate Adequate Platelet Morphology Normal Normal Hypochromasia 1+ 1+ Stomatocytes Occasional Prothrombin Time 10.8 SEC (9.30-11.50) Prothromb Time International Ratio 1.0 (0.9-1.1) Activated Partial Thromboplast Time 27 SEC (23-33) Sodium Level 144 MMOL/L (136-145) 148 MMOL/L (136-145) Potassium Level 3.6 MMOL/L (3.5-5.1) 3.6 MMOL/L (3.5-5.1) Chloride Level 107 MMOL/L (98-107) 110 MMOL/L (98-107) Carbon Dioxide Level 34 MMOL/L (21-32) 35 MMOL/L (21-32) Anion Gap 3 mmol/L (5-15) 3 mmol/L (5-15) Blood Urea Nitrogen 13 mg/dL (7-18) 16 mg/dL (7-18) Creatinine 0.4 MG/DL (0.55-1.30) 0.5 MG/DL (0.55-1.30) Estimat Glomerular Filtration Rate > 60 mL/min (>60) > 60 mL/min (>60) Glucose Level 137 MG/DL (74-106) 154 MG/DL (74-106) Calcium Level 8.4 MG/DL (8.5-10.1) 8.2 MG/DL (8.5-10.1) Total Bilirubin 0.4 MG/DL (0.2-1.0) 0.2 MG/DL (0.2-1.0) Aspartate Amino Transf (AST/SGOT) 47 U/L (15-37) 40 U/L (15-37) Alanine Aminotransferase (ALT/SGPT) 29 U/L (12-78) 32 U/L (12-78) Alkaline Phosphatase 106 U/L (46-116) 94 U/L (46-116) Total Protein 5.5 G/DL (6.4-8.2) 5.4 G/DL (6.4-8.2) Albumin 1.4 G/DL (3.4-5.0) 1.4 G/DL (3.4-5.0) Globulin 4.1 g/dL 4.0 g/dL Albumin/Globulin Ratio 0.3 (1.0-2.7) 0.3 (1.0-2.7) Arterial Blood pH 7.365 (7.350-7.450) Arterial Blood Partial Pressure CO2 57.5 mmHg (35.0-45.0) Arterial Blood Partial Pressure O2 91.1 mmHg (75.0-100.0) Arterial Blood HCO3 32.3 mmol/L (22.0-26.0) Arterial Blood Oxygen Saturation 96.1 % (92.0-98.0) Arterial Blood Base Excess 6.0 Akira Test Positive Polychromasia 1+ Objective: WDWN intubated coars breath sounds bilaterally without rhonchi or wheeze [id number] without MRG NABS nontender no HSM; GT no CCE nonfocal and withdrawn Accucheck: 148 Esvin Cortez MD Mar 19, 2018 12:50
[2018-03-20] VITALS (24 sets, daily range): BP systolic 99–147; BP diastolic 56–97
[2018-03-20 05:24] LABS: HEMATOCRIT 27.5 % (37.0-47.0); MEAN CORPUSCULAR VOLUME 90 FL (80-99); PLATELET COUNT 311 K/UL (150-450); RED BLOOD COUNT 3.04 M/UL (4.20-5.40); RED CELL DISTRIBUTION WIDTH 13.1 % (11.6-14.8); WHITE BLOOD COUNT 13.1 K/UL (4.8-10.8)
[2018-03-20 05:39] LABS: ANION GAP 2 mmol/L (5-15); BLOOD UREA NITROGEN 15 mg/dL (7-18); CALCIUM 8.6 MG/DL (8.5-10.1); CARBON DIOXIDE 36 MMOL/L (21-32); CHLORIDE 111 MMOL/L (98-107); CREATININE 0.4 MG/DL (0.55-1.30); POTASSIUM 3.6 MMOL/L (3.5-5.1); SODIUM 149 MMOL/L (136-145)
--- NOTE | 2018-03-20 10:38 | Infectious Diseases Prog Note ---
"Assessment/Plan Assessment/Plan antibiotics : none A 1. e.coli UTI 2. providencia | acenitobacter pneumonia 3. respiratory failure 4. diabetes mellitus 5. seizures P 1. patient off antibiotics, on comfort measures 2. will sign off Thank you Subjective ROS Limited/Unobtainable: Yes Allergies: Coded Allergies: No Known Allergies (Unverified , 03/12/18) Objective Vital Signs Last 24 Hour Vital Signs Date Time Temp Pulse Resp B/P (MAP) Pulse Ox O2 Delivery O2 Flow Rate FiO2 03/20/18 08:00 Mechanical Ventilator 03/20/18 08:00 100 03/20/18 07:21 106 17 100 03/20/18 07:00 104 16 133/73 (93) 99 03/20/18 06:00 104 16 123/74 (90) 98 03/20/18 05:03 103 17 100 03/20/18 05:00 101 16 131/75 (93) 98 03/20/18 04:00 Mechanical Ventilator 03/20/18 04:00 100 03/20/18 04:00 98.3 96 16 106/68 (81) 97 98.3 03/20/18 04:00 103 03/20/18 03:27 111 17 100 03/20/18 03:00 105 16 124/68 (86) 98 03/20/18 02:00 99 16 112/67 (82) 95 03/20/18 01:10 115 17 100 03/20/18 01:00 106 16 127/69 (88) 95 03/20/18 00:00 110 03/20/18 00:00 Mechanical Ventilator 03/20/18 00:00 98.1 102 16 111/66 (81) 96 98.1 03/20/18 00:00 100 03/19/18 23:11 115 17 100 03/19/18 23:00 110 17 153/92 (112) 84 03/19/18 22:00 106 17 118/63 (81) 95 03/19/18 21:02 117 17 100 03/19/18 21:00 111 20 115/65 (82) 92 03/19/18 20:00 110 03/19/18 20:00 100 03/19/18 20:00 99.3 108 20 94/57 (69) 89 99.3 03/19/18 20:00 Mechanical Ventilator 03/19/18 19:40 118 17 100 03/19/18 19:00 110 20 123/44 (70) 83 03/19/18 18:00 112 18 123/53 (76) 84 03/19/18 17:07 117 21 100 03/19/18 17:00 98.8 115 22 115/80 (92) 82 98.8 03/19/18 16:00 Mechanical Ventilator 03/19/18 16:00 98.8 101 17 104/64 (77) 89 98.8 03/19/18 16:00 110 03/19/18 16:00 100 03/19/18 15:00 96 16 86/55 (65) 86 03/19/18 14:56 98 17 100 03/19/18 14:00 105 17 127/102 (110) 88 03/19/18 13:00 110 33 134/84 (101) 43 03/19/18 12:46 100 17 100 03/19/18 12:00 100 03/19/18 12:00 92 03/19/18 12:00 97 16 124/71 (88) 92 03/19/18 12:00 Mechanical Ventilator 03/19/18 11:15 96 16 100 03/19/18 11:00 99 16 123/74 (90) 93 03/19/18 11:00 123/57 Height (Feet): 5 Height (Inches): 1.00 Weight (Pounds): 128 HEENT: other - intubated Respiratory/Chest: lungs clear Cardiovascular: normal rate, regular rhythm, no gallop/murmur Abdomen: soft, non tender, other - GT Extremities: other - + edema, right IJ catheter Laboratory Tests Test 03/20/18 04:00 03/20/18 07:58 White Blood Count 13.1 K/UL (4.8-10.8) H Red Blood Count 3.04 M/UL (4.20-5.40) L Hemoglobin 9.0 G/DL (12.0-16.0) L Hematocrit 27.5 % (37.0-47.0) L Mean Corpuscular Volume 90 FL (80-99) Mean Corpuscular Hemoglobin 29.5 PG (27.0-31.0) Mean Corpuscular Hemoglobin Concent 32.7 G/DL (32.0-36.0) Red Cell Distribution Width 13.1 % (11.6-14.8) Platelet Count 311 K/UL (150-450) Mean Platelet Volume 7.3 FL (6.5-10.1) Neutrophils (%) (Auto) % (45.0-75.0) Lymphocytes (%) (Auto) % (20.0-45.0) Monocytes (%) (Auto) % (1.0-10.0) Eosinophils (%) (Auto) % (0.0-3.0) Basophils (%) (Auto) % (0.0-2.0) Differential Total Cells Counted 100 Neutrophils % (Manual) 88 % (45-75) H Lymphocytes % (Manual) 7 % (20-45) L Monocytes % (Manual) 5 % (1-10) Eosinophils % (Manual) 0 % (0-3) Basophils % (Manual) 0 % (0-2) Band Neutrophils 0 % (0-8) Platelet Estimate Adequate Platelet Morphology Normal Hypochromasia 2+ Anisocytosis 1+ Sodium Level 149 MMOL/L (136-145) H Potassium Level 3.6 MMOL/L (3.5-5.1) Chloride Level 111 MMOL/L (98-107) H Carbon Dioxide Level 36 MMOL/L (21-32) H Anion Gap 2 mmol/L (5-15) L Blood Urea Nitrogen 15 mg/dL (7-18) Creatinine 0.4 MG/DL (0.55-1.30) L Estimat Glomerular Filtration Rate > 60 mL/min (>60) Glucose Level 115 MG/DL (74-106) H Calcium Level 8.6 MG/DL (8.5-10.1) Arterial Blood pH 7.470 (7.350-7.450) Arterial Blood Partial Pressure CO2 47.2 mmHg (35.0-45.0) H Arterial Blood Partial Pressure O2 69.0 mmHg (75.0-100.0) L Arterial Blood HCO3 33.6 mmol/L (22.0-26.0) H Arterial Blood Oxygen Saturation 93.2 % (92.0-98.0) Arterial Blood Base Excess 8.9 Akira Test Positive Current Medications Medications (Trade) Dose Ordered Sig/Emily Route PRN Reason Start Time Stop Time Status Last Admin Dose Admin Acetaminophen (Tylenol) 650 mg Q6H PRN ORAL Mild Pain/Temp > 100.5 03/13/18 22:45 04/12/18 22:44 03/19/18 08:19 Morphine Sulfate (Morphine Sulfate) 4 mg Q2H PRN IVP For Pain 03/20/18 06:30 03/27/18 06:29 CARLITA FRANKLIN Mar 20, 2018 10:37"
--- NOTE | 2018-03-20 14:17 | Diagnostic Imaging Report ---
Indication: Dyspnea Technique: XRAY Chest 1v Comparison: 03/18/2018 Findings: Patient rotated and leaning to the right. Endotracheal tube tip at the level of the clavicles. Right-sided central line tip the region of the cavoatrial junction. Heart size and mediastinal contours appear stable. There is extensive right-sided interstitial and airspace disease. Left-sided findings are decreased from prior exam. No pneumothorax. Possible small bilateral pleural effusions. Osseous structures stable. Impression: Slight interval improved aeration of the left lung compared to the prior exam. Persistent severe interstitial and airspace disease in the right lung.
--- NOTE | 2018-03-20 18:09 | Critical Care Progress Note ---
Assessment/Plan Assessment/Plan Chronic respiratory failure, now with acute respiratory failure S/p Cardiorespiratory arrest, possible sepsis UTI Chronic muscular weakness H/o seizures severe protein calorie malnutrition noncardiogenic pulmonary edema PLAN terminal care consider dc of vent will update family Critical Care - Subjective Interval Events: family wanted to dc all meds and consider dc of vent DNR I&O: Intake and Output 03/19/18 03/20/18 19:00 07:00 Intake Total 591.85 ml Output Total 880 ml 345 ml Balance -288.15 ml -345 ml IV Total 241.85 ml Tube Feeding 350 ml Output Urine Total 880 ml 345 ml # Bowel Movements 1 Critical Care - Objective ET-Tube: 6.0 ET Position: 22 Last 24 Hour Vital Signs Date Time Temp Pulse Resp B/P (MAP) Pulse Ox O2 Delivery O2 Flow Rate FiO2 03/20/18 17:00 110 16 121/70 (87) 96 03/20/18 16:50 105 16 100 03/20/18 16:00 100 03/20/18 16:00 Mechanical Ventilator 03/20/18 16:00 99.2 111 16 119/71 (87) 97 99.2 03/20/18 15:00 111 24 126/85 (99) 94 03/20/18 14:50 108 16 100 03/20/18 14:00 111 19 147/81 (103) 94 03/20/18 13:40 108 16 100 03/20/18 13:00 106 23 124/77 (93) 96 03/20/18 12:00 99.0 106 24 132/84 (100) 95 99.0 03/20/18 12:00 Mechanical Ventilator 03/20/18 12:00 100 03/20/18 11:00 108 23 133/82 (99) 96 03/20/18 10:40 106 16 100 03/20/18 10:00 107 22 144/97 (113) 96 03/20/18 09:30 104 16 100 03/20/18 09:00 102 18 126/74 (91) 97 03/20/18 08:00 99.0 109 20 143/75 (97) 97 99.0 03/20/18 08:00 Mechanical Ventilator 03/20/18 08:00 100 03/20/18 07:21 106 17 100 03/20/18 07:00 104 16 133/73 (93) 99 03/20/18 06:00 104 16 123/74 (90) 98 03/20/18 05:03 103 17 100 03/20/18 05:00 101 16 131/75 (93) 98 03/20/18 04:00 Mechanical Ventilator 03/20/18 04:00 100 03/20/18 04:00 98.3 96 16 106/68 (81) 97 98.3 03/20/18 04:00 103 03/20/18 03:27 111 17 100 03/20/18 03:00 105 16 124/68 (86) 98 03/20/18 02:00 99 16 112/67 (82) 95 03/20/18 01:10 115 17 100 03/20/18 01:00 106 16 127/69 (88) 95 03/20/18 00:00 110 03/20/18 00:00 Mechanical Ventilator 03/20/18 00:00 98.1 102 16 111/66 (81) 96 98.1 03/20/18 00:00 100 03/19/18 23:11 115 17 100 03/19/18 23:00 110 17 153/92 (112) 84 03/19/18 22:00 106 17 118/63 (81) 95 03/19/18 21:02 117 17 100 03/19/18 21:00 111 20 115/65 (82) 92 03/19/18 20:00 110 03/19/18 20:00 100 03/19/18 20:00 99.3 108 20 94/57 (69) 89 99.3 03/19/18 20:00 Mechanical Ventilator 03/19/18 19:40 118 17 100 03/19/18 19:00 110 20 123/44 (70) 83 Objective: poorly responsive intubated coars3 breath sounds bilaterally without rhonchi or wheeze S1S2RR tachy without MRG NABS nontender no HSM; GT no CCE nonfocal and withdrawn Accucheck: 148 Esvin Cortez MD Mar 20, 2018 18:09
--- NOTE | 2018-03-20 19:23 | Neurology Progress Note ---
Interim History Interim History Interim History Ms. Reeves continues to be comatose. She has exhibited no improvement in her neurologic function. She is hemodynamically stable. She has exhibited no seizures or seizure-like phenomena. She is still intubated and artificially ventilated. She has not regained consciousness > 8 days post her anoxic/ischemic event. Plans are to place a tracheostomy. Review of Systems Neuro Review of Systems Unable to obtain. Objective Physical Exam Last Vital Signs Date Time Temp Pulse Resp B/P (MAP) Pulse Ox O2 Delivery O2 Flow Rate FiO2 03/20/18 19:02 106 16 100 03/20/18 18:00 115/68 (84) 94 03/20/18 16:00 Mechanical Ventilator 03/20/18 16:00 99.2 99.2 03/15/18 08:00 15.0 Laboratory Tests Test 03/20/18 04:00 03/20/18 07:58 White Blood Count 13.1 K/UL (4.8-10.8) H Red Blood Count 3.04 M/UL (4.20-5.40) L Hemoglobin 9.0 G/DL (12.0-16.0) L Hematocrit 27.5 % (37.0-47.0) L Mean Corpuscular Volume 90 FL (80-99) Mean Corpuscular Hemoglobin 29.5 PG (27.0-31.0) Mean Corpuscular Hemoglobin Concent 32.7 G/DL (32.0-36.0) Red Cell Distribution Width 13.1 % (11.6-14.8) Platelet Count 311 K/UL (150-450) Mean Platelet Volume 7.3 FL (6.5-10.1) Neutrophils (%) (Auto) % (45.0-75.0) Lymphocytes (%) (Auto) % (20.0-45.0) Monocytes (%) (Auto) % (1.0-10.0) Eosinophils (%) (Auto) % (0.0-3.0) Basophils (%) (Auto) % (0.0-2.0) Differential Total Cells Counted 100 Neutrophils % (Manual) 88 % (45-75) H Lymphocytes % (Manual) 7 % (20-45) L Monocytes % (Manual) 5 % (1-10) Eosinophils % (Manual) 0 % (0-3) Basophils % (Manual) 0 % (0-2) Band Neutrophils 0 % (0-8) Platelet Estimate Adequate Platelet Morphology Normal Hypochromasia 2+ Anisocytosis 1+ Sodium Level 149 MMOL/L (136-145) H Potassium Level 3.6 MMOL/L (3.5-5.1) Chloride Level 111 MMOL/L (98-107) H Carbon Dioxide Level 36 MMOL/L (21-32) H Anion Gap 2 mmol/L (5-15) L Blood Urea Nitrogen 15 mg/dL (7-18) Creatinine 0.4 MG/DL (0.55-1.30) L Estimat Glomerular Filtration Rate > 60 mL/min (>60) Glucose Level 115 MG/DL (74-106) H Calcium Level 8.6 MG/DL (8.5-10.1) Arterial Blood pH 7.470 (7.350-7.450) Arterial Blood Partial Pressure CO2 47.2 mmHg (35.0-45.0) H Arterial Blood Partial Pressure O2 69.0 mmHg (75.0-100.0) L Arterial Blood HCO3 33.6 mmol/L (22.0-26.0) H Arterial Blood Oxygen Saturation 93.2 % (92.0-98.0) Arterial Blood Base Excess 8.9 Akira Test Positive Neurologic Exam Objective PHYSICAL EXAMINATION: GENERAL: She is a well-developed, but chronically ill-looking lady, lying in an ICU bed exhibiting bilateral ankle cord contractures. HEAD: Normocephalic and atraumatic. EENT: Examination benign. NECK: No neck rigidity was observed. NEUROLOGICAL EXAMINATION: MENTAL STATUS EXAMINATION: She was comatose and only responded to deep pain with decerebration. Further mental status testing was impossible. SPEECH: Could not be tested. LANGUAGE: Could not be tested. CRANIAL NERVE EXAMINATION: II: She did not blink to threat. III, IV, : External ocular movements were present, but restricted on oculocephalic maneuvers. The right pupil was 2.5 mm and left pupil 3.5 mm, and reactive to light in a sluggish manner. V & VII: The corneal reflexes were present. VIII: She did not respond to loud sounds with an eye blink and had no nystagmus. IX & X: The gag reflex was absent on manipulating the endotracheal tube. XI: The sternocleidomastoids and trapezii did not function. XII: Could not be tested adequately. MOTOR SYSTEM: The tone was diminished in all four extremities. Examination of muscle mass revealed generalized muscle wasting and she had bilateral ankle cord contractures. Examination of power was impossible to perform because even on applying deep painful stimuli only decerebrate movements were seen. SENSORY EXAMINATION: She only responded to deep painful stimuli with decerebration. REFLEXES: 0 at the biceps, triceps, brachioradialis, knees, and ankles. The plantar responses were mute bilaterally. COORDINATION, STANCE & GAIT: Could not be tested. Impression/Recommendations Diagnostic Impression 1. Ms. Christy Reeves is a 57-year-old, lady, of unknown handedness, who does have past history of respiratory failure and a seizure disorder associated with significant anoxic ischemic brain injury, who lives in a snf and is fed through a percutaneous gastrostomy. She was found unresponsive in her snf. When the paramedics got to her, she was in full arrest. By the time she could be resuscitated by the paramedics and then in the hospital, it took approximately 20 minutes to obtain pulse and blood pressure. She has been comatose ever since. 2. She continues to be comatose. She has exhibited no improvement in her neurologic function. She is hemodynamically stable. She however has had brief periods of desaturation. She has exhibited no seizures or seizure-like phenomena. She is still intubated and artificially ventilated. She has not regained consciousness > 8 days post her anoxic/ischemic event. Plans are to place a tracheostomy. 3. On neurological examination, at this time, she is comatose and only responde even to deep painful stimuli with decerebration. She does have eye movements on oculocephalic maneuvers and her pupils react sluggishly to light. She does have an anisocoria with the right pupil being 2.5 mm and the left pupil 3.5 mm. She also has corneal reflexes. She exhibits eye blinks on loud auditory stimuli. She does not demonstrate any other signs of cortical or brainstem function. She is areflexic. 4. Laboratory data on my initial evaluation revealed that her WBC count was elevated to 25,600. She was anemic with hemoglobin of 11.1 G. Her arterial blood gas when she came to the hospital revealed pH of 7.06, pCO2 of 90, pO2 of 51. Her chemistry panel on admission revealed glucose of 452, AST elevated at 63, ALT elevated at 110, alkaline phosphatase elevated at 205, and a low albumin of 2.0. Her BNP was elevated to 4798. Her urinalysis revealed 3+ leukocyte esterase, 5-10 red blood cells, and 40-60 white blood cells per high-power field. 5. The EEG done on 03/13/18 revealed a burst suppression pattern which is indicative of severe anoxic/ischemic brain damage. 6. The CT of the brain done on 03/16/18 revealed signs of severe anoxic ischemic brain injury. 7. The patient's history, neurological examination, EEG, CT of brain, and laboratory data are most compatible with a prior cerebral injury related to respiratory failure and seizures, and then a cardiopulmonary arrest on the day of admission associated with an ongoing infectious process with a severe brain injury of an anoxic/ischemic type. 8. The prognosis for recovery of brain function is dismal because of the underlying pre-existing structural brain disease, the superimposed recent anoxic ischemic cerebral insult with severe structural brain damage, and her not regaining consciousness > 8 days following the anoxic/ischemic event. Recommendations 1. Continue present management. 2. Continue treatment of the patient's seizures with the present therapeutic regimen. 3. In light of her poor prognosis re-consider how intensive her care should be. Hayde Andre M.D., M.S.P.HAYDE OLIVERA Mar 20, 2018 19:23
[2018-03-21] VITALS (15 sets, daily range): BP systolic 66–139; BP diastolic 54–98
[2018-03-21] MEDS: Morphine Sulfate 4mg/ml Inj (IV USE ONLY) IVP PRN ×2 (04:13→13:22)
--- NOTE | 2018-03-21 08:26 | Critical Care Progress Note ---
Assessment/Plan Assessment/Plan Chronic respiratory failure, now with acute respiratory failure S/p Cardiorespiratory arrest, possible sepsis UTI Chronic muscular weakness H/o seizures severe protein calorie malnutrition noncardiogenic pulmonary edema PLAN terminal care consider dc of vent- family to decide today will update family d/w nursing Critical Care - Subjective Interval Events: unresponsive ROS Limited/Unobtainable: Yes I&O: Intake and Output 03/20/18 03/21/18 19:00 07:00 Output Total 365 ml 300 ml Balance -365 ml -300 ml Output Urine Total 365 ml 300 ml # Bowel Movements 1 3 Critical Care - Objective ET-Tube: 6.0 ET Position: 22 Last 24 Hour Vital Signs Date Time Temp Pulse Resp B/P (MAP) Pulse Ox O2 Delivery O2 Flow Rate FiO2 03/21/18 07:00 100 16 95/58 (70) 99 03/21/18 06:55 106 16 100 03/21/18 06:00 87 16 103/56 (72) 96 03/21/18 05:00 99.0 100 16 110/61 (77) 95 99.0 03/21/18 04:50 103 16 100 03/21/18 04:43 99.0 03/21/18 04:13 99.5 03/21/18 04:00 100 03/21/18 04:00 Mechanical Ventilator 03/21/18 04:00 106 16 127/73 (91) 96 03/21/18 04:00 106 03/21/18 03:00 112 16 122/98 (106) 96 03/21/18 02:57 113 17 100 03/21/18 02:00 101 16 95/54 (68) 96 03/21/18 01:38 90 16 100 03/21/18 01:00 97 16 95/54 (68) 96 03/21/18 00:00 99.5 100 16 98/62 (74) 96 99.5 03/21/18 00:00 100 03/21/18 00:00 97 03/21/18 00:00 Mechanical Ventilator 03/20/18 23:11 99 16 100 03/20/18 23:00 100 16 107/69 (82) 96 03/20/18 22:00 92 16 99/56 (70) 97 03/20/18 21:02 99 16 100 03/20/18 21:00 99 16 111/65 (80) 96 03/20/18 20:00 99.0 103 16 111/62 (78) 96 99.0 03/20/18 20:00 Mechanical Ventilator 03/20/18 20:00 100 03/20/18 20:00 103 03/20/18 19:02 106 16 100 03/20/18 19:00 101 15 125/72 (89) 94 18 18:00 104 16 115/68 (84) 94 03/20/18 17:00 110 16 121/70 (87) 96 03/20/18 16:50 105 16 100 03/20/18 16:00 100 03/20/18 16:00 Mechanical Ventilator 03/20/18 16:00 110 03/20/18 16:00 99.2 111 16 119/71 (87) 97 99.2 03/20/18 15:00 111 24 126/85 (99) 94 03/20/18 14:50 108 16 100 03/20/18 14:00 111 19 147/81 (103) 94 03/20/18 13:40 108 16 100 03/20/18 13:00 106 23 124/77 (93) 96 03/20/18 12:00 99.0 106 24 132/84 (100) 95 99.0 03/20/18 12:00 107 03/20/18 12:00 Mechanical Ventilator 03/20/18 12:00 100 03/20/18 11:00 108 23 133/82 (99) 96 03/20/18 10:40 106 16 100 18 10:00 107 22 144/97 (113) 96 03/20/18 09:30 104 16 100 03/20/18 09:00 102 18 126/74 (91) 97 Objective: poorly responsive intubated coars3 breath sounds bilaterally without rhonchi or wheeze S1S2RR tachy without MRG NABS nontender no HSM; GT no CCE nonfocal and withdrawn Accucheck: 148 Esvin Cortez MD Mar 21, 2018 08:26
[2018-03-21] MEDS ORDERED: PCA Morphine 1mg/ml 30 ML IV PRN (13:00)
[2018-03-21] MEDS ORDERED: Rate Change Narcotic Drip MISC PRN (13:30)
[2018-03-21] MEDS ORDERED: Morphine Sulfate 2mg/ml Inj IVP PRN (13:30)
[2018-03-21] MEDS ORDERED: Narcotic Shift Volume MISC SCH (19:00)
--- NOTE | 2018-03-23 08:27 | Discharge Summary ---
Discharge Summary Discharge Summary _ SUMMARY DATE OF ADMISSION: 03/12/2018 DATE OF EXPIRATION: 03/21/2018 REASON FOR ADMISSION: 57 years old female with past medical history of chronic respiratory failure with tracheostomy, status post recent decannulation, seizure disorder, diabetes mellitus, asthma, resident of [facility] facility, presented to emergency department after full cardiopulmonary arrest. Patient arrested about 7 minutes prior to arrival AND had ongoing CPR by paramedics upon arrival. Patient required oral intubation and placement of central line in emergency department. Patient received epinephrine and bicarbonate 1. Patient subsequently had return of spontaneous circulation. Patient exhibited brief episode of ventricular. tachycardia that resolved spontaneously , prior to cardioversion. Patient was given IV amiodarone. Laboratory workup revealed WBC 25.6, hemoglobin 11.1, hematocrit 36. Troponin negative. Pro BNP 4798. Albumin 2.0. Glucose over 400. Urinalysis revealed evidence of UTI. EKG revealed normal sinus rhythm. l Chest x-ray revealed patchy bilateral lung opacities , right greater than left. Patient admitted to ICU with diagnoses : status post cardiopulmonary arrest, acute respiratory failure, pneumonia, urinary tract infection,episode of ventricular tachycardia. CONSULTANTS: neurologist ID specialist Dr. Rojas surgery Dr. Yen [facility] COURSE: Patient admitted to ICU. Ventilator support and pulmonary toilet provided. Patient was followed up with daily ABG and chest x-ray. Settings were titrated as needed. Patient required pressor for hemodynamic support. Venous duplex bilateral lower extremity was negative. Infectious disease doctor closely followed. Urine culture revealed Escherichia coli ESBL. Sputum culture revealed Providencia and Acinetobacter MDR. IV antibiotics provided as per ID specialist recommendations. Neurologist closely follow. CT of the head revealed evidence of diffuse cerebral edema. No acute intracranial bleeding. Slight right to left midline shift but could indicate asymmetrical degree of cerebral edema. Electroencephalogram findings were consistent with severe encephalopathy, most probably of anoxic/ischemic nature. Unfortunately, patient continued to be comatose and showed no improvement in neurological function. Patient did not regain consciousness after anoxic/ischemic event. According to neurologist, prognosis of brain function recovery was dismal, given underlying pre-existing structural brain disease, superimposed recent anoxic ischemic cerebral insult with severe structural brain damage, and not regaining consciousness for over 8 days following anoxic/ischemic event. Seizure precautions were maintained. Antiseizure medications were continued. Tracheostomy placement initially was planned since patient was a full code. Surgeon consulted, seen and evaluated patient for possible tracheostomy placement. Blood sugar was managed with sliding scale of insulin. Hemoglobin and hematocrit were closely monitored. Patient received 1 unit of packed red blood cells for hemoglobin 7.6 hematocrit 24.2. Overall prognosis was poor, given no chance for neurological rrcovery. After discussion with family, family decided on comfort care with DNR/DNI status. Code status was changed on 03/19. Family later decided on terminal extubation. Morphine drip was started prior to terminal extubation. Patient was terminally extubated on 03/21 at 14:15. Supplemental oxygen 2 L via nasal cannula was placed for comfort. Patient subsequently went to asystole and was pronounced at 14: 53 on 03/21. \ Cause of : cardiopulmonary arrest. FINAL DIAGNOSES: Status post cardiopulmonary arrest Acute on chronic respiratory failure Possible sepsis Shock ( requiring pressors for hemodynamic support) UTI with Escherichia coli ESBL Pneumonia with Providencia and Acinetobacter MDR Diabetes mellitus Noncardiogenic pulmonary edema Severe anoxic encephalopathy Severe protein calorie malnutrition Anemia , status post blood transfusion I have been assigned to dictate discharge summary for this account. I was not involved in the patient's management. Ana Laura Amaya [employer] Mar 23, 2018 08:27
== END 2018-03-21 15:05 | disposition expired | DRG 720 ==
LOC: EDBD 10:23 → EMR 10:45 → EDBEDREQ 11:08 → ICU 14:42
PROC: 5A1955Z Respiratory Ventilation, Greater than 96 Consecutive Hours (ICD-10-PCS; principal; 2018-03-12)
PROC: 0BH17EZ Insertion of Endotracheal Airway into Trachea, Via Natural or Artificial Opening (ICD-10-PCS; 2018-03-12)
PROC: 30233N1 Transfusion of Nonautologous Red Blood Cells into Peripheral Vein, Percutaneous Approach (ICD-10-PCS; 2018-03-19)
DX: A41.9 Sepsis, unspecified organism (principal); J96.20 Acute and chronic respiratory failure, unspecified whether with hypoxia or hypercapnia; J69.0 Pneumonitis due to inhalation of food and vomit; R57.9 Shock, unspecified; E43 Unspecified severe protein-calorie malnutrition; R65.21 Severe sepsis with septic shock; R40.20 Unspecified coma; J15.8 Pneumonia due to other specified bacteria; G93.1 Anoxic brain damage, not elsewhere classified; N39.0 Urinary tract infection, site not specified; B96.20 Unspecified Escherichia coli [E. coli] as the cause of diseases classified elsewhere; E11.9 Type 2 diabetes mellitus without complications; Z86.74 Personal history of sudden cardiac arrest; Z16.12 Extended spectrum beta lactamase (ESBL) resistance; Z16.39 Resistance to other specified antimicrobial drug; Z16.24 Resistance to multiple antibiotics; D64.9 Anemia, unspecified; E83.39 Other disorders of phosphorus metabolism; G40.909 Epilepsy, unspecified, not intractable, without status epilepticus; Z43.1 Encounter for attention to gastrostomy; Z22.322 Carrier or suspected carrier of Methicillin resistant Staphylococcus aureus
CPT/HCPCS: 36415; 36600; 70450; 71045; 80048; 80053; 80202; 80299; 81001; 81003; 82550; 82553; 82803; 82962; 83605; 83735; 83880; 84100; 84484; 85007; 85025; 85610; 85730; 86850; 86900; 86901; 86920; 87040; 87070; 87081; 87086; 87181; 87205; 93005; 93970; 94002; 94003; 95819; 96365; 96366; 96367; 99285; J1815; J8499